=== PATIENT | male | born 1980 | race Caucasian/White ===

== ENCOUNTER 2021-06-06 14:15 | Outpatient (REF) | payer OTHER, SELFPAY ==
--- NOTE | ~2021-06-06 | MM_ITS ---
EXAMINATION: MM DIAGNOSTIC DIGITAL BREAST TOMOSYNTHESIS, BILATERAL US DIAGNOSTIC ULTRASOUND BREAST, LEFT CLINICAL INFORMATION: 41-year-old male with increased fullness left breast. Prior history asymmetric gynecomastia. No nipple discharge. COMPARISON: Mammography: 09/14/2018, bilateral breast ultrasound 09/14/2018. TECHNIQUE: Digital breast tomosynthesis is performed in both the craniocaudal and mediolateral oblique views along with computer-aided detection (CAD). Synthesized 2D images are generated from the tomosynthesis. Ultrasound left breast is targeted to the area of palpable fullness as well as the retroareolar and periareolar region. Grayscale imaging and color Doppler are performed without and with harmonics. FINDINGS: There are scattered areas of fibroglandular density (ACR BI-RADS breast composition Category b). Prominent bilateral retroareolar musculature again present similar to prior mammography 2019. There is prominent asymmetric retroareolar and central left gynecomastia similar in pattern to prior exam 2019, borderline increased by 1-2 cm. There is trace retroareolar right gynecomastia. There is no mass or abnormal calcifications. The axilla and skin contours are unremarkable. No skin thickening or coarsening of the stromal markings. Ultrasound left breast demonstrates gynecomastia pattern corresponding to the mammography. There is no superimposed cystic or solid mass or architectural abnormality. No skin thickening or edema tracking in soft tissue planes. Results are discussed with the patient at time of visit. MM/MM tomosynthesis diagnostic BI IMPRESSION: Left: -Prominent chronic asymmetric gynecomastia, borderline increased since 2019. -No mass or architectural abnormality. -Right: -Trace retroareolar gynecomastia. ASSESSMENT: BI-RADS 2: Benign RECOMMENDATION: Patient should be managed based on the clinical impression. If clinically indicated, further evaluation may be considered with surgical consult. Decision to proceed with biopsy should be based on clinical grounds and degree of clinical concern.
== END 2021-06-06 14:16 | disposition home or self-care (01) ==
LOC: HO.MAMMO 14:15
PROVIDERS: PCP Internal Medicine; Visit Provider Internal Medicine
DX: N64.4 Mastodynia (principal); N62 Hypertrophy of breast; N63.20 Unspecified lump in the left breast, unspecified quadrant
CPT/HCPCS: 76642; 77062; 77066

== ENCOUNTER 2022-08-14 13:16 | Outpatient (REF) | payer OTHER, SELFPAY ==
--- NOTE | ~2022-08-14 | MM_ITS ---
EXAMINATION: MM DIAGNOSTIC DIGITAL BREAST TOMOSYNTHESIS, BILATERAL US DIAGNOSTIC ULTRASOUND BREAST, BILATERAL CLINICAL INFORMATION: 42-year-old male with history asymmetric gynecomastia, greater on left. New fullness on right. No nipple discharge. COMPARISON: Mammography: 06/06/2021, 09/14/2018 (diagnostic baseline); bilateral ultrasound 09/14/2018, left ultrasound 06/06/2021. TECHNIQUE: Digital breast tomosynthesis is performed in both the craniocaudal and mediolateral oblique views along with computer-aided detection (CAD). Synthesized 2D images are generated from the tomosynthesis. Ultrasound bilateral breasts is performed using grayscale imaging and color Doppler without and with harmonics. FINDINGS: There are scattered areas of fibroglandular density (ACR BI-RADS breast composition Category b). There is normal prominent bilateral retromammary musculature similar to prior exams. There is bilateral gynecomastia type parenchymal pattern, greater on the left. Left breast gynecomastia is stable to borderline increased from prior exam in the right side is increased from prior studies. There is no focal underlying mass or architectural abnormality or abnormal calcifications. The axilla and skin contours are unremarkable. No skin thickening or coarsening of the stromal markings. Ultrasound bilateral breasts demonstrate no cystic or solid mass or architectural abnormality. There is a gynecomastia type pattern, slightly greater on the left. No skin thickening or edema tracking in soft tissue planes. No hyperemia. Results are discussed with the patient at time of visit. MM/MM tomosynthesis diagnostic BI IMPRESSION: -Bilateral asymmetric gynecomastia, greater on left. -Right gynecomastia is increased from prior exam. ASSESSMENT: BI-RADS 2: Benign RECOMMENDATION: Patient should be managed based on the clinical impression. If clinically indicated, further evaluation may be considered with surgical consult. Decision to proceed with biopsy should be based on clinical grounds and degree of clinical concern.
== END 2022-08-14 13:17 | disposition home or self-care (01) ==
LOC: HO.MAMMO 13:16
PROVIDERS: PCP Internal Medicine; Visit Provider Internal Medicine
DX: N62 Hypertrophy of breast (principal)
CPT/HCPCS: 76642; 77062; 77066

== ENCOUNTER 2023-03-05 06:12 | Day surgery (SDC) | payer OTHER, SELFPAY ==
[2023-03-03 14:55] VITALS: BMI 24.8
--- NOTE | 2023-03-04 10:11 | HO.ANESPROP2 ---
HPI - Anesthesia Eval Consult details Narrative: 43yo M for Upper Endoscopy and Colonoscopy FORMERLY [facility] Past Medical History Medical History PTSD (post-traumatic stress disorder) ADHD (attention deficit hyperactivity disorder) GERD (gastroesophageal reflux disease) Asthma Surgical History Surgical History Hx of knee surgery Social History Social History Patient Tobacco Use Status: Never used Tobacco Use of substances other than those prescribed or required for medical reasons: No Are you DNR?: No Advance Directives: No Advance Directives Information Provided: Yes Meds Allergies Allergy/AdvReac Type Severity Reaction Status Date / Time No Known Allergies Allergy Verified 03/05/23 06:23 Home Medications Medication Instructions Recorded Confirmed Last Taken Type atomoxetine 40 mg capsule 40 mg PO QAM 03/03/23 03/03/23 Unknown History omeprazole 20 mg capsule,delayed 20 mg PO DAILY 03/03/23 03/03/23 Unknown History release prazosin 2 mg capsule 2 mg PO BEDTIME 03/03/23 03/03/23 Unknown History Exam Height,Weight and Vital Signs: Height 5 ft 10 in Weight 78.471 kg Assessment and Plan Assessment Anesthesia Assessment: Chart Reviewed
[2023-03-05 06:17] VITALS: BMI 24.3
[2023-03-05 06:46] VITALS: BP 132/77; PULSE 72; RESP 16; TEMP 36.3; O2SAT 100
[2023-03-05] MEDS: Lactated Ringers 1,000 ML 100 ML IVCONT (06:47)
--- NOTE | 2023-03-05 07:22 | P.CONAN_ITS ---
[facility] Past Medical History Medical History PTSD (post-traumatic stress disorder) ADHD (attention deficit hyperactivity disorder) GERD (gastroesophageal reflux disease) Asthma Functional capacity: independent ambulation Family History Family history of problems with anesthesia: No Surgical History Surgical History Hx of knee surgery History of Problems with Anesthesia: No Social History Social History Patient Tobacco Use Status: Never used Tobacco Use of substances other than those prescribed or required for medical reasons: No Are you DNR?: No Advance Directives: No Advance Directives Information Provided: Yes Meds Allergies Allergy/AdvReac Type Severity Reaction Status Date / Time No Known Allergies Allergy Verified 03/05/23 06:23 Active Medications: Current Medications Albuterol Sulfate (Albuterol Sulfate (0.083%) 2.5 Mg/3 Ml Vial.Neb) 2.5 mg INHALE ONCE PRN PRN Reason: Shortness of Breath/Wheezing Lactated Ringer's (Lr) 1,000 mls @ 100 mls/hr IVCONT .Q10H MARTIN Last Admin: 03/05/23 06:47 Dose: 100 mls/hr Sodium Biphosphate/Sodium Phosphate (Sodium Phosphate,Sangamon-Dibasic 133 Ml Enema) 133 ml NV ONCE PRN PRN Reason: Poor Colonoscopy Prep Results Home Medications Medication Instructions Recorded Confirmed Last Taken Type atomoxetine 40 mg capsule 40 mg PO QAM 03/03/23 03/03/23 Unknown History omeprazole 20 mg capsule,delayed 20 mg PO DAILY 03/03/23 03/03/23 Unknown History release prazosin 2 mg capsule 2 mg PO BEDTIME 03/03/23 03/03/23 Unknown History Exam Height,Weight and Vital Signs: Height 5 ft 10 in Weight 76.929 kg Last Vital Signs Temp 97.4 F 03/05/23 06:46 Pulse 72 03/05/23 06:46 Resp 16 03/05/23 06:46 BP 132/77 03/05/23 06:46 Pulse Ox 100 03/05/23 06:46 O2 Del Method Room Air 03/05/23 06:46 Airway Mallampati Class: II TM Dist: >3cm Neck ROM: Full Heart: RRR Lungs: CTA Assessment and Plan Assessment Anesthesia Assessment: Anesthesia Plan Discussed Final Anesthetic Review Family History of Problems with Anesthesia: No History of Problems with Anesthesia: No ASA Class: II Final Preanesthetic Review: Meds/Allgs Chart Reviewed, Consent Obtained/Reviewed and Anes Risks/Benef Reviewed Patient Risk: Low Procedure Risk: Low Anesthetic Plan Anesthetic Plan: MAC: Disposition: Standard PACU
[2023-03-05 08:36] VITALS: BP 99/58; PULSE 78; RESP 16; TEMP 36.1; O2SAT 96
--- NOTE | 2023-03-05 08:37 | PM.OP ---
Brief Operative Note Date of Service: 03/05/23 Pre-op diagnosis: GERD, Change in BM's Post-op diagnosis: other (GERD, Internal hemorrhoids) Procedure: EGD with biopsies, Colonoscopy to the cecum and TI Surgeon: Luis Solorio MD Anesthesia: MAC Was an Assembler Adjuster used for this Procedure?: No Estimated blood loss (mL): 2.0 Pathology: other (A. Descending duodenum B. Gastric antrum C. EG Junction at 39cm) Condition: stable Disposition: PACU
[2023-03-05 08:52] VITALS: BP 102/63; PULSE 69; RESP 16; O2SAT 98
--- NOTE | 2023-03-05 08:52 | HO.POSTANES ---
Post Anesthesia Evaluation Post Anesthesia Evaluation Date of Service: 03/05/23 Vital Signs: Vital Signs Temp Pulse Resp BP Pulse Ox O2 Del Method 03/05/23 08:36 97 F 78 16 99/58 L 96 Room Air 03/05/23 06:46 97.4 F 72 16 132/77 100 Room Air Anesthesia: Monitored Mental Status: Awake Pain Control: Satisfactory Nausea/Vomiting: None Hydration: Adequate Anesthesia-Related Issues: No Anes. Related Issues
[2023-03-05 09:02] VITALS: BP 110/65; PULSE 63; RESP 16; TEMP 36.3; O2SAT 100
--- NOTE | 2023-03-05 09:20 | OP_ITS ---
DATE OF SERVICE: 03/05/2023 SURGEON: Luis Solorio MD INDICATIONS: The patient presents for evaluation of gastroesophageal reflux and change in bowel habits. Full consent has been obtained from him for this, including risks of bleeding and perforation. PREOPERATIVE DIAGNOSIS: POSTOPERATIVE DIAGNOSIS: PROCEDURE PERFORMED: Esophagogastroduodenoscopy with biopsies and colonoscopy to the cecum and terminal ileum. ESTIMATED BLOOD LOSS: COMPLICATIONS: ANESTHESIA: Monitored anesthesia care. ASSISTANTS: SPECIMENS: PREOPERATIVE DIAGNOSES: Gastroesophageal reflux and change in bowel habits. POSTOPERATIVE DIAGNOSES: Gastroesophageal reflux and change in bowel habits, minimal hiatal hernia, internal hemorrhoids. DESCRIPTION OF PROCEDURE: The patient was placed in the left lateral decubitus position. The Olympus video gastroscope was passed in the posterior oropharynx and upper esophagus under direct vision. The scope was passed slowly to the distal esophagus. The gastroesophageal junction appeared at 39 cm. There was some very minimal irregularity consistent with reflux but no evidence of any esophagitis nor Copeland's esophagus. There was a minimal hiatal hernia. The scope was advanced to the pylorus and the duodenum was cannulated to the descending portion. The duodenum including the bulb appeared normal without mass or ulceration. Biopsies were obtained from the second and third portions of the duodenum. The scope was withdrawn back to the stomach. The gastric antrum had some minimal areas of erythema, but no sign of any inflammation nor ulcers. There was good peristalsis. Biopsies were obtained from the antrum. The scope was retroflexed visualizing the proximal stomach carefully, which appeared normal, without any sign of mass or ulceration. The scope was straightened and withdrawn back to the esophagus. Biopsies were obtained at the EG junction at 39 cm. Proximal to this, the esophageal mucosa appeared normal. The scope was withdrawn from the patient. He was turned around for the colonoscopy. The digital rectal exam revealed no abnormalities. The Olympus video pediatric colonoscope was entered into the rectum and advanced easily to the cecum. Once in the cecum, I did identify normal-appearing cecal pouch with appendiceal orifice and a normal-appearing ileocecal valve. The terminal ileum was cannulated and appeared normal. The scope was withdrawn back in the colon. The entire cecum and ileocecal valve appeared normal. The scope was slowly withdrawn assessing all mucosal surfaces carefully. Preparation was excellent. I did not visualize any sign of polyps, colitis, or angiodysplasia. In the rectum, scope was retroflexed visualizing small internal hemorrhoids, but no other pathology. The rectal mucosa appeared normal. The scope was straightened and withdrawn from the patient. He tolerated both procedures well and was returned to recovery area in stable condition. IMPRESSION: 1. Minimal hiatal hernia and reflux. 2. Rule out celiac disease. 3. Internal hemorrhoids. PLAN: The results of the biopsies will be checked. At this point, he is doing well on his daily omeprazole and I did advise him to continue that. He was advised to increase dietary fiber and/or add a supplemental fiber such as Metamucil or Citrucel with plenty of water to help with his bowel movements. I would recommend a repeat colonoscopy in 10 years. He was advised not to use any aspirin and NSAIDs for 1 week. If things are stable, he will see me on a p.r.n. basis. MD VESNA Leblanc/NALLELY / [phone] MTDD
== END 2023-03-05 09:25 | disposition home or self-care (01) ==
PROVIDERS: PCP Internal Medicine; Visit Provider Internal Medicine
PROC: (CPT 45378; principal; 2023-03-05 07:30)
DX: R19.4 Change in bowel habit (principal); K64.8 Other hemorrhoids; K21.9 Gastro-esophageal reflux disease without esophagitis; K44.9 Diaphragmatic hernia without obstruction or gangrene; J45.909 Unspecified asthma, uncomplicated; F43.10 Post-traumatic stress disorder, unspecified; F51.5 Nightmare disorder; F90.9 Attention-deficit hyperactivity disorder, unspecified type; Z79.899 Other long term (current) drug therapy; Z98.890 Other specified postprocedural states
CPT/HCPCS: 45378; 43239; 88305; 88342; J2704

== ENCOUNTER 2024-06-10 16:34 | Emergency (ER) | payer OTHER, SELFPAY ==
--- NOTE | ~2024-06-10 | CT_ITS ---
CLINICAL HISTORY: headache CT head without contrast Comparison: None Findings: No intra-axial mass, midline shift, hydrocephalus, or acute hemorrhage. No significant atrophy-like change or white matter disease. There is partial opacification of the maxillary sinuses, ethmoid air cells and inferior frontal sinuses. The orbits are unremarkable. There is no acute fracture. IMPRESSION: 1. No acute intracranial findings. 2. Moderate paranasal sinus disease This document has been electronically signed by: Slava Shultz MD on 06/10/2024 18:38:09
[2024-06-10 17:39] VITALS: BP 143/86; PULSE 65; RESP 16; TEMP 35.8; O2SAT 100; BMI 25.0
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
[2024-06-10 20:32] VITALS: BP 147/88; PULSE 55; RESP 18; TEMP 36.4; O2SAT 100
[2024-06-10 22:17] VITALS: BP 137/88; PULSE 62; RESP 16; TEMP 36.6; O2SAT 100
[2024-06-10 22:57] LABS: MANUAL DIFF FLAG NO
[2024-06-10 22:59] LABS: Basophils Percent Auto 0.4 % (0-2); Eosinophils Absolute Auto 0.2 X10*3/uL (0.0-0.4); Hematocrit 40.9 % (42.0-52.0); Hemoglobin 14.3 g/dl (14.0-18.0); Imm Gran Abs Auto 0.01 X10*3/uL (0.00-0.03); Imm Gran Pct Auto 0.2 % (0.0-0.4); Lymphocytes Absolute Auto 2.1 X10*3/uL (1.2-4.9); Lymphocytes Percent Auto 40.9 % (20-40); Mean Corpuscular Hemoglobin 30.4 pg (27.0-33.0); Mean Corpuscular Volume 86.8 fL (80.0-98.0); Mean Platelet Volume 9.5 fL (9.4-12.4); Monocytes Absolute Auto 0.4 X10*3/uL (0.1-1.2); Monocytes Percent Auto 8.5 % (2-11); Neutrophils Absolute Auto 2.4 x10*3/uL (2.0-8.3); Platelet Count 159 X10*3/uL (160-400); Red Blood Count 4.71 X10*6/uL (4.60-5.80); Red Cell Distribution Width 12.4 % (11.0-16.0); White Blood Count 5.1 X10*3/uL (4.8-10.8)
[2024-06-10] MEDS: Butalb/Acetamin/Caff 50/325/40 TABLET 1 TAB PO (23:17)
[2024-06-10 23:21] LABS: Alanine Aminotransferase 21 U/L (0-40); Albumin Level 4.1 g/dL (3.5-5.0); Alkaline Phosphatase 53 U/L (39-117); Anion Gap 11 (12-20); Aspartate Amino Transferase 22 U/L (5-37); Bilirubin Direct 0.1 mg/dL (0.0-0.5); Bilirubin Total 0.4 mg/dL (0.0-1.0); Blood Urea Nitrogen 11 mg/dL (9-16); C Reactive Protein < 0.10 mg/dL (< or = 0.50); Calcium 9.2 mg/dL (8.4-10.2); Carbon Dioxide 26 mmol/L (22-29); Chloride 109 mmol/L (96-108); Creatinine Clr Calc Pharmacy 101.3; Estimated Glomerular Filt Rate > 60; Glucose Random 95 mg/dL (60-115); Magnesium 2.1 mg/dL (1.6-2.6); Potassium 4.7 mmol/L (3.3-5.1); Sodium 141 mmol/L (135-145); Total Protein 7.3 g/dL (6.5-8.0)
[2024-06-10 23:35] LABS: TSH reflex Free T4 3.66 uIU/mL (0.32-4.0)
[2024-06-10 23:40] LABS: Erythrocyte Sedimentation Rate 6 MM/HR (0-15)
[2024-06-11 00:24] VITALS: BP 137/94; PULSE 59; RESP 16; TEMP 36.6; O2SAT 99
[2024-06-11 00:25] VITALS: BP 137/94; PULSE 59; RESP 16; TEMP 36.6; O2SAT 99
== END 2024-06-11 00:25 | disposition home or self-care (01) ==
PROVIDERS: Nurse Practitioner Family; Emergency Provider Emergency Medicine
DX: R51.9 Headache, unspecified (principal); Z79.899 Other long term (current) drug therapy
CPT/HCPCS: 36415; 70450; 80048; 80076; 83735; 84443; 85025; 85652; 86140; 99284

== ENCOUNTER → 2024-06-10 17:47 | Outpatient (BNV) | payer OTHER, SELFPAY | PROVIDERS: Visit Provider Radiology Vascular & Interventional Radiology | DX: J34.89 Other specified disorders of nose and nasal sinuses (principal) | CPT/HCPCS: 70450 ==

== ENCOUNTER 2024-07-03 00:13 | Emergency (ER) | payer OTHER, SELFPAY ==
--- NOTE | 2024-07-03 | ECG_ITS ---
Test Reason : CP Blood Pressure : */* mmHG Vent. Rate : 62 BPM Atrial Rate : 62 BPM P-R Int : 180 ms QRS Dur : 104 ms QT Int : 390 ms P-R-T Axes : 19 -2 22 degrees QTcB Int : 395 ms Normal sinus rhythm Normal ECG No previous ECGs available Referred By: Generic ED Physician Electronically Signed By: BONI COOK
[2024-07-03 00:23] VITALS: BP 159/97; PULSE 69; RESP 20; TEMP 36.8; O2SAT 100; BMI 25.9
[2024-07-03 00:27] LABS: MANUAL DIFF FLAG NO
[2024-07-03 00:28] LABS: Basophils Percent Auto 0.6 % (0-2); Eosinophils Absolute Auto 0.2 X10*3/uL (0.0-0.4); Eosinophils Percent Auto 3.7 % (0-4); Hematocrit 39.8 % (42.0-52.0); Hemoglobin 13.9 g/dl (14.0-18.0); Imm Gran Abs Auto 0.01 X10*3/uL (0.00-0.03); Imm Gran Pct Auto 0.2 % (0.0-0.4); Lymphocytes Absolute Auto 2.2 X10*3/uL (1.2-4.9); Lymphocytes Percent Auto 41.9 % (20-40); Mean Corpuscular HGB Conc 34.9 g/dl (31.0-36.0); Mean Corpuscular Hemoglobin 30.2 pg (27.0-33.0); Mean Corpuscular Volume 86.3 fL (80.0-98.0); Mean Platelet Volume 9.6 fL (9.4-12.4); Monocytes Absolute Auto 0.5 X10*3/uL (0.1-1.2); Monocytes Percent Auto 9.7 % (2-11); Neutrophils Absolute Auto 2.3 x10*3/uL (2.0-8.3); Neutrophils Percent Auto 43.9 % (45-73); Platelet Count 171 X10*3/uL (160-400); Red Blood Count 4.61 X10*6/uL (4.60-5.80); Red Cell Distribution Width 12.2 % (11.0-16.0); White Blood Count 5.2 X10*3/uL (4.8-10.8)
[2024-07-03 00:47] LABS: Alanine Aminotransferase 24 U/L (0-40); Albumin Level 4.1 g/dL (3.5-5.0); Alkaline Phosphatase 54 U/L (39-117); Anion Gap 9 (12-20); Aspartate Amino Transferase 21 U/L (5-37); Bilirubin Total 0.2 mg/dL (0.0-1.0); Blood Urea Nitrogen 12 mg/dL (9-16); Carbon Dioxide 28 mmol/L (22-29); Chloride 109 mmol/L (96-108); Creatinine Clr Calc Pharmacy 94.5; Estimated Glomerular Filt Rate > 60; Glucose Random 112 mg/dL (60-115); Potassium 3.5 mmol/L (3.3-5.1); Sodium 142 mmol/L (135-145); Total Protein 6.9 g/dL (6.5-8.0)
[2024-07-03 00:54] LABS: Troponin-I High Sensitivity < 2.7 ng/L (<3.5-35.0)
--- OUTSIDE RECORDS SUMMARY | 2024-07-03 00:57 | XMS_ITS ---
Author Name [facility] [place] Address [address] [place] [address] Care Team Providers Care Payroll Master Name Role Phone SHELL TRAN Primary Care Provider Unavailabl e Insurance Providers: All historical and current Section Date Range: From patient's date of to the date document was created. This section includes the names of all active insurance providers for the patient. Insurance Provider Type of Coverage Plan Name Start of Policy Coverage End of Policy Coverage Group Number Member ID Insurance Provider's Telephone Number Policy Turner's Name Patient's Relationship to Policy Turner [facility] CE ORGANIZAT ION [facility] Sep 28, 2020 [id number] [phone] ESTELAVIANEYSHONDA VERGARA PATIENT OPTUM RX [id number] PREFERRED PROVIDER ORGANIZAT ION (PPO) HEALT H [facility] [place] July 29, 2022 [id number] [phone] ESTELASHERIF SHONDA PATIENT UMR PREFERRED PROVIDER ORGANIZAT ION (PPO) HEALT H [facility] [place] July 29, 2022 [id number] [phone] ESTELAVIANEYSHONDA VERGARA PATIENT UMR* PREFERRED PROVIDER ORGANIZAT ION (PPO) HEALT H [facility] [place] July 29, 2022 [id number] [phone] SHONDA BARLOW PATIENT Selected Encounter This section includes the information on record at [place] for the Encounter. Date/Time Encounter Type Encounter Description Reason Provider Source Sep 04, 2023 01:00 PM THERAPEUTIC EXERCISES PHYSICAL THERAPY ICD-10-CM M54.50 Low back pain, unspecified HUE GATES Chad Encounter Template Text not used by [place] Assessments - Encounter Diagnoses This section includes the primary and secondary diagnoses documented for the Encounter. Date/Time Primary/Secondary Diagnosis Diagnosis Name Provider Source Sep 04, 2023 01:48 PM PRIMARY Low back pain, unspecified [place] [facility] [place] [facility] Plan of Treatment: Future Appointments (+ 6 months) and Future Tests (+/- 45 days) The Plan of Treatment section includes future care activities for the [facility] [place] [facility] This section includes future appointments and future orders which are active, pending or scheduled. Future Appointments This section includes appointments that were scheduled to occur 6 months from the date of the Encounter, up to a maximum of 20 appointments. The data comes from all [place] treatment facilities. Appointment Date/Time Appointment Type Appointme nt Facility Name Nov 17, 2023 09:00 AM AMBULATORY - MEDICINE [facility] Social History: Smoking Status (Most current) and Tobacco Use (All prior to encounter date) This section includes the most current, and the historical, smoking and tobacco- related health factors from the [facility] facility where the Encounter took place. Current Smoking Status This section includes the most current smoking, or tobacco-related health factor, from the [place] facility where the Encounter took place. Date/Time Current Smoking Status Comment Nishant valderrama Nov 20, 2022 01:00 PM [facility] Tobacco Use History This section includes a history of the smoking, or tobacco-related health factors, that were collected on or before the date of the Encounter. The data comes from the [place] facility where the Encounter took place. Date/Time Smoking Status/Tobacco Use Comment F acility Sep 05, 2021 01:00 PM VA-TOBACCO NEVER USED [place] [facility] [place] [facility] May 10, 2020 09:00 AM VA-TOBACCO NEVER USED [place] [facility] [place] [facility] Jan 07, 2019 10:45 AM VA-TOBACCO NEVER USED [place] [facility] [place] [facility] Jul 24, 2017 12:53 PM LIFETIME NON-TOBACCO USER [place] [facility] [place] [facility] Jul 15, 2016 09:35 AM LIFETIME NON-TOBACCO USER [place] [facility] [place] [facility] Sep 21, 2012 02:42 PM LIFETIME NON-TOBACCO USER [place] [facility] [place] [facility] Encounter Notes: All associated encounter notes This section contains the clinical notes associated to the Encounter. Date/Time Encounter Note(s) Provider Source Sep 04, 2023 12:44 PM PHYSICAL THERAPY N OTE: LOCAL TITLE: PHYSICAL THERAPY STANDARD TITLE: PHYSICAL THERAPY NOTE DATE OF NOTE: SEP 04, 2023@12:44 ENTRY DATE: SEP 04, 2023@12:44:31 AUTHOR: HUE GATES COSIGNER: URGENCY: STATUS: COMPLETED Initial Evaluation date: Jun Treat Date: 09/04/23 Treatment #:3 Treatment time: 30 mins Diagnosis: Low back pain, unspecified(ICD-10-CM M54.50) Provider: [facility] Precautions: Patient identified by full name and date of SUBJECTIVE: surgery 08/19 torn meniscus repair fraying trimed out had some fraying on underside of the knee cap. They trimmed it out. Then i had some increase swelling they did a cortizone injection, taped for lateral assist. [facility] in [place], this morning for cortizone and taping. Getting seen for PT for the knee at [facility], every other day since. I am scheduled to wrap up with them on 09/07 last scheduled. Back is on and off again. But this is due to sitting more than I want given the knee surgery. I need to be moving to feel better. 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 I do still get the tightness in the low back but it is not as much as it had been. OBJECTIVE: THERAPEUTIC EXERCISE: MINUTES:25 self massage release gluteals with softball gluteal foam rolling TA bracing in seated with heel pull into chair legs.(alt with shoulder extension into thighs) SELF CARE/EDUCATION: MINUTES: HEP:Access Code: [email or web address] Patient education was provided for all aspects of care during this clinical encounter. ASSESSMENT:Patient had left knee meniscectomy on 08/19, since has been being seen at [facility] for PT follow up care. The patient returned to PT [place] today reporting he has 2 more visits with [facility] PT. Pt was scheduled for follow up here in 3 weeks to ensure no conflicts with care. The patient reported overall significant reduction in pain levels, frequency and duration of low back pains. The patient noted benefit from last PT session where we worked on STM of the gluteals to loosen up the area to decrease mechanical forces on the lumbar region. The patient was shown how to self mobilize the area with softball on wall today, with note of feeling looser following. Patient noted he has trouble with core activation. Patient was instructed in TA bracing with external activation for improved quality of contraction and ability to actively breath while engaging TA. PLAN: [x]Continue with plan of care. [x]Pt to perform HEP as prescribed. Goals, within: []2-4 wks [x]4-6wks []8wks [x]Increase walking/standing tolerance to 60 minutes in order to Ambulate community distances independently with pain < 2/10. [x]Return to recreational activities at [facility], symptom free. [x]Pt will report no increase in pain in the lumbar region > 2/10 with transition from sitting to standing to improve QOL. [x]Pt will increase supine 90/90 by 10-20 degrees to demonstrate increase in HS length. [x]Pt will decrease prone passive knee flexion restriction to demonstrate improved hip flexor/quad length to minimal restriction. [x]Pt will be independent with HEP for increased LE flexibility and optimal progress with PT. PLAN: Pt to be seen 1x/2-3weeks for 2-3 more sessions working on progressive strengthening for more functional movements/activities POC to include: []Low impact cardio: []Nustep []Recumbent bike []Recumbent elliptical []TM [x]Manual: [x]STM/DTM []METs/SCS [x]IASTM [x]Joint mobilizations [x]Therex: [x]Progressive Core [x]Progressive LQ [x]Lumbar flex [x]LQ flex [x] Foam rolling [x]Neuro Re-education: []Static [x]Dynamic []Dual-Task [x]Education: []Posture []Ergonomics [x]Bodymechanics []Self-care strategies [] PNE [x]Modalities(PRN): [x]Heat/Ice []Estim/Tens []Mechanical traction []K-tape [] Biofreeze [x]At next visit: pallof press, elevated planks, side planks (+thread the needle when ready) as ready: Good mornings, DL to stairs progressive weights, SLRDL stairs with cones and progressive weights (both progress to floor as ready) wall sits, wall squats( as knee permits) /glenny/ HUE GATES, PT, DPT PHYSICAL THERAPIST Signed: 09/04/2023 13:48 HUE GATES [facility] [place] [facility]
--- OUTSIDE RECORDS SUMMARY | 2024-07-03 00:57 | XMS_ITS | Encounter Summary ---
Author Name [facility] [place] [facility] [place] [facility] [place] Address [address] [place] [address] Care Team Providers Care Mechanic Name Role Phone MARC SHELL Primary Care Provider Unavailabl e Insurance Providers: [...] Name Patient's Relationship to Policy Turner [facility] CE ORGANIZAT ION [facility] Sep 28, 2020 [id number] [phone] SHONDA BARLOW PATIENT OPTUM RX [id number] PREFERRED PROVIDER ORGANIZAT ION (PPO) HEALT H [facility] [place] July 29, 2022 [id number] [phone] SHONDA BARLOW PATIENT UMR PREFERRED PROVIDER ORGANIZAT ION (PPO) HEALT H [facility] [place] July 29, 2022 [id number] [phone] SHONDA BARLOW PATIENT UMR* PREFERRED PROVIDER ORGANIZAT ION (PPO) HEALT H [facility] [place] July 29, 2022 [id number] [phone] ESTELASHONDA GORMAN PATIENT Selected Encounter This section includes the information on record at [place] for the Encounter. Date/Time Encounter Type Encounter Description Reason Provider Source Nov 17, 2023 09:00 AM OFFICE O/P EST MOD 30 MIN PRIMARY CARE/MEDICINE ICD-10-CM Z77.29 Contact with and exposure to other hazardous substances SHELL TRAN Chad Encounter Template Text not used by [place] Assessments - Encounter Diagnoses This section includes the primary and secondary diagnoses documented for the Encounter. Date/Time Primary/Secondary Diagnosis Diagnosis Name Provider Source Nov 17, 2023 09:40 AM PRIMARY Contact with and exposure to other hazardous substances FURCOLO,SHELL [facility] [place] [facility] Nov 17, 2023 09:40 AM SECONDARY Attention-deficit hyperactivity disorder, unspecified type FURCOLO,SHELL [facility] [place] [facility] Nov 17, 2023 09:40 AM SECONDARY Cough variant asthma FURCOLO,SHELL [facility] [place] [facility] Nov 17, 2023 09:40 AM SECONDARY Gastro-esophageal reflux disease without esophagitis FURCOLO,SHELL [facility] [place] [facility] Nov 17, 2023 09:40 AM SECONDARY Low back pain, unspecified FURCOLO,SHELL [facility] [place] [facility] Nov 17, 2023 09:40 AM SECONDARY Mastodynia FURCOLO,SHELL [facility] [place] [facility] Nov 17, 2023 09:40 AM SECONDARY Pain in unspecified knee FURCOLO,SHELL [facility] [place] [facility] Nov 17, 2023 09:40 AM SECONDARY Post-traumatic stress disorder, unspecified FURCOLO,SHELL [facility] [place] [facility] Nov 17, 2023 09:40 AM SECONDARY Varicose veins of other specified sites FURCOLO,SHELL [facility] [place] [facility] Plan of Treatment: Future Appointments (+ 6 months) and Future Tests (+/- 45 days) The Plan of Treatment section includes future care activities for the patient from all [place] treatmentfacilities. This section includes future appointments and future orders which are active, pending or scheduled. Future Appointments This section includes appointments that were scheduled to occur 6 months from the date of the Encounter, up to a maximum of 20 appointments. The data comes from all [place] treatment facilities. Appointment Date/Time Appointment Type Appointme nt Facility Name Mar 22, 2024 11:00 AM AMBULATORY - NONE [facility] [place] [facility] Mar 30, 2024 08:30 AM AMBULATORY - MEDICINE [facility] [place] [facility] Vital Signs: All taken on the encounter date This section contains inpatient and outpatient Vital Signs collected on the date of the Encounter. Date/Time Temperature Pulse Blood Pressure Respiratory Rate SP02 Pain Height Weight Body Mass Index Source Nov 17, 2023 09:01 AM 97.5 58 131/81 16 100 4 177 25 [place] [facility] [place] [facility] Social History: Smoking Status (Most current) and Tobacco Use (All prior to encounter date) This section includes the most current, and the historical, smoking and tobacco- related health factors from the [place] facility where the Encounter took place. Current Smoking Status This section includes the most current smoking, or tobacco-related health factor, from the [place] facility where the Encounter took place. Date/Time Current Smoking Status Comment Nishant ity Nov 17, 2023 09:00 AM VA-TOBACCO NEVER USED [place] [facility] [place] [facility] Tobacco Use History This section includes a history of the smoking, or tobacco-related health factors, that were collected on or before the date of the Encounter. The data comes from the [place] facility where the Encounter took place. Date/Time Smoking Status/Tobacco Use Comment F acbrandy Nov 20, 2022 01:00 PM VA-TOBACCO NEVER USED [facility] [place] [facility] Sep 05, 2021 01:00 PM VA-TOBACCO NEVER USED [facility] [place] [facility] May 10, 2020 09:00 AM VA-TOBACCO NEVER USED [facility] [place] [facility] Jan 07, 2019 10:45 AM VA-TOBACCO NEVER USED [facility] [place] [facility] Jul 24, 2017 12:53 PM LIFETIME NON-TOBACCO USER [facility] [place] [facility] Jul 15, 2016 09:35 AM LIFETIME NON-TOBACCO USER [facility] [place] [facility] Sep 21, 2012 02:42 PM LIFETIME NON-TOBACCO USER [facility] [place] [facility] Encounter Notes: All associated encounter notes This section contains the clinical notes associated to the Encounter. Date/Time Encounter Note(s) Provider Source Nov 17, 2023 09:06 AM PREVENTIVE MEDICIN E NURSING NOTE: LOCAL TITLE: CLINICAL REMINDERS/NURSING STANDARD TITLE: PREVENTIVE MEDICINE NURSING NOTE DATE OF NOTE: NOV 17, 2023@09:06 ENTRY DATE: NOV 17, 2023@09:06:57 AUTHOR: CECIL MORALES EXP COSIGNER: URGENCY: STATUS: COMPLETED Tobacco Use Screening: The patient has never used tobacco. Alcohol Use Screen (AUDIT-C): Alcohol Screen: SCREEN FOR ALCOHOL (AUDIT-C) An alcohol screening test (AUDIT-C) was negative (score=0). 1. How often did you have a drink containing alcohol in the past year? Consider a drink to be a 12 ounce can or bottle of regular beer, 8 ounces of malt liquor, a 5 ounce glass of table wine, or a 1.5 ounce shot of liquor (like scotch, gin, or vodka). Never 2. How many drinks containing alcohol did you have on a typical day when you were drinking in the past year? Response not required due to responses to other questions. 3. How often did you have six or more drinks on one occasion in the past year? Response not required due to responses to other questions. /shweta/ CECIL MORALES LPN License Practical Nurse Signed: 11/17/2023 09:07 CECIL MORALES [place] [facility] [place] [facility] Nov 17, 2023 09:06 AM PHYSICIAN NOTE: LOCAL TITLE: MD NOTE STANDARD TITLE: PHYSICIAN NOTE DATE OF NOTE: NOV 17, 2023@09:06 ENTRY DATE: NOV 17, 2023@09:06:28 AUTHOR: SHELL TRAN EXP COSIGNER: URGENCY: STATUS: COMPLETED SHONDA BARLOW is a 43 year old WHITE MALE who is being seen today in primary care for routine follow up. == CARE TEAM == Community Primary Care Provider: [place] Specialists: VISHAL Flores Community Specialists: ortho- Dr. 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, +[place]- burn pits == HISTORY OF PRESENT ILLNESS == Patient presents today for routine follow-up. seen in ER for vertigo- given meclizine- somewhat effective- lasted 4 hrs knee surgery a few months ago- workmans comp == RELEVANT PAST MEDICAL HISTORY == Active problems - Computerized Problem List is the source for the followin. Scrotal varices 2. Posttraumatic stress disorder 3. Attention deficit hyperactivity disorder 4. Gastroesophageal reflux disease 5. Exposure to potentially hazardous substance 6. Gynecomastia 7. Left knee pain (SNOMED CT [id number]) 8. Cough variant asthma 9. Postconcussion syndrome 10. Low back pain (SNOMED CT [id number]) 11. 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 Active and Recently Outpatient Medications (excluding Supplies): Active Outpatient Medications Status 1) ALBUTEROL 90MCG (CFC-F) 200D ORAL INHL INHALE 2 PUFFS ACTIVE BY MOUTH EVERY 6 HOURS NEEDED 2) IBUPROFEN 800MG TAB TAKE ONE TABLET BY MOUTH THREE ACTIVE TIMES A DAY FOR PAIN TAKE WITH FOOD 3) OMEPRAZOLE 20MG EC CAP TAKE ONE CAPSULE BY MOUTH ACTIVE EVERY MORNING 30 MINUTES BEFORE BREAKFAST 4) PRAZOSIN HCL 2MG CAP TAKE ONE CAPSULE BY MOUTH AT ACTIVE BEDTIME FOR NIGHTMARE 5) PSYLLIUM ORAL PWD TAKE 2 TEASPOONFULS BY MOUTH ONCE ACTIVE DAILY FOR CONSTIPATION (MIX WITH AT LEAST 8OZ. OF WATER OR OTHER FLUID) Active Non-VA Medications Status 1) Non-VA MULTIVITAMIN/MINERALS CAP/TAB 1 TABLET BY ACTIVE MOUTH 2) Non-VA OMEPRAZOLE 20MG EC CAP 20MG BY MOUTH EVERY ACTIVE MORNING 30 MINUTES BEFORE BREAKFAST 7 Total Medications == REVIEW OF SYMPTOMS == NEGATIVE FOR: CONSTITUTION: no weight loss/gain, fatigue, fevers, night sweats HEENT: no vision problems, hearing loss,swallowing difficulties, sinus pain CV: no chest pain, palpitations, dyspnea on exertion, orthopnea RESP: no cough, shortness of breath, wheezing GI: no abdominal pain, N/V/D, constipation, blood in stool, normal appetite : no urinary frequency, nocturia, hematuria MUSC: no joint pain, joint swelling, muscle aches NEURO: no headaches, dizziness, memory loss, tremor, weakness PSYCH: no depression, anxiety, suicidal or homicidal thoughts SKIN: no rash, new skin lesions == PHYSICAL EXAM == Vitals: - - - - - - - B/P: 131/81 (11/17/2023 09:01) pulse: 58 (11/17/2023 09:01) resp: 16 (11/17/2023 09:01) temp: 97.5 F [36.4 C] (11/17/2023 09:01) Ht: 70 in [177.8 cm] (05/21/2023 13:11) Wgt: 177 lb [80.29 kg] (11/17/2023 09:01) BMI: BMI: 25.4 Exam: - - - - - - - General: A&O x 3, no acute distress, normal affect and mood Neck: normal thyroid, normal carotids- no bruits CV: RRR S1S2, no murmur Resp: LCTA bilat, no wheezing, rales or rhonchi Neuro: grossly intact, no visible tremor, normal memory and speech Extremities: normal movement of extremities, normal gait, normal strength no LE edema == RECENT LABS == BMP (FASTING) Collection DT Specimen Test Name Result Units Ref Range 05/21/2023 12:15 SERUM UREA NITROGEN 13 mg/dL 7 - 25 05/21/2023 12:15 SERUM GLUCOSE 93 mg/dL 65 - 100 05/21/2023 12:15 SERUM SODIUM 142 mmol/L 135 - 145 05/21/2023 12:15 SERUM POTASSIUM 3.9 mmol/L 3.5 - 5.0 05/21/2023 12:15 SERUM CHLORIDE 107 mmol/L 100 - 110 05/21/2023 12:15 SERUM CO2 28 mEq/L 20 - 05/21/2023 12:15 SERUM CREATININE, Serum 1.07 mg/dL 0.50 - 1.40 02/28/2021 07:28 SERUM !! eGFR (IDMS) >60 Ref: >=60 !! Indicates COMMENTS AVAILABLE...Refer to Interim Lab Report. LIVER PANEL TREND Collection DT Spec AST ALT T BILI ALK GLORIA T. PROT ALBUMIN 05/21/2023 12:15 SERUM 21 15 0.5 49 6.7 4.1 06/18/2022 10:48 SERUM 23 42 0.3 50 7.0 4.0 10/25/2021 13:54 SERUM 18 15 0.4 45 6.7 3.9 02/28/2021 07:28 SERUM 19 21 0.4 52 6.7 3.9 05/10/2020 08:00 SERUM 41 H 59 H 0.3 41 7.0 4.0 LIPID PANEL TREND Collection DT Spec CHOL HDL CHO/HDL LDL-c TRIG 05/21/2023 12:15 SERUM 164 47 3.5 109 42 05/06/2022 07:43 SERUM 176 47 3.7 119 51 02/28/2021 07:28 SERUM 166 44 3.8 111 53 05/10/2020 08:00 SERUM 131 44 3.0 78 43 07/23/2017 09:01 SERUM 151 48 3.1 92 55 CBC TREND Collection DT Spec WBC RBC HGB HCT MCV MCH PLT 05/21/2023 12:15 BLOOD 3.49 L 4.78 14.2 42.2 88.3 29.7 204 05/06/2022 07:43 BLOOD 4.18 L 4.88 14.7 42.7 87.5 30.1 184 10/25/2021 13:54 BLOOD 4.80 4.46 13.4 39.9 89.5 30.0 190 02/28/2021 07:28 BLOOD 3.81 L 4.98 14.8 44.9 90.2 29.7 175 05/10/2020 08:00 BLOOD 3.99 L 5.03 14.9 45.4 90.3 29.6 202 == ASSESSMENT AND PLAN == Active problems - Computerized Problem List is the source for the followin. Scrotal varices- stable on ultrasound- no need ot repeat 2. Posttraumatic stress disorder- sees MH. on prazosin prn 3. Attention deficit hyperactivity disorder- no longer on ADD meds, does drink a lot of energy drinks 4. Gastroesophageal reflux disease- on PPI 5. Exposure to potentially hazardous substance- +burn pit exposures 6. Gynecomastia- bilat, has seen Dr. Mark mulligan 7. Left knee pain (SNOMED CT [id number])- recent left knee meniscal surgery (second time)- happened on the alicia. is tryingt o get back to gentle jogging 8. Cough variant asthma- mostly exercise indured- uses inhaler priro to exercise 9. Postconcussion syndrome- some memory issues. will check TSH adn B12 on next lab draw 10. Low back pain (SNOMED CT 708559511)- chronci in nature 11. Pain in joint involving shoulder region == HEALTH MAINTENANCE == Colonoscopy- already had screening- next due February 2033 Abdominal Aortic Aneurysm Screening- n/a never smoked Prostate screening - at age 56 Tetanus: due every 10 years Pneumonia Vacccine: Flu Vaccine: due yearly Covid Vaccine: due yearly == FOLLOW UP == f/u in 6 mo VISIT TYPE: a MODERATE complexity visit where 30 minutes was spent in direct patient care, review of records and documentation. Tobacco Use Screening: The patient has never used tobacco. Alcohol Use Screen (AUDIT-C): Alcohol Screen: SCREEN FOR ALCOHOL (AUDIT-C) An alcohol screening test (AUDIT-C) was negative (score=0). 1. How often did you have a drink containing alcohol in the past year? Consider a drink to be a 12 ounce can or bottle of regular beer, 8 ounces of malt liquor, a 5 ounce glass of table wine, or a 1.5 ounce shot of liquor (like scotch, gin, or vodka). Never 2. How many drinks containing alcohol did you have on a typical day when you were drinking in the past year? Response not required due to responses to other questions. 3. How often did you have six or more drinks on one occasion in the past year? Response not required due to responses to other questions. /shweta/ SHELL TRAN D.O. PHYSICIAN Signed: 11/17/2023 09:41 SHELL TRAN [facility]
--- OUTSIDE RECORDS SUMMARY | 2024-07-03 00:58 | XMS_ITS ---
Author Name [facility] [place] [facility] [place] [facility] [facility] [place] Address [address] [place] [address] Care Team Providers Care Complaint Evaluation Officer Name Role Phone MARC SHELL Primary Care [...] Name Patient's Relationship to Policy [facility] CE ORGANIZAT ION [facility] Sep 28, 2020 [id number] SHONDA BARLOW PATIENT [place] RX [id number] PREFERRED PROVIDER ORGANIZAT ION (PPO) [facility] [place] July 29, 2022 [id number] [phone] SHONDA BARLOW PATIENT UMR PREFERRED PROVIDER ORGANIZAT ION (PPO) [facility]ALT [facility] July 29, 2022 [id number] [phone] SHONDA BARLOW PATIENT UMR* PREFERRED PROVIDER ORGANIZAT ION (PPO) HEALT H NEW [facility] [place] July 29, 2022 [id number] [phone] ESTELASHONDA GORMAN PATIENT Selected Encounter This section includes the information on record at [place] for the Encounter. Date/Time Encounter Type Encounter Description Reason Provider Source Mar 30, 2024 08:30 AM OFFICE O/P EST MOD 30 MIN PRIMARY CARE/MEDICINE ICD-10-CM M54.50 Low back pain, unspecified FURCOLO,SHELL IHE Encounter Template Text not used by [place] Assessments - Encounter Diagnoses This section includes the primary and secondary diagnoses documented for the Encounter. Date/Time Primary/Secondary Diagnosis Diagnosis Name Provider Source Mar 30, 2024 09:12 AM PRIMARY Low back pain, unspecified FURCOLO,SHELL [facility] Plan of Treatment: Future Appointments (+ 6 months) and Future Tests (+/- 45 days) The Plan of Treatment section includes future care activities for the patient from [facility] [place] [facility]. This section includes future appointments and future orders which are active, pending or scheduled. Future Appointments This section includes appointments that were scheduled to occur 6 months from the date of the Encounter, up to a maximum of 20 appointments. The data comes from all [place] treatment facilities. Appointment Date/Time Appointment Type Appointme nt Facility Name Jun 16, 2024 03:30 PM [facility] Jul 05, 2024 09:00 AM [facility] Vital Signs: All taken on the encounter date This section contains inpatient and outpatient Vital Signs collected on the date of the Encounter. Date/Time Temperature Pulse Blood Pressure Respiratory Rate SP02 Pain Height Weight Body Mass Index Source Mar 30, 2024 08:22 AM 97.7 60 132/87 16 100 5 177 25 [facility] Social History: Smoking Status (Most current) and Tobacco Use (All prior to encounter date) This section includes the most current, and the historical, smoking and tobacco- related health factors from the [place] facility where the Encounter took place. Current Smoking Status This section includes the most current smoking, or tobacco-related health factor, from the [place] facility where the Encounter took place. Date/Time Current Smoking Status Comment Nishant valderrama Nov 17, 2023 09:00 AM [place]-TOBACCO NEVER USED [facility] Tobacco Use History This section includes a history of the smoking, or tobacco-related health factors, that were collected on or before the date of the Encounter. The data comes from the [place] facility where the Encounter took place. Date/Time Smoking Status/Tobacco Use Comment F acility Nov 20, 2022 01:00 PM VA-TOBACCO NEVER USED [facility] [place] [facility] Sep 05, 2021 01:00 PM VA-TOBACCO NEVER USED [facility] [place] [facility] May 10, 2020 09:00 AM VA-TOBACCO NEVER USED [facility] [place] [facility] Jan 07, 2019 10:45 AM VA-TOBACCO NEVER USED [facility] [place] [facility] Jul 24, 2017 12:53 PM LIFETIME NON-TOBACCO USER [facility] [place] [facility] Jul 15, 2016 09:35 AM LIFETIME NON-TOBACCO USER [facility] [place] [facility] Sep 21, 2012 02:42 PM LIFETIME NON-TOBACCO USER [place] [facility] [place] [facility] Radiology Reports: +/- 30 days of the encounter Radiology Reports For cases when an order for radiology services may have been completed prior to the date of the Encounter, the report list includes the Radiology Reports that were completed up to 30 days before dateof the Encounter. For cases when an order for radiology services may have been completed after the date of the Encounter, the report list also includes the Radiology Reports that were completed up to30 days after date of the Encounter. The data comes from all [place] treatment facilities. Date/Time Radiology Report Provider Source Mar 22, 2024 11:00 AM ABDOMINAL ULTRASOU ND: SHONDA BARLOW [id number] -[id number] M Exm Date: MAR 22, 2024@11:00 Req Phys: SHELL TRAN Loc: CWM/NO/PACT EIGHT (Req'g Loc) Img Loc: ULTRASOUND Service: Unknown [place] [facility] [place] [facility] [place] [id number] (Case 17 COMPLETE) ULTRASOUND ABDOMEN LIMITED (US Detailed) CPT:99462 Reason for Study: liver lesion follow-up Clinical History: Report Status: Verified Date Reported: MAR 22, 2024 Date Verified: MAR 22, 2024 Medical Practice Assistant E-Sig:/ES/MARICEL CONWAY Report: ECHO EXAM OF ABDOMEN Comparison: Abdominal ultrasound March 17, 2023 and February 26, 2022 and May 29, 2020 REASON FOR STUDY: liver lesion follow-up HISTORY: Reason for Study: liver lesion follow-up FINDINGS: Multiple sonographic images of the right upper quadrant of the abdomen. Liver: 14.8 cm craniocaudad dimension. 1.1 cm right liver well-circumscribed avascular hyperechoic nodule. This previously measured 1.4 cm 2022 and 1.1 cm in 2021 and 1.1 cm May 2020. Antegrade flow in the main portal vein. Gallbladder: 2.1 mm gallbladder wall thickness. No cholelithiasis. Reportedly negative sonographic Portillo sign. Normal gallbladder wall thickness. No significant pericholecystic fluid. No significant change in gallbladder polyps measuring up to 3.8 mm. Biliary tree: 2.7 mm extrahepatic biliary ductal caliber. No significant biliary ductal dilation. Spleen: Maximal dimension of 9.6 cm. Normal size. Ascites: None seen. Other: No other significant findings. Impression: 1. No significant change in 1.1 cm hyperechoic liver nodule compatible with hemangioma. 2. No significant change in gallbladder polyps measuring up to 3.8 mm since May 2020. Gallbladder polyp follow-up guidelines (joint guidelines MARTHA, EAES, EFISDS, ESGE): No risk factors for gallbladder malignancy: <6mm: ultrasound at 1, 3 and 5 years. Risk factors for gallbladder malignancy: <6mm: ultrasound at 6 months, 1, 2, 3, 4, 5 years. Primary Diagnostic Code: No immediate attention required Primary Interpreting Staff: MARICEL CONWAY, Staff Physician (Medical Practice Assistant) /MARICEL SINGH [facility] Encounter Notes: All associated encounter notes This section contains the clinical notes associated to the Encounter. Date/Time Encounter Note(s) Provider Source May 05, 2024 01:34 PM PREVENTIVE MEDICIN E NURSING NOTE: LOCAL TITLE: CLINICAL REMINDERS/NURSING STANDARD TITLE: PREVENTIVE MEDICINE NURSING NOTE DATE OF NOTE: MAY 05, 2024@13:34 ENTRY DATE: MAY 05, 2024@13:34:37 AUTHOR: CECIL MORALES EXP COSIGNER: URGENCY: STATUS: COMPLETED Hepatitis B Serology/Immunization: Hepatitis B vaccine given previously - written records available Hepatitis B vaccine - standard 3 dose series (Energix, Recombivax, etc) Documented: HEP B, ADULT Historical Date Administered: Oct 14, 2000 Series: Series 1 Outside Location: Outside Healthcare Provider Information Source: FROM OTHER REGISTRY Documented: HEP B, ADULT Historical Date Administered: Nov 28, 2000 Series: Series 2 Outside Location: Outside Healthcare Provider Information Source: FROM OTHER PROVIDER Documented: HEP B, ADULT Historical Date Administered: Feb 16, 2002 Series: Series 3 Outside Location: Outside Healthcare Provider Information Source: FROM OTHER PROVIDER /shweta/ CECIL MORALES LPN License Practical Nurse Signed: 05/05/2024 13:37 CECIL MORALES [place] [facility] [place] [facility] Mar 30, 2024 08:29 AM PHYSICIAN NOTE: LOCAL TITLE: MD NOTE STANDARD TITLE: PHYSICIAN NOTE DATE OF NOTE: MAR 30, 2024@08:29 ENTRY DATE: MAR 30, 2024@08:29:11 AUTHOR: SHELL TRAN COSIGNER: URGENCY: STATUS: COMPLETED SHONDA BARLOW is a 44 year old WHITE MALE who is being seen today in primary care for back pain and right groin pain == CARE TEAM == Community Primary Care Provider: GABI Specialists: VISHAL Flores [facility] Specialists: huy GRAHAM == HISTORY == PERIOD OF SERVICE - [facility] CONNECTED % - 90 SC Percent: 90% Rated Disabilities: 2ND DEGREE RODRIGUEZ (0%-SC) 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, +ANIBAL- burn pits == HISTORY OF PRESENT ILLNESS == recurrent episodes 1 month ago- had fast heart rate and sweaty sensation- happens every few months or every 6 motnhs, has had holter montiors- never capture the event. has gone to ER in past- negative for NM bilat lower back pain- started prior to u/s apt around 03/20- no knonw injury. h/o back pain with flare ups periodically. no blood in urine. no numbness or pain in foot- stays in low back- bilat paravertebral. sitting and standing makes worse- walking/movement better has started to get better- took ibuprofen for 4-5 days right groin pain started 03/22- does not radiate into testicle. feel in anterior right hip into deep rigth groin. == RELEVANT PAST MEDICAL HISTORY == Active problems - Computerized Problem List is the source for the followin. Exposure to potentially hazardous substance +burn pits 2. Scrotal varices 3. Posttraumatic stress disorder 4. Attention deficit hyperactivity disorder 5. Gastroesophageal reflux disease 6. Exposure to potentially hazardous substance 7. Gynecomastia 8. Left knee pain (SNOMED CT [id number]) 9. Cough variant asthma 10. Postconcussion syndrome 11. Low back pain (SNOMED CT [id number]) 12. 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 OF WATER OR OTHER FLUID) Indication: FOR CONSTIPATION Active Non-VA Medications Status 1) Non-VA MULTIVITAMIN/MINERALS CAP/TAB 1 TABLET BY MOUTH ACTIVE 2) Non-VA OMEPRAZOLE 20MG EC CAP 20MG BY MOUTH EVERY MORNING 30 ACTIVE MINUTES BEFORE BREAKFAST Indication: FOR GASTROESOPHAGEAL REFLUX DISEASE 4 Total Medications == REVIEW OF SYMPTOMS == [...] - - - - - - B/P: 132/87 (03/30/2024 08:22) pulse: 60 (03/30/2024 08:22) resp: 16 (03/30/2024 08:22) temp: 97.7 F [36.5 C] (03/30/2024 08:22) Ht: 70 in [177.8 cm] (05/21/2023 13:11) Wgt: 177 lb [80.29 kg] (03/30/2024 08:22) BMI: BMI: 25.4 Exam: - - - - - - - mild distress with prolonged sitting normal gait normla movement of legs mild hypertonicitiy bilat lower spine- no rash, no bruising no CVA tenderness no palpable mass or adenopathy in rigth groin == RECENT LABS == Your recent test results are as follows: Date Procedure CPT Status Case # 03/22/2024 ULTRASOUND ABDOMEN LIMITED [id number] Verified 17 1. No significant change in 1.1 cm hyperechoic liver nodule compatible with hemangioma. 2. No significant change in gallbladder polyps measuring up to 3.8 mm since May 2020. Gallbladder polyp follow-up guidelines (joint guidelines MARTHA, EAES, EFISDS, ESGE): No risk factors for gallbladder malignancy: <6mm: ultrasound at 1, 3 and 5 years. Risk factors for gallbladder malignancy: <6mm: ultrasound at 6 months, 1, 2, 3, 4, 5 years. == ASSESSMENT AND PLAN == Active problems - Computerized Problem List is the source for the followin. Acute on chronic back pain- started around 03/20/24- cannot recall any unusual activity- was on break, wrapping gifts, etc. significant spasm of lower paravertebral muscles- improving a bit now. recommend getting back to using his TENS unit. discussed doing core exercises daily/yoga. defers PT- feels he did for 2 years previosuly. recommend having combo of cyclobenzaprine, lidocaine patches and medrol dose pack for ACUTE back pain- that he shoudl take when develops severe pain. 2. right groin strain- supportive care- suspect piriformis muscle strain. discussed using stationary bike with no resistence == HEALTH MAINTENANCE == Colonoscopy- already had screening- next due February 2033 Abdominal Aortic Aneurysm Screening- n/a never smoked Prostate screening - at age 56 Tetanus: due every 10 years Pneumonia Vacccine: Flu Vaccine: due yearly Covid Vaccine: due yearly == FOLLOW UP == f/u already scheduled in MAY VISIT TYPE: a MODERATE complexity visit where 30 minutes was spent in direct patient care, review of records and documentation. Upcoming Appointments: 05/18/2024 09:30 CWM/ASHVIN/PACJem MEDINA /shweta/ SHELL TRAN D.O. PHYSICIAN Signed: 03/30/2024 09:12 SHELL TRAN [facility] [place] [facility] Mar 22, 2024 03:22 PM LETTERS: LOCAL TITLE: PATIENT LETTER (T) STANDARD TITLE: LETTERS DATE OF NOTE: MAR 22, 2024@15:22 ENTRY DATE: MAR 22, 2024@15:22:07 AUTHOR: SHELL TRAN EXP COSIGNER: URGENCY: STATUS: COMPLETED [facility] Toll Free Number Primary Care Telephone Assistance can be reached at extension [phone] [facility] scheduling can be reached at extension [phone] [facility] scheduling can be reached at ext [phone] SHONDA NAOMI [address], [address] [place] , STABLE benign findings on liver ultrasound- no cause for concern. Dr. Shell Tran (Case 17 COMPLETE) ULTRASOUND ABDOMEN LIMITED (US Detailed) Date Reported: MAR 22, 2024 Report: ECHO EXAM OF ABDOMEN Comparison: Abdominal ultrasound March 17, 2023 and February 26, 2022 and May 29, 2020 REASON FOR STUDY: liver lesion follow-up HISTORY: Reason for Study: liver lesion follow-up FINDINGS: Multiple sonographic images of the right upper quadrant of the abdomen. Liver: 14.8 cm craniocaudad dimension. 1.1 cm right liver well-circumscribed avascular hyperechoic nodule. This previously measured 1.4 cm 2022 and 1.1 cm in 2021 and 1.1 cm May 2020. Antegrade flow in the main portal vein. Gallbladder: 2.1 mm gallbladder wall thickness. No cholelithiasis. Reportedly negative sonographic Portillo sign. Normal gallbladder wall thickness. No significant pericholecystic fluid. No significant change in gallbladder polyps measuring up to 3.8 mm. Biliary tree: 2.7 mm extrahepatic biliary ductal caliber. No significant biliary ductal dilation. Spleen: Maximal dimension of 9.6 cm. Normal size. Ascites: None seen. Other: No other significant findings. Impression: 1. No significant change in 1.1 cm hyperechoic liver nodule compatible with hemangioma. 2. No significant change in gallbladder polyps measuring up to 3.8 mm since May 2020. Sincerely, Your Primary Care Team [facility] [address] [id number] [place] [address] [phone] [facility] [address] [place] [address] [place] [address] [phone] [facility] [address] [facility],[address] [place] [id number] [place] [address] [facility] [place] [facility]
--- OUTSIDE RECORDS SUMMARY | 2024-07-03 00:58 | XMS_ITS | Encounter Summary ---
Author Name [facility] [place] [facility] [place] Address [address] [place] [address] Care Team Providers Care Director Of Surgery Name Role Phone SHELL TRAN Primary Care [...] Name Patient's Relationship to Policy [facility]GAN[facility]AT ION [place] Sep 28, 2020 [id number] ESTELAVIANEYSHONDA VERGARA PATIENT [place] [place] [id number] PREFERRED PROVIDER ORGANIZAT ION (PPO) [facility] [place] July 29, 2022 [id number] [phone] ESTELASHERIF SHONDA PATIENT [facility] PREFERRED PROVIDER ORGANIZAT ION (PPO) [facility] [place] July 29, 2022 [id number] [phone] ESTELAVIANEYSHONDA VERGARA PATIENT [facility]* PREFERRED PROVIDER ORGANIZAT ION (PPO) [facility] [place] July 29, 2022 [id number] [phone] SHONDA BARLOW PATIENT Selected Encounter This section includes the information on record at [place] for the Encounter. Date/Time Encounter Type Encounter Description Reason Provider Source Jul 28, 2023 01:00 PM THERAPEUTIC EXERCISES PHYSICAL THERAPY ICD-10-CM M54.50 Low back pain, unspecified SUKHI NAIDU Chad Encounter Template Text not used by [place] Assessments - Encounter Diagnoses This section includes the primary and secondary diagnoses documented for the Encounter. Date/Time Primary/Secondary Diagnosis Diagnosis Name Provider Source Jul 28, 2023 04:33 PM PRIMARY Low back pain, unspecified KODYSUKHI [facility] Plan of Treatment: Future Appointments (+ 6 months) and Future Tests (+/- 45 days) The Plan of Treatment section includes future care activities for the patient [facility] [place] [facility]. This section includes future appointments and future orders which are active, pending or scheduled. Future Appointments This section includes appointments that were scheduled to occur 6 months from the date of the Encounter, up to a maximum of 20 appointments. The data comes from all [place] treatment facilities. Appointment Date/Time Appointment Type Appointme nt Facility Name August 05, 2023 09:30 AM [facility] August 12, 2023 09[facility]30 AM [facility] Sep 04, 2023 01:00 PM [facility] Nov 17, 2023 09:00 AM [facility] MEDICINE [facility] Social History: Smoking Status (Most current) and Tobacco Use (All prior to encounter date) This section includes the most current, and the historical, smoking and tobacco- related health factors from the [place] facility where the Encounter took place. Current Smoking Status This section includes the most current smoking, or tobacco-related health factor, from the [place] facility where the Encounter took place. Date/Time Current Smoking Status Comment Nishant valderrama Nov 20, 2022 01:00 PM [place]-TOBACCO NEVER USED [facility] Tobacco Use History This section includes a history of the smoking, or tobacco-related health factors, that were collected on or before the date of the Encounter. The data comes from the [place] facility where the Encounter took place. Date/Time Smoking Status/Tobacco Use Comment F acility Sep 05, 2021 01:00 PM VA-TOBACCO NEVER USED [facility] May 10, 2020 09:00 AM VA-TOBACCO NEVER USED [facility] [place] [facility] Jan 07, 2019 10:45 AM VA-TOBACCO NEVER USED [facility] [place] [facility] Jul 24, 2017 12:53 PM LIFETIME NON-TOBACCO USER [facility] [place] Jul 15, 2016 09:35 AM LIFETIME NON-TOBACCO USER [facility] Sep 21, 2012 02:42 PM LIFETIME NON-TOBACCO USER [facility] [place] Encounter Notes: All associated encounter notes This section contains the clinical notes associated to the Encounter. Date/Time Encounter Note(s) Provider Source Jul 28, 2023 12:42 PM PHYSICAL THERAPY C ONSULT: LOCAL TITLE: PHYSICAL THERAPY CONSULT STANDARD TITLE: PHYSICAL THERAPY CONSULT DATE OF NOTE: JUL 28, 2023@12:42 ENTRY DATE: JUL 28, 2023@12:42:24 AUTHOR: SUKHI NAIDU COSIGNER: URGENCY: STATUS: COMPLETED PHYSICAL THERAPY CONSULT Has ADDENDA Initial Evaluation date: Jun Treat Date: Jun Treatment #:eval Treatment time: 60min Diagnosis: Low back pain, unspecified(ICD-10-CM M54.50) Provider: [facility] Treatment Precautions: Patient identified by full name and date of Verbal Consent given for therapist to put hands on patient SUBJECTIVE I feel like I might be walking a little crooked at times. I have been leaning to the right a little more lately which I notice I feel shifted over my right leg. I want to find a way to help out the issue in the right hip and then the stiffness and pain that goes up the mid back going up the paraspinals getting tight and I was having spasms going on in there. I get pain when I do anything stationary. I find comfort with a little bit of movement. Comfort position is offloading the left knee and the right hip by also leaning to the right at the same time. (cinching in on the abdominals/obliques) I just want to figure out how to strengthen things and improve the pain levels. I just started working out again March 1st, I messed up the left knee again, and I stopped going to the gym again as of 2 weeks ago. I have the left knee meniscus tear again (MRI confirmed), nearly exact same spot as last time, tear is adjacent to the surgery from last time. Just had imaging on that not sure the next step. PMH: Chief complaint/ailment/injury: MIKE/Date of onset: ( x ) Gradual ( ) Rapid Since onset: ( x ) Worsening - worse over the past 6mo ( ) Improving ( x ) Staying the same Are your symptoms: ( x ) Constant - when not moving ( ) Intermittent Prior PT care for this condition? ( ) No ( x ) Yes Previous Medical Interventions: ( ) Xray ( ) MRI/CTscan ( x ) Injections - cortizone no benefit noted to lumbar region last time, however noted the left knee responded well with decrease in instability and pain levels since. ( ) Other: C/O: ( x ) Pain: ( x ) ROM: ( ) Strength: ( ) Sensation: Pain rating on 0-10 VNS: Current: 2/10 Average: 3/10 At best: 1.5/10 At worst: 6/10 Location: general activity, prolonged walking. Description of pain: ( x )aching spasms and leading to spasms type pain. Alleviating factors:moving, but not doing to the same thing to long, ( ) Position: Aggravating factors:laying down or being in any position for more than 10min increased pain levels and then gettting up would be worse. 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 due to knee issue. was lifting in th eg again, lower weight overall just prior to the knee injury 2 weeks ago. Baseline function: [x]Independent ADL's/IADL's - Decline in ADL's/IADL's or recreation?: [x]Yes slowed due to the pain. Patient's Goals: 1)get homework plan to work on right hip and the low mid back stiffness. 2) Active problems - Computerized Problem List is the source for the followin. Scrotal varices 2. Posttraumatic stress disorder 3. Attention deficit hyperactivity disorder 4. Gastroesophageal reflux disease 5. Exposure to potentially hazardous substance 6. Gynecomastia 7. Left knee pain (SNOMED CT [id number]) 8. Cough variant asthma 9. Postconcussion syndrome 10. Low back pain (SNOMED CT [id number]) 11. Pain in joint involving shoulder region Medical Screening Questionnaire/RED FLAGS: [x]Recent Trauma left knee []Age (50+) []Hx of Cancer []Fever/chills/night sweats []Unexplained weight loss []Recent infection []Immunosuppression []Night pain []Saddle anesthesia [x]Bowel/bladder dysfunction retention/frequency - varicose veins and cyst and potentially a right inguinal hernia noted by MD at recent visit []LE neurological deficit OBJECTIVE: Posture:weight shifted off the left LE likely secondary to the left Meniscal tear, shifting weight to the right LE and squeezing right gluteal region, likely causing right low back pain and the shift likely increasing stiffness in the lower thoracic region. Lumbar Posture: WNLs:__x_ Increased Lordosis ____ Decreased Lordosis ____ Lateral Shift : Yes: ___to the right likely avoidant to weightbearing structures below level_ Pelvic Symmetry: ASIS:= PSIS:= Iliac Crest:= Functional Mobility:slower initially after sitting, then able but over time gets worse again. Lumbar AROM: NT today due to time Flexion(60-90): Extension(30): L SB(25): R SB(25): L Rot(15-30): R Rot(15-30): Resisted Tests: (_/5) Trunk Flexion : :4-p Trunk Extension : :4-p Trunk Rotation : L:4-p after R:4-p after Hip Flexion (L2-L4): L:4 R:4 Hip Adduction: L:4- R:4- Hip Internal Rotation : L:4- R:4 Hip External Rotation : L:4- R:4 Knee Extension(L2-L4): L:4- R:4 Knee Flexion: L:4 R:4 Ankle Dorsiflexion(L4): L:4 R:4 Ankle Plantarflexion (S1-2) L:4 R:4 Ankle Eversion (S1): L:4 R:4 Great Toe Extension(L5): L:4- R:4 Hip Abduction (L5-S1): L:4-knee pain R:4- Hip Extension(L5-S2): L:3+ R:3+ Range of Motion: Hip WFL Muscle Length/Flexibility: Curtis Test: Left: Normal Limited__min___ Right: Normal Limited___min Concetta's Test: Left: Normal Limited_min____ Right: Normal Limited____mod____ Hamstring (90-90): Left: Normal Limited__25___ Degrees Right: Normal Limited__25 Degrees Mkaeda Test: Left: Normal___x__ Limited Right: Normal___x___ Limited Palpation:ltight Paraspinals left > Right. Joint Mobility Assessment:2/6 PA bilat non painful, Left PA at L2 stiff and painful. Lumbar Special Tests Straight Leg Raise (sn=0.91):R+ Crossed Straight Leg Raise (sp=0.88):- Slump Test (sn=0.84 sp=0.83):- Pelvic Special Tests HALI:+ LAD trial - felt a relief in the hip tension with the distraction Treatment Provided: Patient education was provided for all aspects of care during this clinical encounter. THERAPEUTIC EXERCISE: MINUTES:25 Instruction in therex & issued [employer] HEP:Access Code: [email or web address] URL: [email or web address] Date: 07/28/2023 Prepared by: Sukhi Naidu Exercises - Sidelying Hip Abduction - 3 sets - 10 reps - Prone Hip Extension - 3 sets - 10 reps - Seated Lumbar Flexion Stretch - 10 reps - 10 secs hold - Sidelying IT Band Foam Roll Mobilization - 2min hold - Quadriceps Mobilization with Foam Roll - 2min hold - Downward Dog - 3 x daily - 3 reps - 30 secs hold - Cat-Camel to Child's Pose - 2 x daily - 10 reps - 5secs hold - Supine Lower Trunk Rotation - 2 x daily - 3 sets - 10 reps - 5 secs hold - Supine Piriformis Stretch - 2 x daily - 3 reps - 30 secs hold - Quadruped Hip Extension Kicks - 3 sets - 10 reps - 3 secs hold - Quadruped Fire Hydrant - 3 sets - 10 reps - 3 secs hold - Supine Quad Set - 3-5 x daily - 3 sets - 10 reps - 5 secs hold - Long Sitting Quad Set with Towel Roll Under Heel - 3-5 x daily - 3 sets - 10 reps - 5 secs hold - Active Straight Leg Raise with Quad Set - 3-5 x daily - 3 sets - 10 reps - 3 secs hold - Supine Heel Slide with Strap - 3-5 x daily - 3 sets - 10 reps - 3 secs hold - Supine Knee Flexion Wall Slide - 3-5 x daily - 3 sets - 10 reps - 3 secs hold Highlighted HEP (all above HEP from previous treatment, though overlapping will resume above exercises PRN as refresher) - Seated Quadratus Lumborum Stretch in Chair - 3 x daily - 3 sets - 30 secs hold - Hip Flexor Stretch on Step - 3 x daily - 3 sets - 30 secs hold - Supine Hip Adduction Isometric with Ball - 5 sets - 5 reps - 5secs hold - Hooklying Clamshell with Resistance - 5 sets - 5 reps - 5 secs hold Assessment:Patient presents to Physical Therapy today with reports C/O:right low back and hip pain, and lower thoracic stiffness. Signs/sx consistent w/: right SI joint dysfunction, possibly secondary to the weight shift due to the left knee meniscus injury and thus increase stressors on the lumbar region. Overall diagnosis mechanical low back pain secondary to deficits in flexibility and strength, and injuries to lower structures resulting in compensational movement patterns leading to increased joint and muscle restrictions/limitations. Compounding the situation is a recently found right side inguinal hernia, this pain could be limiting ability to discern right hip pain, right SI pain and hernia pains. Will continue to monitor going forward with POC. Physical Therapy Problem List [x]Increased Pain [x]Decreased ADL's/IADL's [x]Impaired gait & mobility [x]Impaired balance [x]Reduced muscle performance/strength [x]Decreased soft tissue mobility/flexibility [x]Decreased ROM [x]Impaired joint mobility/integrity [x]Postural deficits [x]Knowledge deficit for home exercises Rehab Potential: []Good []Fair [x]Poor potential Barriers: chronicity of symptoms, multiple comorbidities Psychosocial flags: mental health dx, entrenched/unhelpful beliefs about pain, Goals, within: []2-4 wks [x]4-6wks []8wks [x]Increase walking/standing tolerance to 60 minutes in order to Ambulate community distances independently with pain < 2/10. [x]Return to recreational activities at [facility], symptom free. [x]Pt will report no [...] with PT. PLAN: Pt to be seen 1x/week for 4 - 6 weeks POC to include: []Low impact cardio: []Nustep []Recumbent bike []Recumbent elliptical []TM [x]Manual: [x]STM/DTM []METs/SCS [x]IASTM [x]Joint mobilizations [x]Therex: [x]Progressive Core [x]Progressive LQ [x]Lumbar flex [x]LQ flex [x] Foam rolling [x]Neuro Re-education: []Static [x]Dynamic []Dual-Task [x]Education: []Posture []Ergonomics [x]Bodymechanics []Self-care strategies [] PNE [x]Modalities(PRN): [x]Heat/Ice []Estim/Tens []Mechanical traction []K-tape [] Biofreeze Proposed Interventions: NV 5min MHP warm up, STM/DTM to the paraspinals PRN, [PA glides, straight(bilat) lumbar] + as tolerated unilateral right L2-3. Review and progress gluteal and piriformis stretches as able. Re/test at next F/u with PT Lumbar AROM: Flexion(60-90): Extension(30): L SB(25): R SB(25): L Rot(15-30): R Rot(15-30): Pelvic Special Tests HALI:+Distraction test (sp=0.81): Thigh Thrust (sn=0.88): Compression test(sn=0.69 sp=0.69): Sacral Thrust(sp=0.75): Gaenslen's Test(sp=0.71): Three or more positive pain provocation SIJ tests listed above have sn=0.91 and sp=78 which can be interpreted as: if three or more pain provocation tests are found, there is a high probability that sacroiliac joint pain is present. /dyan NAIDU PT, MAUREEN PHYSICAL THERAPIST Signed: 07/29/2023 12:40 08/12/2023 ADDENDUM STATUS: COMPLETED Special testing for SI joint performed by primary PT today. Pelvic Special Tests HALI:+ slight pain noted more stretch in the hip. Distraction test (sp=0.81): - Thigh Thrust (sn=0.88):- Compression test(sn=0.69 sp=0.69):- (noted slight relief /dyan NAIDU PT, DPT PHYSICAL THERAPIST Signed: 08/12/2023 11:20 SUKHI NAIDU [facility] [place] [facility]
--- OUTSIDE RECORDS SUMMARY | 2024-07-03 00:58 | XMS_ITS | Continuity of Care Document ---
Author Name [facility] Organization [facility] Care Team Providers Care Talent Assistant Name Role Phone [facility] Unavailable Unavailable Problems Combined list of problems from Department of Defense and Veterans Affairs facilities. It does not include entries that were removed or entered in error. Problem Status Onset Date Problem Type Date of Resolution Comments Source Attention deficit hyperactivity disorder Active Condition [facility] Cough variant asthma Active [facility] Exposure to potentially hazardous substance Active Condition [facility] Exposure to potentially hazardous substance Active Condition Nov 17, 2023 Entered By: YURI TRAN Comment: +burn pits [facility] Gastroesophageal reflux disease Active Condition [facility] Gynecomastia Active Condition [facility] Left knee pain (SNOMED CT [id number]) Active Condition [facility] Low back pain (SNOMED CT [id number]) Active Condition [facility] Pain in joint involving shoulder region (ICD-9-CM 719.41) Active Condition [facility] Postconcussion syndrome Active Condition [facility] Posttraumatic stress disorder Active Condition [facility] Scrotal varices Active Condition [facility] Diagnosis: ICD-10-CM Z77.29 Contact with and exposure to other hazardous substances Active Diagnosis [facility] Diagnosis: ICD-10-CM M54.50 Low back pain, unspecified Active Diagnosis [facility] Diagnosis: ICD-10-CM F43.10 Post-traumatic stress disorder, unspecified Active Diagnosis [facility] Diagnosis: ICD-10-CM M25.562 Pain in left knee Active Diagnosis [facility] Diagnosis: ICD-10-CM I86.8 Varicose veins of other specified sites Active Diagnosis [facility] Diagnosis: ICD-10-CM N50.812 Left testicular pain Active Diagnosis [facility] Medications Combined list of outpatient medications from Department of Defense and Veterans Affairs facilities.Medications provided include 1) outpatient medications from the last 15 months, and 2) patient-reported medications. Medication Details Route Status Patient Instructions Prescription Expires Prescription Number Last Dispense Date Ordering Provider Order Date Order Qty Source CYCLOBENZAP RINE HCL 10MG TAB TAKE ONE TABLET BY MOUTH TWICE DAILY NEEDED USE FOR 5 DAYS DURING ACUTE BACK PAIN EPISODES ORAL ACTIVE 03/31/2025 [id number] FURCOLO,T CHON [facility] LIDOCAINE 5% PATCH APPLY 1 PATCH TOPICALL Y ONCE DAILY NEEDED FOR ACUTE BACK PAIN (LEAVE PATCH ON FOR 12 HOURS, THEN REMOVE PATCH) TOPICA L ACTIVE 03/31/2025 [id number] FURCOLO,T CHON 2023 30 [facility] METHYLPREDN ISOLONE 4MG TAB TAKE SIX TABLETS BY MOUTH ONCE DAILY FOR 1 DAY, THEN TAKE FIVE TABLETS ONCE DAILY FOR 1 DAY, THEN TAKE FOUR TABLETS ONCE DAILY FOR 1 DAY, THEN TAKE THREE TABLETS ONCE DAILY FOR 1 DAY, THEN TAKE TWO TABLETS ONCE DAILY FOR 1 DAY, THEN TAKE ONE TABLET ONCE DAILY FOR 1 DAY ORAL 04/29/2024 [id number] FURCOLO,T CHON 2024 21 [facility] MULTIVITAMI NS W/MINERALS TAB TAKE ONE TABLET BY MOUTH ORAL ACTIVE MANDO EDWARDS 2022 [facility] OMEPRAZOLE 20MG CAP,EC TAKE ONE CAPSULE BY MOUTH EVERY MORNING 30 MINUTES BEFORE BREAKFAS T ORAL ACTIVE 06/17/2025 [id number] FURCOLO,T CHON 2024 30 [facility] OMEPRAZOLE 20MG CAP,EC TAKE ONE CAPSULE BY MOUTH EVERY MORNING 30 MINUTES BEFORE BREAKFAS T ORAL DISCONT INUED BY PROVIDE R 05/21/2024 [id number] LANIE WILKERSON JAWED 2023 90 [facility] PROPRANOLOL HCL 60MG CAP,SA TAKE ONE CAPSULE BY MOUTH ONCE DAILY FOR MIGRAINE PREVENTI ON ORAL ACTIVE 06/17/2025 [id number] FURCOLO,T CHON 2024 30 [facility] PSYLLIUM PWDR,ORAL TAKE 2 TEASPOON FULS BY MOUTH ONCE DAILY FOR CONSTIPA TION (MIX WITH AT LEAST 8OZ. OF WATER OR OTHER FLUID) ORAL 05/21/2024 [id number] LANIE WILKERSON JAWED 2023 390 [facility] Immunizations Combined list of available immunizations from the Department of Defense and Veterans Affairs facilities. Immunization Series Date Given Administered By Site Reaction Lot Number CVX Code Drug [employer]r Status Comments Source INFLUENZA, UNSPECIFIED FORMULATION 2022 88 complet ed [facility] INFLUENZA, UNSPECIFIED FORMULATION 2021 88 complet ed [facility] COVID-19 (MODERNA), MRNA, LNP-S, PF, 100 MCG OR 50 MCG DOSE 3 2020 207 complet ed MOD; [id number]; 2 [facility] COVID-19 (MODERNA), MRNA, LNP-S, PF, 100 MCG/0.5 ML DOSE 2 2020 207 complet ed [facility] COVID-19 (MODERNA), MRNA, LNP-S, PF, 100 MCG/0.5 ML DOSE 1 2020 207 complet ed [facility] INFLUENZA, UNSPECIFIED FORMULATION 2019 88 complet ed [facility] INFLUENZA, INJECTABLE, QUADRIVALENT, PRESERVATIVE FREE 2018 150 complet ed Site: Right Deltoid [facility] TDAP 2018 115 complet ed Site: Right Deltoid [facility] INFLUENZA, SEASONAL, INJECTABLE 2017 141 complet ed [facility] INFLUENZA, SEASONAL, INJECTABLE 2016 141 complet ed [facility] FLU,3 YRS (HISTORICAL) 2015 88 complet ed [facility] TD(ADULT) UNSPECIFIED FORMULATION 2009 139 complet ed [facility] HEP B, ADULT 3 2001 43 complet ed [facility] HEP B, ADULT 2 2000 43 complet ed [facility] HEP B, ADULT 1 2000 43 complet ed [facility] Results Combined list of recent chemistry, hematology and other laboratory results from Department of Defense and Veterans Affairs, ranging from 15 months to all on record, depending upon the facility. Order Name Results Value Reference Range Date Interpretation Specimen Comments Source LYME SEROLOGY PANEL BORRELIA BURGDORFER I AB.IGG AND IGM WITH REFLEX TO IMMUNOASSA Y PANEL - SERUM OR PLASMA Negative 06/17 Specimen Type: SERUM Comment: The LYME SEROLOGY PANEL was performed using the FDA-approve d Carter MENDEZ Borrelia burdorferi modified two-tier test system. This modified methodology uses a second EIA in place of a western immunoblot assay, which the FDA has determined is substantia lly equivalent to or better than standard two-tier testing using western blot. Supplementa l testing with a second EIA meets CDC guidelines for Lyme disease testing. Performance characteris tics of the panel were validated at the [facility]. Results are considered positive only if the initial screening EIA is positive or equivocal, and either or both supplementa l EIAs (for IgM and IgG) are positive. Diagnosis of Lyme disease should not be based solely on laboratory results. Clinical and exposure history must be considered. Positive antibody results reflect prior immunologic exposure, and do not necessarily indicate active infection. False positive results are possible in patients with other spirochetal infections, infectious mononucleos is, and connective tissue disorders. Negative results do not exclude B. burgdorferi infection. Only 10-40% of patients with erythema migrans alone have detectable antibodies. False negative results are possible, if specimens are drawn too soon after infection before an antibody response. Antibody induction may be aborted by early antibiotic therapy. Results in immunosuppr essed individuals should be interpreted with caution. If Lyme disease is strongly suspected, but antibody was not detected, a second specimen collected about 2-4 weeks after the first should be tested. This test is NOT for use in screening individuals without signs, symptoms or exposure history. Physicians should report all cases of Lyme disease to their state and local health departments , if applicable. Ordering Provider: YURI TRAN Report Released Date/Time: Jun 16, 2024 03:53 PM Reporting Lab: [facility] [address] [facility] [address] Performing Lab: [facility] [address] [facility] [address] [facility] LYME SEROLOGY PANEL BORRELIA BURGDORFER I AB [INTERPRET ATION] IN SERUM BY IA.MTTT Negative 06/17 Specimen Type: SERUM Comment: The LYME SEROLOGY PANEL was performed using the FDA-approve d Carter MENDEZ Borrelia burdorferi modified two-tier test system. This modified methodology uses a second EIA in place of a western immunoblot assay, which the FDA has determined is substantia lly equivalent to or better than standard two-tier testing using western blot. Supplementa l testing with a second EIA meets CDC guidelines for Lyme disease testing. Performance characteris tics of the panel were validated at the [facility]. Results are considered positive only if the initial screening EIA is positive or equivocal, and either or both supplementa l EIAs (for IgM and IgG) are positive. Diagnosis of Lyme disease should not be based solely on laboratory results. Clinical and exposure history must be considered. Positive antibody results reflect prior immunologic exposure, and do not necessarily indicate active infection. False positive results are possible in patients with other spirochetal infections, infectious mononucleos is, and connective tissue disorders. Negative results do not exclude B. burgdorferi infection. Only 10-40% of patients with erythema migrans alone have detectable antibodies. False negative results are possible, if specimens are drawn too soon after infection before an antibody response. Antibody induction may be aborted by early antibiotic therapy. Results in immunosuppr essed individuals should be interpreted with caution. If Lyme disease is strongly suspected, but antibody was not detected, a second specimen collected about 2-4 weeks after the first should be tested. This test is NOT for use in screening individuals without signs, symptoms or exposure history. Physicians should report all cases of Lyme disease to their state and local health departments , if applicable. Ordering Provider: YURI TRAN Report Released Date/Time: Jun 16, 2024 03:53 PM Reporting Lab: [facility] [address] [facility] [address] Performing Lab: [facility] [address] [facility] [address] [facility] ANAPLASM A AND EHRLICHI A AB PANEL EHRLICHIA CHAFFEENSI S IGG AB [PRESENCE] IN SERUM <1:64 06/17 Specimen Type: SERUM Comment: REFERENCE RANGE: <1:64 REFERENCE RANGE: <1:20 Antibody Not Detected Ehrlichia chaffeenis has been identified as the causative agent of Human Monocytic Ehrlichiosi s (HME). Infected individuals produce specific antibodies to E. chaffeensis that can be detected by an immuno- fluorescent antibody (IFA) test. Single IgG IFA titers of 1:64 or greater indicate exposure to E. chaffeensis . A four-fold rise in IgG titers between acute and convalescen t samples and/or the presence of IgM antibody against E. chaffeensis suggest recent or current infection. This test was developed and its analytical performance characteris tics have been determined by [email or web address], [place], [place]. It has not been cleared or approved by the U.S. Food and Drug Administrat ion. This assay has been validated pursuant to the CLIA regulations and is used for clinical purposes. REFERENCE RANGE: <1:64 REFERENCE RANGE: <1:20 Antibody Not Detected Anaplasma phagocytoph ilum is the tick-borne agent causing Human Granulocyti c Ehrlichiosi s (HGE). HGE is distinct and separate from Human Monocytic Ehrlichiosi s (HME), caused by Ehrlichia chaffeensis . Serologic crossreacti vity between A. phagocyto- philum and E. chaffeensis is minimal (5-15%). This test was developed and its analytical performance characteris tics have been determined by [email or web address] It has not been cleared or approved by the U.S. Food and Drug Administrat ion. This assay has been validated pursuant to the CLIA regulations and is used for clinical purposes. Test Performed by [facility], [email or web address], [address] [place], [place] Fish Ramirez M.D., Ph.D., Director of Laboratorie s , CLIA [id number] TEST PERFORMED AT: , Ordering Provider: YURI TRAN Report Released Date/Time: Jun 16, 2024 03:59 PM Reporting Lab: [facility] [address] [facility] [address] Performing Lab: [facility] [address] [address] [facility] ANAPLASM A AND EHRLICHI A AB PANEL EHRLICHIA CHAFFEENSI S IGM AB [PRESENCE] IN SERUM <1:20 06/17 Specimen Type: SERUM Comment: REFERENCE RANGE: <1:64 REFERENCE RANGE: <1:20 Antibody Not Detected Ehrlichia chaffeenis has been identified as the causative agent of Human Monocytic Ehrlichiosi s (HME). Infected individuals produce specific antibodies to E. chaffeensis that can be detected by an immuno- fluorescent antibody (IFA) test. Single IgG IFA titers of 1:64 or greater indicate exposure to E. chaffeensis . A four-fold rise in IgG titers between acute and convalescen t samples and/or the presence of IgM antibody against E. chaffeensis suggest recent or current infection. This test was developed and its analytical performance characteris tics have been determined by [email or web address] It has not been cleared or approved by the U.S. Food and Drug Administrat ion. This assay has been validated pursuant to the CLIA regulations and is used for clinical purposes. REFERENCE RANGE: <1:64 REFERENCE RANGE: <1:20 Antibody Not Detected Anaplasma phagocytoph ilum is the tick-borne agent causing Human Granulocyti c Ehrlichiosi s (HGE). HGE is distinct and separate from Human Monocytic Ehrlichiosi s (HME), caused by Ehrlichia chaffeensis . Serologic crossreacti vity between A. phagocyto- philum and E. chaffeensis is minimal (5-15%). This test was developed and its analytical performance characteris tics have been determined by [employer] [place], [place]. It has not been cleared or approved by the U.S. Food and Drug Administrat ion. This assay has been validated pursuant to the CLIA regulations and is used for clinical purposes. Test Performed by [facility], [facility], [address] [place] [address] Fish Ramirez M.D., Ph.D., Director of Laboratorie s , CLIA [id number] TEST PERFORMED AT: , Ordering Provider: YURI TRAN Report Released Date/Time: Jun 16, 2024 03:59 PM Reporting Lab: [facility] [address] [facility] [address] Performing Lab: [facility] [address] [address] [facility] ANAPLASM A AND EHRLICHI A AB PANEL ANAPLASMA PHAGOCYTOP HILUM IGG AB [TITER] IN SERUM BY IMMUNOFLUO RESCENCE <1:64 06/17 Specimen Type: SERUM Comment: REFERENCE RANGE: <1:64 REFERENCE RANGE: <1:20 Antibody Not Detected Ehrlichia chaffeenis has been identified as the causative agent of Human Monocytic Ehrlichiosi s (HME). Infected individuals produce specific antibodies to E. chaffeensis that can be detected by an immuno- fluorescent antibody (IFA) test. Single IgG IFA titers of 1:64 or greater indicate exposure to E. chaffeensis . A four-fold rise in IgG titers between acute and convalescen t samples and/or the presence of IgM antibody against E. chaffeensis suggest recent or current infection. This test was developed and its analytical performance characteris tics have been determined by [facility] [place], [place]. It has not been cleared or approved by the U.S. Food and Drug Administrat ion. This assay has been validated pursuant to the CLIA regulations and is used for clinical purposes. REFERENCE RANGE: <1:64 REFERENCE RANGE: <1:20 Antibody Not Detected Anaplasma phagocytoph ilum is the tick-borne agent causing Human Granulocyti c Ehrlichiosi s (HGE). HGE is distinct and separate from Human Monocytic Ehrlichiosi s (HME), caused by Ehrlichia chaffeensis . Serologic crossreacti vity between A. phagocyto- philum and E. chaffeensis is minimal (5-15%). This test was developed and its analytical performance characteris tics have been determined by [employer] [place], [place]. It has not been cleared or approved by the U.S. Food and Drug Administrat ion. This assay has been validated pursuant to the CLIA regulations and is used for clinical purposes. Test Performed by [facility], [facility], [address] [place] [address] Fish Ramirez M.D., Ph.D., Director of Laboratorie s , CLIA [id number] TEST PERFORMED AT: , Ordering Provider: YURI TRAN Report Released Date/Time: Jun 16, 2024 03:59 PM Reporting Lab: [facility] [address] [facility] [address] Performing Lab: [facility] [address] [address] [facility] ANAPLASM A AND EHRLICHI A AB PANEL ANAPLASMA PHAGOCYTOP HILUM IGM AB [TITER] IN SERUM BY IMMUNOFLUO RESCENCE <1:20 06/17 Specimen Type: SERUM Comment: REFERENCE RANGE: <1:64 REFERENCE RANGE: <1:20 Antibody Not Detected Ehrlichia chaffeenis has been identified as the causative agent of Human Monocytic Ehrlichiosi s (HME). Infected individuals produce specific antibodies to E. chaffeensis that can be detected by an immuno- fluorescent antibody (IFA) test. Single IgG IFA titers of 1:64 or greater indicate exposure to E. chaffeensis . A four-fold rise in IgG titers between acute and convalescen t samples and/or the presence of IgM antibody against E. chaffeensis suggest recent or current infection. This test was developed and its analytical performance characteris tics have been determined by [email or web address] It has not been cleared or approved by the U.S. Food and Drug Administrat ion. This assay has been validated pursuant to the CLIA regulations and is used for clinical purposes. REFERENCE RANGE: <1:64 REFERENCE RANGE: <1:20 Antibody Not Detected Anaplasma phagocytoph ilum is the tick-borne agent causing Human Granulocyti c Ehrlichiosi s (HGE). HGE is distinct and separate from Human Monocytic Ehrlichiosi s (HME), caused by Ehrlichia chaffeensis . Serologic crossreacti vity between A. phagocyto- philum and E. chaffeensis is minimal (5-15%). This test was developed and its analytical performance characteris tics have been determined by [employer] [place]. It has not been cleared or approved by the U.S. Food and Drug Administrat ion. This assay has been validated pursuant to the CLIA regulations and is used for clinical purposes. Test Performed by [facility], [email or web address], [address] [place] [address] Fish Ramirez M.D., Ph.D., Director of Laboratorie s , CLIA [id number] TEST PERFORMED AT: , Ordering Provider: YURI TRAN Report Released Date/Time: Jun 16, 2024 03:59 PM Reporting Lab: [facility] [address] [facility] [address] Performing Lab: [facility] [address] [address] [facility] ANAPLASM A AND EHRLICHI A AB PANEL EHRLICHIA CHAFFEENSI S AB INTER SEE NOTE 06/17 Specimen Type: SERUM Comment: REFERENCE RANGE: <1:64 REFERENCE RANGE: <1:20 Antibody Not Detected Ehrlichia chaffeenis has been identified as the causative agent of Human Monocytic Ehrlichiosi s (HME). Infected individuals produce specific antibodies to E. chaffeensis that can be detected by an immuno- fluorescent antibody (IFA) test. Single IgG IFA titers of 1:64 or greater indicate exposure to E. chaffeensis . A four-fold rise in IgG titers between acute and convalescen t samples and/or the presence of IgM antibody against E. chaffeensis suggest recent or current infection. This test was developed and its analytical performance characteris tics have been determined by [email or web address] It has not been cleared or approved by the U.S. Food and Drug Administrat ion. This assay has been validated pursuant to the CLIA regulations and is used for clinical purposes. REFERENCE RANGE: <1:64 REFERENCE RANGE: <1:20 Antibody Not Detected Anaplasma phagocytoph ilum is the tick-borne agent causing Human Granulocyti c Ehrlichiosi s (HGE). HGE is distinct and separate from Human Monocytic Ehrlichiosi s (HME), caused by Ehrlichia chaffeensis . Serologic crossreacti vity between A. phagocyto- philum and E. chaffeensis is minimal (5-15%). This test was developed and its analytical performance characteris tics have been determined by [email or web address]. It has not been cleared or approved by the U.S. Food and Drug Administrat ion. This assay has been validated pursuant to the CLIA regulations and is used for clinical purposes. Test Performed by [facility], [employer] [place], [address] [place] [address] Fish Ramirez M.D., Ph.D., Director of Laboratorie s , CLIA [id number] TEST PERFORMED AT: , Ordering Provider: YURI TRAN Report Released Date/Time: Jun 16, 2024 03:59 PM Reporting Lab: [facility] [address] [facility] [address] Performing Lab: [facility] [address] [facility], [address] [facility] [address] [facility] ANAPLASM A AND EHRLICHI A AB PANEL A. phagocytop hilum inter SEE NOTE 06/17 Specimen Type: SERUM Comment: REFERENCE RANGE: <1:64 REFERENCE RANGE: <1:20 Antibody Not Detected Ehrlichia chaffeenis has been identified as the causative agent of Human Monocytic Ehrlichiosi s (HME). Infected individuals produce specific antibodies to E. chaffeensis that can be detected by an immuno- fluorescent antibody (IFA) test. Single IgG IFA titers of 1:64 or greater indicate exposure to E. chaffeensis . A four-fold rise in IgG titers between acute and convalescen t samples and/or the presence of IgM antibody against E. chaffeensis suggest recent or current infection. This test was developed and its analytical performance characteris tics have been determined by [facility]. It has not been cleared or approved by the U.S. Food and Drug Administrat ion. This assay has been validated pursuant to the CLIA regulations and is used for clinical purposes. REFERENCE RANGE: <1:64 REFERENCE RANGE: <1:20 Antibody Not Detected Anaplasma phagocytoph ilum is the tick-borne agent causing Human Granulocyti c Ehrlichiosi s (HGE). HGE is distinct and separate from Human Monocytic Ehrlichiosi s (HME), caused by Ehrlichia chaffeensis . Serologic crossreacti vity between A. phagocyto- philum and E. chaffeensis is minimal (5-15%). This test was developed and its analytical performance characteris tics have been determined by [facility]. It has not been cleared or approved by the U.S. Food and Drug Administrat ion. This assay has been validated pursuant to the CLIA regulations and is used for clinical purposes. Test Performed by [facility], [employer] [place], [address] [place], [place] Fish Ramirez M.D., Ph.D., Director of Laboratorie s , CLIA [id number] TEST PERFORMED AT: , Ordering Provider: YURI TRAN Report Released Date/Time: Jun 16, 2024 03:59 PM Reporting Lab: [facility] [address] [facility] [address] Performing Lab: [facility] [address] [facility], [address] [place] [address] [facility] TESTOSTE MIRACLE, TOTAL (WHV) TESTOSTERO NE [MASS/VOLU ME] IN SERUM OR PLASMA 907.09 ng/dL 220.00 - 892.00 06/17 H Specimen Type: SERUM No comment entered. Ordering Provider: YURI TRAN Report Released Date/Time: Jun 16, 2024 04:10 PM Reporting Lab: [facility] [address] [facility] [address] Performing Lab: [facility] [address] [facility] [address] [facility] SED RATE, AUTOMATE D ERYTHROCYT E SEDIMENTAT ION RATE BY WESTERGREN METHOD <1mm/h 0 - 15 06/17 Specimen Type: BLOOD No comment entered. Ordering Provider: YURI TRAN Report Released Date/Time: Jun 16, 2024 03:53 PM Reporting Lab: [facility] [place] [facility] [address] [facility] [address] Performing Lab: [facility] [place] [facility] [address] [facility] [address] [facility] BASIC METABOLI C PANEL (fasting ) UREA NITROGEN [MASS/VOLU ME] IN SERUM OR PLASMA 11 mg/dL 7 - 25 06/17 Specimen Type: SERUM No comment entered. Ordering Provider: YURI TRAN Report Released Date/Time: Jun 16, 2024 03:53 PM Reporting Lab: [facility] [place] [facility] [address] [facility] [address] Performing Lab: [facility] [place] [facility] [address] [facility] [address] [facility] [place] [facility] BASIC METABOLI C PANEL (fasting ) GLUCOSE [MASS/VOLU ME] IN SERUM OR PLASMA 86 mg/dL 65 - 100 06/17 Specimen Type: SERUM No comment entered. Ordering Provider: YURI TRAN Report Released Date/Time: Jun 16, 2024 03:53 PM Reporting Lab: [facility] [address] [address] Performing Lab: [address] [address] [facility] BASIC METABOLI C PANEL (fasting ) SODIUM [MOLES/VOL UME] IN SERUM OR PLASMA 140 mmol/L 135 - 145 06/17 Specimen Type: SERUM No comment entered. Ordering Provider: YURI TRAN Report Released Date/Time: Jun 16, 2024 03:53 PM Reporting Lab: [address] [address] Performing Lab: [address] [address] [facility] BASIC METABOLI C PANEL (fasting ) POTASSIUM [MOLES/VOL UME] IN SERUM OR PLASMA 5.3 mmol/L 3.5 - 5.0 06/17 H Specimen Type: SERUM No comment entered. Ordering Provider: YURI TRAN Report Released Date/Time: Jun 16, 2024 03:53 PM Reporting Lab: [facility] [address] [address] Performing Lab: [facility] [address] [address] [facility] BASIC METABOLI C PANEL (fasting ) CHLORIDE [MOLES/VOL UME] IN SERUM OR PLASMA 105 mmol/L 100 - 110 06/17 Specimen Type: SERUM No comment entered. Ordering Provider: YURI TRAN Report Released Date/Time: Jun 16, 2024 03:53 PM Reporting Lab: [address] [address] Performing Lab: [facility] [address] [facility] [address] [facility] BASIC METABOLI C PANEL (fasting ) CARBON DIOXIDE, TOTAL [MOLES/VOL UME] IN SERUM OR PLASMA 29 meq/L 20 - 30 06/17 Specimen Type: SERUM No comment entered. Ordering Provider: YURI TRAN Report Released Date/Time: Jun 16, 2024 03:53 PM Reporting Lab: [facility] [address] Performing Lab: [facility] [address] [address] [facility] BASIC METABOLI C PANEL (fasting ) CALCIUM [MASS/VOLU ME] IN SERUM OR PLASMA 10.5 mg/dL 8.5 - 10.2 06/17 H Specimen Type: SERUM No comment entered. Ordering Provider: YURI TRAN Report Released Date/Time: Jun 16, 2024 03:53 PM Reporting Lab: [facility] [address] [address] Performing Lab: [facility] [address] [address] [facility] BASIC METABOLI C PANEL (fasting ) CREATININE [MASS/VOLU ME] IN SERUM OR PLASMA 1.00 mg/dL 0.50 - 1.40 06/17 Specimen Type: SERUM No comment entered. Ordering Provider: YURI TRAN Report Released Date/Time: Jun 16, 2024 03:53 PM Reporting Lab: [facility] [address] Performing Lab: [facility] [address] [facility] BASIC METABOLI C PANEL (fasting ) GLOMERULAR FILTRATION RATE/1.73 SQ M.PREDICTE D [VOLUME RATE/AREA] IN SERUM, PLASMA OR BLOOD BY CREATININE -BASED FORMULA (CKD-EPI 2020) >90mL/mi n 60 06/17 Specimen Type: SERUM No comment entered. Ordering Provider: YURI TRAN Report Released Date/Time: Jun 16, 2024 03:53 PM Reporting Lab: [facility] [address] [facility] [address] Performing Lab: [facility] [address] [facility] [address] [facility] CBC LEUKOCYTES [#/VOLUME] IN BLOOD BY AUTOMATED COUNT 4.03 10*3/uL 4.50 - 11.00 06/17 L Specimen Type: BLOOD No comment entered. Ordering Provider: YURI TRAN Report Released Date/Time: Jun 16, 2024 03:53 PM Reporting Lab: [facility] [address] [facility] [address] Performing Lab: [facility] [place] [address] [address] [facility] [facility] CBC ERYTHROCYT ES [#/VOLUME] IN BLOOD BY AUTOMATED COUNT 5.18 10*6/uL 4.23 - 5.66 06/17 Specimen Type: BLOOD No comment entered. Ordering Provider: YURI TRAN Report Released Date/Time: Jun 16, 2024 03:53 PM Reporting Lab: [facility] [place] [facility] [address] [facility] [address] Performing Lab: [facility] [place] [address] [address] [facility] [place] [facility] CBC HEMOGLOBIN [MASS/VOLU ME] IN BLOOD 15.6 g/dL 12.8 - 17 06/17 Specimen Type: BLOOD No comment entered. Ordering Provider: YURI TRAN Report Released Date/Time: Jun 16, 2024 03:53 PM Reporting Lab: [facility] [place] [facility] [address] [facility] [address] Performing Lab: [facility] [place] [address] [address] [facility] [place] [facility] CBC HEMATOCRIT [VOLUME FRACTION] OF BLOOD BY AUTOMATED COUNT 45.8 39.2 - 50.4 06/17 Specimen Type: BLOOD No comment entered. Ordering Provider: YURI TRAN Report Released Date/Time: Jun 16, 2024 03:53 PM Reporting Lab: [facility] [place] [facility] [address] [facility] [address] Performing Lab: [facility] [place] [facility] [address] [facility] [address] [facility] [facility] CBC MCV [ENTITIC VOLUME] BY AUTOMATED COUNT 88.4 fL 82 - 99 06/17 Specimen Type: BLOOD No comment entered. Ordering Provider: YURI TRAN Report Released Date/Time: Jun 16, 2024 03:53 PM Reporting Lab: [facility] [place] [facility] [address] [facility] [address] Performing Lab: [facility] [place] [address] [address] [facility] [place] [facility] CBC MCHC [MASS/VOLU ME] BY AUTOMATED COUNT 34.1 g/dL 30.8 - 35.1 06/17 Specimen Type: BLOOD No comment entered. Ordering Provider: YURI TRAN Report Released Date/Time: Jun 16, 2024 03:53 PM Reporting Lab: [facility] [place] [facility] [address] [facility] [address] Performing Lab: [facility] [place] [address] [address] [facility] [place] [facility] CBC PLATELETS [#/VOLUME] IN BLOOD BY AUTOMATED COUNT 196 10*3/uL 140 - 360 06/17 Specimen Type: BLOOD No comment entered. Ordering Provider: YURI TRAN Report Released Date/Time: Jun 16, 2024 03:53 PM Reporting Lab: [facility] [place] [facility] [address] [facility] [address] Performing Lab: [facility] [place] [address] [address] [facility] [place] [facility] CBC ERYTHROCYT E DISTRIBUTI ON WIDTH [RATIO] BY AUTOMATED COUNT 12.2 12.0 - 16.0 06/17 Specimen Type: BLOOD No comment entered. Ordering Provider: YURI TRAN Report Released Date/Time: Jun 16, 2024 03:53 PM Reporting Lab: [address] [address] Performing Lab: [address] [address] [facility] CBC MCH [ENTITIC MASS] BY AUTOMATED COUNT 30.1 pg 26.2 - 32.6 06/17 Specimen Type: BLOOD No comment entered. Ordering Provider: YURI TRAN Report Released Date/Time: Jun 16, 2024 03:53 PM Reporting Lab: [address] [address] Performing Lab: [address] [address] [facility] HEPATITI S Be ANTIBODY (QU) HEPATITIS B VIRUS E AB [PRESENCE] IN SERUM Nonreact michelle 05/21 Specimen Type: SERUM Comment: Reference range: Nonreactive For additional information , please refer to [email or web address] (This link is being provided for information al/ educational purposes only.) Test Performed by [facility], [facility], [address] [place] [address] Fish Ramirez M.D., Ph.D., Director of Laboratorie s , CLIA [id number] TEST PERFORMED AT: , Ordering Provider: SHE WILKERSON Report Released Date/Time: May 02, 2023 11:13 AM Reporting Lab: [address] [address] Performing Lab: [facility] [address] LIPID PANEL FASTING CHOLESTERO L [MASS/VOLU ME] IN SERUM OR PLASMA 164 mg/dL 05/21 Specimen Type: SERUM No comment entered. Ordering Provider: SHE WILKERSON Report Released Date/Time: May 02, 2023 11:13 AM Reporting Lab: [facility] [place] [facility] [address] [facility] [address] Performing Lab: [facility] [place] [facility] [address] [facility] [address] [facility] [place] [facility] LIPID PANEL FASTING TRIGLYCERI DE [MASS/VOLU ME] IN SERUM OR PLASMA 42 mg/dL 0 - 150 05/21 Specimen Type: SERUM No comment entered. Ordering Provider: SHE WILKERSON Report Released Date/Time: May 02, 2023 11:13 AM Reporting Lab: [facility] [place] [address] [address] Performing Lab: [facility] [place] [address] [address] [facility] LIPID PANEL FASTING CHOLESTERO L IN LDL [MASS/VOLU ME] IN SERUM OR PLASMA BY TERRY Guillaume 109 mg/dL 0 - 129 05/21 Specimen Type: SERUM No comment entered. Ordering Provider: SHE WILKERSON Report Released Date/Time: May 02, 2023 11:13 AM Reporting Lab: [facility] [place] [address] [address] Performing Lab[facility] [place] [facility] [address] [facility] [address] [facility] [place] [facility] LIPID PANEL FASTING CHOLESTERO L.TOTAL/CH OLESTEROL IN HDL [MASS RATIO] IN SERUM OR PLASMA 3.5 05/21 Specimen Type: SERUM No comment entered. Ordering Provider: SHE WILKERSON Report Released Date/Time: May 02, 2023 11:13 AM Reporting Lab: [facility] [place] [address] [address] Performing Lab: [facility] [place] [facility] [address] [facility] [address] [facility] LIPID PANEL FASTING CHOLESTERO L IN HDL [MASS/VOLU ME] IN SERUM OR PLASMA 47 mg/dL 40 - 60 05/21 Specimen Type: SERUM No comment entered. Ordering Provider: SHE WILKERSON Report Released Date/Time: May 02, 2023 11:13 AM Reporting Lab: [facility] [place] [facility] [address] [facility] [address] Performing Lab: [facility] [place] [facility] [address] [facility] [address] [facility] [place] [facility] LIVER FUNCTION PROTEIN [MASS/VOLU ME] IN SERUM OR PLASMA 6.7 g/dL 6.0 - 8.3 05/21 Specimen Type: SERUM No comment entered. Ordering Provider: SHE WILKERSON Report Released Date/Time: May 02, 2023 11:13 AM Reporting Lab: [facility] [place] [facility] [address] [facility] [address] Performing Lab: [facility] [place] [facility] [address] [facility] [address] [facility] [place] [facility] LIVER FUNCTION ALBUMIN [MASS/VOLU ME] IN SERUM OR PLASMA 4.1 g/dL 3.5 - 5.0 05/21 Specimen Type: SERUM No comment entered. Ordering Provider: SHE WILKERSON Report Released Date/Time: May 02, 2023 11:13 AM Reporting Lab: [facility] [place] [facility] [address] [facility] [address] Performing Lab: [facility] [place] [facility] [address] [facility] [address] [facility] [place] [facility] LIVER FUNCTION ALKALINE PHOSPHATAS E [ENZYMATIC ACTIVITY/V OLUME] IN SERUM OR PLASMA 49 U/L 40 - 150 05/21 Specimen Type: SERUM No comment entered. Ordering Provider: SEH WILKERSON Report Released Date/Time: May 02, 2023 11:13 AM Reporting Lab: [facility] [place] [facility] [address] [facility] [address] Performing Lab: [facility] [place] [facility] [address] [facility] [address] [facility] [place] [facility] LIVER FUNCTION ASPARTATE AMINOTRANS FERASE [ENZYMATIC ACTIVITY/V OLUME] IN SERUM OR PLASMA 21 U/L 5 - 34 05/21 Specimen Type: SERUM No comment entered. Ordering Provider: SHE WILKERSON Report Released Date/Time: May 02, 2023 11:13 AM Reporting Lab: [facility] [place] [facility] [address] [facility] [address] Performing Lab: [facility] [place] [facility] [address] [facility] [address] [facility] [place] [facility] LIVER FUNCTION ALANINE AMINOTRANS FERASE [ENZYMATIC ACTIVITY/V OLUME] IN SERUM OR PLASMA 15 U/L 05/21 Specimen Type: SERUM No comment entered. Ordering Provider: SHE WILKERSON Report Released Date/Time: May 02, 2023 11:13 AM Reporting Lab: [facility] [place] [facility] [address] [facility] [address] Performing Lab: [facility] [place] [facility] [address] [facility] [address] [facility] [place] [facility] LIVER FUNCTION BILIRUBIN. TOTAL [MASS/VOLU ME] IN SERUM OR PLASMA 0.5 mg/dL 0.2 - 1.2 05/21 Specimen Type: SERUM No comment entered. Ordering Provider: SHE WILKERSON Report Released Date/Time: May 02, 2023 11:13 AM Reporting Lab: [facility] [place] [facility] [address] [facility] [address] Performing Lab: [facility] [place] [facility] [address] [facility] [address] [facility] [place] [facility] BASIC METABOLI C PANEL (fasting ) UREA NITROGEN [MASS/VOLU ME] IN SERUM OR PLASMA 13 mg/dL 7 - 25 05/21 Specimen Type: SERUM No comment entered. Ordering Provider: SHE WILKERSON Report Released Date/Time: May 02, 2023 11:13 AM Reporting Lab: [facility] [place] [facility] [address] [facility] [address] Performing Lab: [facility] [place] [facility] [address] [facility] [address] [facility] [place] [facility] BASIC METABOLI C PANEL (fasting ) GLUCOSE [MASS/VOLU ME] IN SERUM OR PLASMA 93 mg/dL 65 - 100 05/21 Specimen Type: SERUM No comment entered. Ordering Provider: SHE WILKERSON Report Released Date/Time: May 02, 2023 11:13 AM Reporting Lab: [facility] [place] [facility] [address] [facility] [address] Performing Lab: [facility] [place] [address] [address] [facility] [place] [facility] BASIC METABOLI C PANEL (fasting ) SODIUM [MOLES/VOL UME] IN SERUM OR PLASMA 142 mmol/L 135 - 145 05/21 Specimen Type: SERUM No comment entered. Ordering Provider: SHE WILKERSON Report Released Date/Time: May 02, 2023 11:13 AM Reporting Lab: [facility] [place] [facility] [address] [facility] [address] Performing Lab: [facility] [place] [facility] [address] [facility] [address] [facility] [place] [facility] BASIC METABOLI C PANEL (fasting ) POTASSIUM [MOLES/VOL UME] IN SERUM OR PLASMA 3.9 mmol/L 3.5 - 5.0 05/21 Specimen Type: SERUM No comment entered. Ordering Provider: SHE WILKERSON Report Released Date/Time: May 02, 2023 11:13 AM Reporting Lab: [facility] [place] [facility] [address] [facility] [address] Performing Lab: [facility] [place] [facility] [address] [facility] [address] [facility] METABOLI C PANEL (fasting ) CHLORIDE [MOLES/VOL UME] IN SERUM OR PLASMA 107 mmol/L 100 - 110 05/21 Specimen Type: SERUM No comment entered. Ordering Provider: SHE WILKERSON Report Released Date/Time: May 02, 2023 11:13 AM Reporting Lab: [facility] [place] [address] [address] Performing Lab: [facility] [address] [facility] [address] [facility]ITAL[facility] BASIC METABOLI C PANEL (fasting ) CARBON DIOXIDE, TOTAL [MOLES/VOL UME] IN SERUM OR PLASMA 28 meq/L 20 - 30 05/21 Specimen Type: SERUM No comment entered. Ordering Provider: SHE WILKERSON Report Released Date/Time: May 02, 2023 11:13 AM Reporting Lab: [facility] [place] [address] [address] Performing Lab: [facility] [place] [address] [address] [facility] BASIC METABOLI C PANEL (fasting ) CREATININE [MASS/VOLU ME] IN SERUM OR PLASMA 1.07 mg/dL 0.50 - 1.40 05/21 Specimen Type: SERUM No comment entered. Ordering Provider: SHE WILKERSON Report Released Date/Time: May 02, 2023 11:13 AM Reporting Lab: [facility] [place] [facility] [address] [facility] [address] Performing Lab: [facility] [place] [address] [address] [facility] BASIC METABOLI C PANEL (fasting ) GLOMERULAR FILTRATION RATE/1.73 SQ M.PREDICTE D [VOLUME RATE/AREA] IN SERUM, PLASMA OR BLOOD BY CREATININE -BASED FORMULA (CKD-EPI 2020) 88 mL/min 60 05/21 Specimen Type: SERUM No comment entered. Ordering Provider: AHMED,MOHAM MED JAWED Report Released Date/Time: May 02, 2023 11:13 AM Reporting Lab: [facility] [address] [facility] [address] Performing Lab: [facility] [address] [facility] [address] [facility] Vital Signs Combined list of inpatient and outpatient Vital Signs from Department of Defense and Veterans Affairs, ranging from 12 months to all on record, depending upon the facility. Vital Sign Value Date Comments Source SYSTOLIC BLOOD PRESSURE 151 06/17/19 25 15:26:53 [facility] DIASTOLIC BLOOD PRESSURE 99 025 15:26:53 [facility] PULSE OXIMETRY 100 06/16/2024 15:26:53 [facility] WEIGHT 180 06/16/2024 15:26:53 [facility] BMI 26 kg/m2 06/16/2024 15:26:53 [facility] PAIN 3 06/16/2024 15:26:53 [facility] TEMPERATURE 98 06/16/2024 15:26:53 [facility] PULSE 69 06/16/2024 15:26:53 [facility] RESPIRATION 16 06/16/2024 15:26:53 [facility] SYSTOLIC BLOOD PRESSURE 132 03/30/20 24 08:22:04 [facility] DIASTOLIC BLOOD PRESSURE 87 024 08:22:04 [facility] PULSE OXIMETRY 100 03/30/2024 08:22:04 [facility] WEIGHT 177 03/30/2024 08:22:04 [facility] BMI 25 kg/m2 03/30/2024 08:22:04 [facility] PAIN 5 03/30/2024 08:22:04 [facility] TEMPERATURE 97.7 03/30/2024 08:22:04 [facility] PULSE 60 03/30/2024 08:22:04 [facility] RESPIRATION 16 03/30/2024 08:22:04 [facility] SYSTOLIC BLOOD PRESSURE 131 11/17/19 24 09:01:11 [facility] DIASTOLIC BLOOD PRESSURE 81 024 09:01:11 [facility] PULSE OXIMETRY 100 11/17/2023 09:01:11 [facility] WEIGHT 177 11/17/2023 09:01:11 [facility] BMI 25 kg/m2 11/17/2023 09:01:11 [facility] PAIN 4 11/17/2023 09:01:11 [facility] TEMPERATURE 97.5 11/17/2023 09:01:11 [facility] PULSE 58 11/17/2023 09:01:11 [facility] RESPIRATION 16 11/17/2023 09:01:11 [facility] Encounters Combined list of: 1) Encounters from Department of Veterans Affairs facilities going backup to the last 18 months, not all VA inpatient encounters are included; 2) Encounters from the Department of Defense facilities going backup to 280 months. Location Location Details Encounter Type Encounter Number Reason For Visit Attending Provider ADM Date DC Date Status Disposition Source [facility]counter [id number] 01/03 [facility] [id number] 01/07 [facility]counter [id number] 01/13 [facility] [id number] 01/21 [facility] En[facility] [id number] ARI MCCARTY 01/21 [facility] OFF/OP EST MAY X REQ PHY/QHP [id number] Diagnos is: ICD-10- CM N50.812 Left testicu lar pain ERICH MIRAMONTES 01/21 [facility] En[facility] [id number] 01/22 [facility] OFFICE O/P EST LOW 20-29 MIN [id number] Diagnos is: ICD-10- CM I86.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 ERICH MIRAMONTES 01/22 [facility] OFFICE O/P EST LOW 20-29 MIN [id number] Diagnos is: ICD-10- CM M25.562 Pain in left knee FRANK WILKERSON MMED JAWED 01/27 [facility] En[facility] [id number] 03/05 [facility] [id number] 03/07 [facility] [id number] 03/17 [facility] [id number] 04/16 [facility] [id number] 04/16 [facility] En[facility] [id number] 05/07 [facility] OFF[facility] O/P EST MOD 30 MIN [id number] Diagnos is: ICD-10- CM F43.10 Post-tr aumatic stress disorde r, unspeci fied FRANK WILKERSON MMED JAWED 05/21 [facility] En[facility] [id number] 06/25 [facility] THERAPEUTI C EXERCISES [id number] Diagnos is: ICD-10- CM M54.50 Low back pain, unspeci fied REBECA GATES 07/27 [facility] MANUAL THERAPY 1/> REGIONS [id number] Diagnos is: ICD-10- CM M54.50 Low back pain, unspeci fied Nikolay AMIN 08/04 [facility] THERAPEUTI C EXERCISES [id number] Diagnos is: ICD-10- CM M54.50 Low back pain, unspeci fied Nikolay AMININ 08/11 [facility] Encounter [id number] 08/20 [facility] THERAPEUTI C EXERCISES [id number] Diagnos is: ICD-10- CM M54.50 Low back pain, unspeci REBECA Nova 09/03 [facility] [id number] 09/10 [facility] En[facility] [id number] VALENTINA MORIN 09/10 [facility] [id number] 10/06 [facility] [id number] 10/16 [facility] [id number] 10/30 [facility] [facility] OFFICE O/P EST MOD 30 MIN [id number] Diagnos is: ICD-10- CM Z77.29 Contact with and exposur e to other hazardo us substan ryan FURCOLO,TI NA 11/16 [facility] Out[facility] Encounter [id number] 03/04 [facility] O/P EST MOD 30 MIN [id number] Diagnos is: ICD-10- CM M54.50 Low back pain, unspeci fied FURCOLO,TI NA 03/30 [facility] En[facility] [id number] 04/15 [facility] En[facility] [id number] 05/07 [facility] [id number] 05/28 [facility] [id number] 05/31 [facility] Encounter [id number] 06/08 [facility] OFF[facility] O/P EST HI 40 MIN [id number] Diagnos is: ICD-10- CM Z77.29 Contact with and exposur e to other hazardo us substan ryan FURCOLO,TI NA 06/16 [facility] Encounter [id number] DENNIS CHAUDHARY 06/21 [facility] En[facility] [id number] 06/25 [facility] Social History Combined list of available smoking, tobacco, and other social history from Department of Defense and Veterans Affairs facilities. Social History Type [facility] VA-TOBACCO NEVER USED 11/17/2023 [facility] History of tobacco use VA-TOBACCO NEVER USED 11/20/2022 [facility] History of tobacco use VA-TOBACCO NEVER USED 09/05/2021 [facility] [place] History of tobacco use HI-TOBACCO NEVER USED 05/10/2020 [facility] History [facility] tobacco use HI-TOBACCO NEVER USED 01/07/2019 [facility] [place] [facility] History of tobacco use LIFETIME NON-TOBACCO USER 07/24/2017 [facility] [place] [facility] History of tobacco use LIFETIME NON-TOBACCO USER 07/15/2016 [facility] [place] [facility] History of tobacco use LIFETIME NON-TOBACCO USER 09/21/2012 [facility] [place] Plan of Care List of future care activities from Department of Veterans Affairs facilities. Additional future care activities may be listed in the Assessment and Plan section. Date/Time Care Activity Care Activity Detail Facili ty 07/05/2024 AMBULATORY - MEDICINE AMBULATORY - MEDICI NE [facility] [place]
--- OUTSIDE RECORDS SUMMARY | 2024-07-03 00:58 | XMS_ITS | Encounter Summary ---
Author Name [facility] Address [address] [place] [address] Care Team Providers Care Seafood Specialist Name Role Phone SHELL TRAN Primary Care [...] Turner's Name Patient's Relationship to Policy Turner [facility] Sep 28, 2020 [id number] [phone] SHONDA BARLOW PATIENT [employer] [facility] [id number] [phone] PREFERRED PROVIDER ORGANIZAT ION (PPO) [facility] [place] July 29, 2022 [id number] [phone] SHONDA BARLOW PATIENT [facility] PREFERRED PROVIDER ORGANIZAT ION (PPO) [facility] July 29, 2022 [id number] [phone] SHONDA BARLOW PATIENT [facility]* PREFERRED PROVIDER ORGANIZAT ION (PPO) [facility] July 29, 2022 [id number] [phone] SHONDA BARLOW PATIENT Selected Encounter This section includes the information on record at [place] for the Encounter. Date/Time Encounter Type Encounter Description Reason Pro vider Source IHE Encounter Template Text not used by [facility]
--- OUTSIDE RECORDS SUMMARY | 2024-07-03 00:58 | XMS_ITS ---
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 vision change. is having high BP readings. recommend labs - CBC, SED, CRP, BMP. start propranolol 60 mg daily. normal neuro exam. had CT scan at [facility]- no need to re-image anxiety- could be having some anxiety causing somatic issues and nausea/unsteadiness. will see if propranolol is helpful. PTSD- has seen MH in the community GERD- woudl like omeprazole refilled low energy- prev has had testosterone chencked- woudl liek rechecked. sounds like he was considering testosterone when started to have gynecomastia issues. asking for recheck = HEALTH MAINTENANCE = Colonoscopy- already had screening- next due February 2033 Abdominal Aortic Aneurysm Screening- n/a never smoked Prostate screening - at age 56 Tetanus: due every 10 years Pneumonia Vacccine: Flu Vaccine: due yearly Covid Vaccine: due yearly = FOLLOW UP = f/u in 6 mo VISIT TYPE: a HIGH complexity visit where 60 minutes was spent in direct patient care, review of records and documentation. /shweta/ SHELL LANZA D.O. PHYSICIAN Signed: 06/16/2024 16:19 SHELL LANZA [facility] [place] [facility] Jun 16, 2024 03:24 PM PREVENTIVE MEDICINE NURSING NOTE: LOCAL TITLE: CLINICAL REMINDERS/NURSING STANDARD TITLE: PREVENTIVE MEDICINE NURSING NOTE DATE OF NOTE: JUN 16, 2024@15:24 ENTRY DATE: JUN 16, 2024@15:24:45 AUTHOR: CECIL MORALES EXP COSIGNER: URGENCY: STATUS: COMPLETED Suicide Screen: C-SSRS Screening [place] Suicide Severity Rating Scale (C-SSRS) screener 1. Over the past month, have you wished you were or wished you could go to sleep and not wake up? No 2. Over the past month, have you had any actual thoughts of killing yourself? No 3. Over the past month, have you been thinking about how you might do this? Response not required due to responses to other questions. 4. Over the past month, have you had these thoughts and had some intention of acting on them? Response not required due to responses to other questions. 5. Over the past month, have you started to work out or worked out the details of how to kill yourself? Response not required due to responses to other questions. 6. If yes, at any time in the past month did you intend to carry out this plan? Response not required due to responses to other questions. 7. In your lifetime, have you ever done anything, started to do anything, or prepared to do anything to end your life (for example, collected pills, obtained a gun, gave away valuables, went to the roof but didn't jump)? No 8. If YES, was this within the past 3 months? Response not required due to responses to other questions. Depression Screening: Perform PHQ-2 A PHQ-2 screen was performed. The score was 2 which is a negative screen for depression. Over the past two weeks, how often have you been bothered by the following problems? 1. Little interest or pleasure in doing things Several days 2. Feeling down, depressed, or hopeless Several days /shweta/ CECIL MORALES LPN License Practical Nurse Signed: 06/16/2024 15:32 CECIL MORALES CNTRL [facility]SN [facility]
--- OUTSIDE RECORDS SUMMARY | 2024-07-03 00:58 | XMS_ITS ---
Author Organization [facility] Address [address] [place] [address] Care Team Providers Care Field Servicer Name Role Phone Poornima STEVENS, [facility] Primary Care Provider Unavail able Luis Solorio Unavailable [phone] REASON FOR VISIT gerd,change in bowels Problems Problem Type SNOMED Code ICD Code Onset Dates Problem Status W/U Status Risk Notes Problem Gastroesophageal reflux disease (345251139) Gastroesophageal reflux disease (K21.9) Active confirmed Encounters Encounter Location Date Provider Diagnosis [facility] Outpatient [address], [place] [phone] 03/05/2023 Luis Solorio Other hemorrhoids K6 4.8 ; Change in bowel habits R19.4 ; Gastroesophageal reflux disease K21.9 and Hiatal hernia K44.9 Assessments Encounter Date Diagnosis (ICD Code) Assessment Notes Treatment Notes Treatment Clinical Notes Section Notes 03/05/2023 Other hemorrhoids (ICD-10 - K64.8) 03/05/2023 Change in bowel habits (ICD-10 - R19.4) 03/05/2023 Gastroesophageal reflux disease (ICD-10 - K21.9) 03/05/2023 Hiatal hernia (ICD-10 - K44.9) Plan Of Treatment No Information Progress Notes * SHONDA BARLOWDOB: [birth year] (44 yo M)Acc No.[id number]:03/05/2023 EGD and COL/MAC Patient:?SHONDA BARLOW Provider:?Luis Solorio MD :1980???Age:43 Y???Sex:Male Amos e:03/05/2023 Address:[address] [place] [address] [id number] Pcp:Devorah Noguera MD Subjective: * Chief Complaints: * ???1. Gerd,change in bowels. * Medical History:? Objective: * Vitals:? Assessment: * Assessment: 1.?Other hemorrhoids - K64.8 (Primary)???2.?Change in bowel habits - R19.4???3.?Gastroesophageal reflux disease - K21.9???4.?Hiatal hernia - K44.9??? Plan: * Treatment: * Procedure Codes:?28841 DIAGN OSTIC COLONOSCOPY, 19643 UPPER GI ENDOSCOPY, BIOPSY * * The named appointment provid er may or may not be the originator of this progress note, and it is not deemed complete until electronically signed by the appointment provider. Sign off status: Pending * Provider:?Luis Solorio MD Date:? 023 Generated for Colton bhatti/Wenceslao/eTransmitting on:?07/03/2024 12:57 AM EDT
--- OUTSIDE RECORDS SUMMARY | 2024-07-03 00:58 | XMS_ITS ---
Author Name [facility] Organization [facility] Address [address] [place] [address] Care Team Providers Care Sandblaster Stone Name Role Phone SHELL TRAN Primary Care [...] Name Patient's Relationship to Policy [facility] CE ORGANIZAT ION [facility] Sep 28, 2020 [id number] SHONDA BARLOW PATIENT [place] RX [id number] PREFERRED PROVIDER ORGANIZAT ION (PPO) HEALT H [facility] [place] July 29, 2022 [id number] [phone] ESTELAVIANEYSHONDA VERGARA PATIENT [facility] PREFERRED PROVIDER ORGANIZAT ION (PPO) HEALT H [facility] July 29, 2022 [id number] [phone] ESTELAVIANEYSHONDA VERGARA PATIENT UMR* PREFERRED PROVIDER ORGANIZAT ION (PPO) HEALT H [facility] July 29, 2022 [id number] [phone] SHONDA BARLOW PATIENT Selected Encounter This section includes the information on record at [place] for the Encounter. Date/Time Encounter Type Encounter Description Reason Provider Source August 05, 2023 09:30 AM MANUAL THERAPY 1/> [facility] ICD-10-CM M54.50 Low back pain, unspecified ERNESTO AMINI N IHE Encounter Template Text not used by [place] Assessments - Encounter Diagnoses This section includes the primary and secondary diagnoses documented for the Encounter. Date/Time Primary/Secondary Diagnosis Diagnosis Name Provider Source August 05, 2023 11:54 AM PRIMARY Low back pain, unspecified [facility] Plan of Treatment: Future Appointments (+ 6 months) and Future Tests (+/- 45 days) The Plan of Treatment section includes future care activities for the patient from all [place] [facility]. This section includes future appointments and future orders which are active, pending or scheduled. Future Appointments This section includes appointments that were scheduled to occur 6 months from the date of the Encounter, up to a maximum of 20 appointments. The data comes from all [place] treatment facilities. Appointment Date/Time Appointment Type Appointme nt Facility Name August 12, 2023 09:30 AM AMBULATORY - REH[place] MEDICIN [place] [facility] [place] [facility] Sep 04, 2023 01:00 PM AMBULATORY - REH[place] MEDICIN E [place] [facility] [place] [facility] Nov 17, 2023 09:00 AM [facility] Social History: Smoking Status (Most current) and Tobacco Use (All prior to encounter date) This section includes the most current, and the historical, smoking and tobacco- related health factors from the [facility] facility where the Encounter took place. Current Smoking Status This section includes the most current smoking, or tobacco-related health factor, from the [place] facility where the Encounter took place. Date/Time Current Smoking Status Comment Nishant ity Nov 20, 2022 01:00 PM [place] Tobacco Use History This section includes a history of the smoking, or tobacco-related health factors, that were collected on or before the date of the Encounter. The data comes from the [place] facility where the Encounter took place. Date/Time Smoking Status/Tobacco Use Comment F acbrandy Sep 05, 2021 01:00 PM [place]-TOBACCO NEVER USED [facility] [place] [facility] May 10, 2020 09:00 AM VA-TOBACCO NEVER USED [facility] [place] [facility] Jan 07, 2019 10:45 AM VA-TOBACCO NEVER USED [facility] [place] [facility] Jul 24, 2017 12:53 PM LIFETIME NON-TOBACCO USER [facility] [place] [facility] Jul 15, 2016 09:35 AM LIFETIME NON-TOBACCO USER [facility] [place] [facility] Sep 21, 2012 02:42 PM LIFETIME NON-TOBACCO USER [facility] [place] [facility] Encounter Notes: All associated encounter notes This section contains the clinical notes associated to the Encounter. Date/Time Encounter Note(s) Provider Source August 05, 2023 11:48 AM PHYSICAL THERAPY NOTE: LOCAL TITLE: PHYSICAL THERAPY STANDARD TITLE: PHYSICAL THERAPY NOTE DATE OF NOTE: AUGUST 05, 2023@11:48 ENTRY DATE: AUGUST 05, 2023@11:48:03 AUTHOR: PARISH AMIN EXP COSIGNER: URGENCY: STATUS: COMPLETED Initial Evaluation date: Jun Treat Date: Jun Treatment #: 1 Treatment time: 30 mins Diagnosis: Low back pain, unspecified(ICD-10-CM M54.50) Provider: Poornima PT Treatment Precautions: Patient identified by full name and date of SUBJECTIVE: States that he's doing ok, states that he's been doing his HEP OBJECTIVE: THERAPEUTIC EXERCISE: MINUTES: 15 mins Nu step 8 mins 2 HS, calf S at the stairs seated piriformis S MANUAL THERAPY: MINUTES: 15 mins shotgun tech in hooklying MET R hip flexors foam rolled ITB, quads, HS DTM/TPR glutes, ITB, paraspinals QL S in S/L SCS glutes in S/L GAIT TRAINING: MINUTES: NEUROMUSCULAR EDUCATION: MINUTES: OTHER: MINUTES: MODALITIES: MINUTES: [] Contraindication screen completed prior to modality [] Skin intact pre/post SELF CARE/EDUCATION: MINUTES: educated on self-rolling glutes with hardball Patient education was provided for all aspects of care during this clinical encounter. ASSESSMENT: Tolerated session well, states that he had cavitation while performing the shotgun tech, states feeling looser after session, some mm tightness around upper lumbar, but feels better compared to when he walked in. PLAN: Pt to be seen 1x/week for [...] probability that sacroiliac joint pain is present. /glenny/ LUCIANA GARCIA LICENSE LETTERPRESS SETTER Signed: 08/05/2023 11:54 PARISH AMIN [facility]
--- OUTSIDE RECORDS SUMMARY | 2024-07-03 00:58 | XMS_ITS | Patient Health Record ---
Author Organization [facility] Address [address] [place] [address] Care Team Providers Care Refractory Manager Name Role Phone Poornima STEVENS, [facility] Primary Care Provider Unavail able Osmin Luis Unavailable [phone] Allergies No Known Allergies Reason For Referral No Information Medications Medication SIG (Take, Route, Frequency, Duration) Notes Start Date End Date Status Omeprazole 20 MG 1 capsule 30 minutes before morning meal Orally Once a day 11/29/2022 Active Prazosin HCl 2 MG 1 capsule at bedtime Orally Once a day for 30 day(s) For nightmares by his report 11/29/2022 Active Atomoxetine HCl 40 MG 1 capsule in the morning Orally Once a day for 30 day(s) For ADHD by his report 11/29/2022 Active Immunizations Vaccine Route Administration Date Status Comme nts Influenza Unknown 02/19/2022 Administered Social History Tobacco Use: Social History Observation Description Date Details (start date - stop date) Never Smoker NA - NA Tobacco Use/Smoking Question Answer Notes Patient is a nonsmoker Alcohol Screen Question Answer Notes Did you have a drink containing alcohol in the p ast year? No Points 0 Interpretation Negative Section Notes: He was previously in the [employer] and served in [place], [place], and [place] Problems Problem Type SNOMED Code ICD Code Onset Dates Problem Status W/U Status Risk Notes Problem [id number] Change in bowel habits (R19.4) Active confirmed Problem Gastroesophageal reflux disease (826550641) Gastroesophageal reflux disease (K21.9) Active confirmed Problem [id number] Gastroesophageal reflux disease, unspecified whether esophagitis present (K21.9) Active confirmed Plan Of Treatment Pending Test Test Name Order Date Pathology 03/05/2023 Future Test Test Name Order Date UPPER GI ENDOSCOPY 11/29/2022 COLONOSCOPY 11/29/2022 Insurance Providers Payer Name Payer Address Payer Phone Subscriber Number Group Number Insured Name Patient Relationship to Insured Coverage Start Date Coverage End Date [facility] [employer] [address] [place] [id number] SHONDA BARLOW Self - patient is the insured Medical (General) History Medical History History ICD Code Asthma GERD ADHD-on Atomoxetine Nightmares-on Prazosin PTSD Stable 5 mm gallbladder poly ps seen on ultrasounds in 2020 and 2021. 1.2 cm stable right hepatic lobe hemangioma. The ultrasounds were negative for gallstones. Patient describes a negative cardiac workup including a stress test and echocardiogram He describes some back issues with comp ressed discs Surgical History Surgery Date(Month/Year) Left knee 2021
[2024-07-03 01:06] VITALS: BP 139/81; PULSE 78; RESP 20; TEMP 36.8; O2SAT 99
[2024-07-03 02:15] VITALS: BP 141/98; PULSE 65; RESP 14; TEMP 36.8; O2SAT 99
[2024-07-03 02:16] VITALS: BP 133/87; BP 141/98; BP 147/92; PULSE 58; PULSE 63; PULSE 65
--- NOTE | 2024-07-03 02:22 | ED_ITS ---
HPI - Chest Pain General Chief Complaint: Chest Pain Stated Complaint: Chest Discomfort Time Seen by Provider: 07/03/24 01:57 Source: patient Mode of arrival: ambulatory Limitations: no limitations History of Present Illness ED Provider: Dr. Kimberley Dey HPI narrative: Patient comes to emergency room complaining of multiple episodes of hypertension at home. Patient states that he has been monitoring his blood pressure at home. Patient was recently started on labetalol for a combination of headaches and blood pressure control. Patient denies any chest pain. Patient states also that he has been having increased episodes of belching, abdominal bloating. Patient relates his symptoms secondary to a hiatal hernia which he knows that he has. Time, patient does not have chest pain palpitations shortness of breath or abdominal pain. Patient states that when his blood pressure is high, he can fell a weird sensation in his neck. Patient denies any syncopal or near syncopal episodes Related Data Home Medications ?Medication ?Instructions ?Recorded ?Confirmed atomoxetine 40 mg capsule 40 mg PO QAM 03/03/23 03/03/23 omeprazole 20 mg capsule,delayed 20 mg PO DAILY 03/03/23 03/03/23 release prazosin 2 mg capsule 2 mg PO BEDTIME 03/03/23 03/03/23 Previous Rx's ?Medication ?Instructions ?Recorded hydrochlorothiazide 25 mg tablet 25 mg PO DAILY #90 tabs 07/03/24 Allergies Allergy/AdvReac Type Severity Reaction Status Date / Time No Known Allergies Allergy Verified 07/03/24 00:27 Review of Systems 2 Review of Systems: Constitutional : No Weight loss, No Fever, No Chills, No Night Sweats, No Fatigue, No Malaise ENT/Mouth : No Hearing loss, No Ear Pain, No Nasal Congestion, No Sinus Pain, No Hoarseness, No sore throat, No Rhinorrhea, No Swallowing Difficulty Eyes: No Eye Pain, No Swelling, No Redness, No Foreign Body, No Discharge, No Vision Changes Cardiovascular : Complaining of episodes of hypertension. No Chest Pain, No SOB, No Dyspnea on Exertion, No Orthopnea, No Edema, No Palpitations Respiratory : No Cough, No Sputum, No Wheezing, No Smoke Exposure, No Dyspnea Gastrointestinal : No Nausea, No Vomiting, No Diarrhea, No Constipation, No abdominal Pain, No Hematochezia, No Melena Genitourinary : no irregular bleeding, No Dysuria, No Urinary Frequency, No Hematuria, No Urinary Incontinence, No Urgency, No Flank Pain, No Urinary Flow Changes, No Hesitancy Musculoskeletal : No joint pain, No Myalgias, No Joint Swelling Skin : No Skin Lesions, No rash Neuro : No Weakness, No Numbness, No Paresthesias, No Loss of Consciousness, No Dizziness, No Headache Psych : No Anxiety/Panic, No Depression, No SI/HI/AH/VH, No Social Issues, Heme/Lymph: No Bruising, No Bleeding,No Lymphadenopathy Endocrine : No Polyuria, No Polydipsia, No Temperature Intolerance [facility] Past Medical History Medical History PTSD (post-traumatic stress disorder) ADHD (attention deficit hyperactivity disorder) GERD (gastroesophageal reflux disease) Asthma Surgical History Hx of knee surgery Social History Social History Patient Tobacco Use Status: Never used Tobacco Smoked in Last 30 Days: No Use of substances other than those prescribed or required for medical reasons: No Advance Directives: No Advance Directives Information Provided: Yes Physical Exam 2 Vital Signs: Vital Signs: Last Vital Signs Temp 98.2 F 07/03/24 02:15 Pulse 65 07/03/24 02:16 Resp 14 07/03/24 02:15 BP 141/98 H 07/03/24 02:16 Pulse Ox 99 07/03/24 02:15 O2 Del Method Room Air 07/03/24 02:15 BMI result Body Mass Index 25.9 Const: Other: Appearance: Alert. Oriented X3. No acute distress. Eyes: Pupils equal, round and reactive to light. ENT: Pharynx normal. Neck: Normal inspection. Neck supple. No lymph nodes noted. No crepitus CVS: Normal heart rate and rhythm. Pulses normal. Normal S1 and S2 Respiratory: No respiratory distress. Breath sounds normal. No Wheezing. No rales Abdomen: Soft and nontender. No rigidity. No distention. Skin: Skin warm and dry. Normal skin color. Normal skin turgor. Extremities: No lower extremity edema. No Lacerations. No Rash Neuro: Oriented X 3. No motor deficit. No sensory deficit. Moving all extremities. No slurred speech. CN 2 through 12 grossly intact Psych: calm, cooperative, normal affect Medical Decision Making Medical Decision Making [facility] Narrative: My interpretation of EKG: Normal sinus rhythm, heart rate 62, no ST segment depression or elevation, no T-wave inversion, QTC 62 Orthostatic vitals are negative Labs: No abnormality in patient's hematology and chemistry, troponin negative When patient arrived here, patient has no pressure in the 150s, seems that the propranolol is not quite helping to control the patient's blood pressure Patient agrees to be started on hydrochlorothiazide. Patient will follow-up with his primary care physician. I discussed with the patient that if he continues having recurrent symptoms of hypertension, intermittent generalized malaise, patient could potentially be referred the his primary care physician to a medicine and health service manager for a Holter monitor evaluation. Differential Diagnosis Differential Diagnoses: The differential diagnosis associated with the presentation includes (Hypertension, orthostatic hypotension, anxiety) Lab Data [facility] Lab Attestation statement: I reviewed the patient's lab results. 07/03/24 00:22 07/03/24 00:22 Labs: Lab Results 07/03/24 Range/Units 00:22 WBC 5.2 (4.8-10.8) X10*3/uL RBC 4.61 (4.60-5.80) X10*6/uL Hgb 13.9 L (14.0-18.0) g/dl Hct 39.8 L (42.0-52.0) % MCV 86.3 (80.0-98.0) fL MCH 30.2 (27.0-33.0) pg MCHC 34.9 (31.0-36.0) g/dl RDW 12.2 (11.0-16.0) % Plt Count 171 (160-400) X10*3/uL MPV 9.6 (9.4-12.4) fL Immature Gran % (Auto) 0.2 (0.0-0.4) % Neut % (Auto) 43.9 L (45-73) % Lymph % (Auto) 41.9 H (20-40) % [place] % (Auto) 9.7 (2-11) % Eos % (Auto) 3.7 (0-4) % Baso % (Auto) 0.6 (0-2) % Lymph # (Auto) 2.2 (1.2-4.9) X10*3/uL [place] # (Auto) 0.5 (0.1-1.2) X10*3/uL Eos # (Auto) 0.2 (0.0-0.4) X10*3/uL Baso # (Auto) 0.0 (0.0-0.2) X10*3/uL Abs Immat Gran (auto) 0.01 (0.00-0.03) X10*3/uL Absolute Neuts (auto) 2.3 (2.0-8.3) x10*3/uL Absolute Nucleated RBC 0.000 (0.0-0.012) X10*3/uL Nucleated RBC % (auto) 0.0 (0.0-0.2) /100WBC Sodium 142 (135-145) mmol/L Potassium 3.5 D (3.3-5.1) mmol/L Chloride 109 H (96-108) mmol/L Carbon Dioxide 28 (22-29) mmol/L Anion Gap 9 L (12-20) BUN 12 (9-16) mg/dL Creatinine 1.04 (0.5-1.4) mg/dL Estim Creat Clear Calc 94.5 Estimated GFR > 60 Random Glucose 112 (60-115) mg/dL Calcium 9.0 (8.4-10.2) mg/dL Total Bilirubin 0.2 (0.0-1.0) mg/dL AST 21 (5-37) U/L ALT 24 (0-40) U/L Alkaline Phosphatase 54 (39-117) U/L Troponin I High Sens < 2.7 (<3.5-35.0) ng/L Total Protein 6.9 (6.5-8.0) g/dL Albumin 4.1 (3.5-5.0) g/dL Independent Interpretation I performed an independent interpretation of an: EKG Discharge Plan Discharge Clinical Impression: Hypertension Patient Disposition: Home, Self-Care Instructions: Hypertension (ED) Additional Instructions: Please follow-up with your primary care physician tomorrow. If you have any worsening or new symptoms, please return to the emergency room or call 911 Prescriptions: New hydrochlorothiazide 25 mg tablet 25 mg PO DAILY Qty: 90 0RF No Action omeprazole 20 mg Capsule,Delayed Release(Dr/Ec) 20 mg PO DAILY prazosin 2 mg Capsule 2 mg PO BEDTIME atomoxetine 40 mg Capsule 40 mg PO QAM Print Language: Hungarian
[2024-07-03 03:03] VITALS: BP 141/98; PULSE 65; RESP 11; TEMP 36.6; O2SAT 99
== END 2024-07-03 03:03 | disposition home or self-care (01) ==
PROVIDERS: Emergency Provider Emergency Medicine; PCP Internal Medicine
DX: I10 Essential (primary) hypertension (principal)
CPT/HCPCS: 36415; 80053; 84484; 85025; 93005; 99283; 99284

== ENCOUNTER → 2024-07-03 00:15 | Outpatient (BNV) | payer OTHER, SELFPAY | PROVIDERS: Emergency Provider Emergency Medicine; PCP Internal Medicine; Visit Provider Internal Medicine | DX: R07.9 Chest pain, unspecified (principal) | CPT/HCPCS: 93010 ==

== ENCOUNTER 2024-07-10 12:50 | Emergency (ER) | payer OTHER, SELFPAY ==
--- NOTE | ~2024-07-10 | US_ITS ---
CLINICAL HISTORY: r o GARY. persistent HTN Renal Doppler ultrasound. COMPARISON: None Technique: Real time duplex ultrasound imaging was performed by the switchboard inspector. Multiple promotional representative static images were saved for review. FINDINGS: Aorta: 91 cm/s. Right kidney: Normal size and echotexture, 9.6 cm length. Main renal artery peak systolic velocities: Proximal: 101 cm/s Mid: 122 cm/s Distal: 93 cm/s Segmental resistive index: 0.5 RAR: 1.3 Left kidney: Normal size and echotexture, 12.0 cm length. Main renal artery peak systolic velocities: Proximal: 170 cm/s Mid: 81 cm/s Distal: 72 cm/s Segmental resistive index: 0.6 RAR: 1.9 IMPRESSION: 1. No evidence of renal artery stenosis. 2. Normal renal artery resistive indices bilaterally. This document has been electronically signed by: Juan Claire MD on 07/10/2024 15:24:29
--- NOTE | ~2024-07-10 | XR_ITS ---
CLINICAL HISTORY: cp Two views of the chest. COMPARISON: None FINDINGS: Normal heart and mediastinal contours. No consolidation. No pleural effusion or pneumothorax. No fracture identified. IMPRESSION: 1. No consolidation. This document has been electronically signed by: Juan Claire MD on 07/10/2024 15:02:14
[2024-07-10 13:12] VITALS: BP 155/104; PULSE 63; RESP 16; TEMP 37; O2SAT 100; BMI 23.7
--- NOTE | 2024-07-10 13:14 | ECG_ITS ---
Test Reason : chest pain Blood Pressure : */* mmHG Vent. Rate : 64 BPM Atrial Rate : 64 BPM P-R Int : 194 ms QRS Dur : 108 ms QT Int : 410 ms P-R-T Axes : 20 6 19 degrees QTcB Int : 422 ms Normal sinus rhythm Normal ECG When compared with ECG of 03-Jul-2024 00:15, No significant change was found Referred By: Kelsie Gómez Electronically Signed By: Aristeo Terrell
--- NOTE | 2024-07-10 13:14 | ED.GENADULT ---
HPI - General Adult General Chief complaint: Headache Stated complaint: high bp Time Seen by Provider: 07/10/24 13:33 Source: patient, RN notes reviewed and old records reviewed Mode of arrival: ambulatory History of Present Illness ED Provider: Samantha Harper PA-C HPI narrative: 44-year-old male with a past medical history PTSD, ADHD, GERD, asthma, newly diagnosed hypertension currently on 60mg of Propranolol (x mos) and 25mg of HCTZ (since 07/03/24), presenting to the ED complaining of persistent hypertension at home with elevated BP readings 170-180's / 100's, and intermittent episodes of headache, paresthesias, chest pressure and SOB through the day. States he can feel his blood pressure elevate due to associated symptoms, which subsequently makes patient generally fatigued/weak. States initially was evaluated for headache and was diagnosed with hypertension last month in our ED. Has been compliant with prescribed medications. Denies EtOH or drug use, supplement use/energy drink use, nausea, vomiting, vision change or loss pain focal weakness. Patient was evaluated at [facility] ED last night for similar symptoms, no medication changes made at that time, BP at [facility] was 173/111 per records received Related Data Home Medications ?Medication ?Instructions ?Recorded ?Confirmed atomoxetine 40 mg capsule 40 mg PO QAM 03/03/23 03/03/23 omeprazole 20 mg capsule,delayed 20 mg PO DAILY 03/03/23 03/03/23 release prazosin 2 mg capsule 2 mg PO BEDTIME 03/03/23 03/03/23 Previous Rx's ?Medication ?Instructions ?Recorded amlodipine 5 mg tablet 5 mg PO DAILY 30 days #30 tabs 07/10/24 Allergies Allergy/AdvReac Type Severity Reaction Status Date / Time No Known Allergies Allergy Verified 07/10/24 13:14 Review of Systems Review of Systems: Yes all other systems are reviewed and are negative Constitutional: Constitutional: Reports as per HPI Neurologic: Denies Abnormal speech present [facility] Past Medical History Attestation statement: The following information was validated with the patient. Source: old records reviewed Medical History PTSD (post-traumatic stress disorder) ADHD (attention deficit hyperactivity disorder) GERD (gastroesophageal reflux disease) Asthma Surgical History Hx of knee surgery Social History Social History Patient Tobacco Use Status: Never used Tobacco Physical Exam ED Vital Signs: Vital Signs - 24 hr 07/10/24 13:12 07/10/24 14:15 07/10/24 14:32 Temperature 98.6 F Pulse Rate 63 84 Respiratory Rate 16 14 Blood Pressure 155/104 H 170/102 H 168/100 H Pulse Oximetry 100 98 Oxygen Delivery Method Room Air Room Air 07/10/24 15:11 07/10/24 16:28 Temperature 98.1 F 98.1 F Pulse Rate 60 58 Respiratory Rate 16 16 Blood Pressure 136/98 H 134/96 H Pulse Oximetry 100 97 Oxygen Delivery Method Room Air Room Air BMI result Body Mass Index 23.7 Const General: cooperative, healthy appearing and no acute distress Orientation/consciousness: patient oriented x3 Limitations: no limitations HENMT Head: Yes normal to inspection and Yes atraumatic Ears: hearing grossly normal bilaterally General nose exam: Normal external nose present Face and sinus: Yes normal facial exam Mouth: Normal oral and palatal mucosa present and no drooling Throat: Yes posterior oropharynx normal, Yes uvula midline and No peritonsillar mass Eyes General: appearance normal, both eyes and all related structures Pupils: Equal, round and reactive pupils present EOM: EOMs intact bilaterally Neck Neck: Yes normal visual inspection, Yes full ROM, Yes no meningeal signs and No anterior neck swelling Resp Effort & Inspection: normal respiratory effort and no respiratory distress Auscultation: clear to auscultation bilaterally, no crackles and no wheezes Cardio Rate: regular rate Heart sounds: S1 normal heart sound present and S2 normal heart sound present GI Inspection: Yes normal to inspection Palpation (GI): Soft to palpation, nontender, no guarding and not rigid Skin Rashes: no rashes Wounds: no wounds Neuro General: patient oriented x3, gait normal, tone normal, moves all extremities, no meningeal signs, no focal motor deficits and CN's II-XI intact bilaterally Cranial nerves: Yes CN's II-XII intact bilaterally, Yes Equal, round and reactive pupils present and Yes Bilaterally intact EOM present Cognition (Neuro): normal cognition Speech: No Abnormal speech present Gait exam (Neuro): Normal gait present Motor exam (neuro): 5/5 motor strength present throughout, Pronator motor function not present and no tremor noted Coordination: [id number] test normal Romberg Test: Negative Extrem General: Yes normal to inspection and Yes no pedal edema Course Course Course Narrative: This is a rapid medical exam performed by Kj Gómez NP: Additional HPI, ROS, PE not included below will be deferred to primary provider. 07/10/24 13:15 Patient is a 44-year-old male presenting to the ED from work with several high BP readings as well as headache. Seen here on 07/03 for same. Went to [facility] last night for same but no medication changes. Today BP was 180/107. [place] cool, clammy, weak. Plan: EKG, labs -1620 - Labs reassuring including negative troponin and thyroid function -CXR unremarkable US renal doppler IMPRESSION: 1. No evidence of renal artery stenosis. 2. Normal renal artery resistive indices bilaterally. > blood pressure improved to 136/98 after p.o. amlodipine given in the ED. discussed with patient will discontinue recently prescribed HCTZ and start on 5 mg of amlodipine. Should continue to monitor BP at home. Needs to be worked up outpatient for persistent hypertension including rule out a pheochromocytoma. This was discussed with patient Results discussed with patient including worrisome signs and symptoms and strict return precautions, and when to return to the emergency department. They verbalized understanding and feel safe for discharge at this time. Medications Administered Discontinued Medications Generic Name Dose Route Start Last Admin Trade Name Freq PRN Reason Stop Dose Admin Acetaminophen/Butalbital/Caffeine 1 tab 07/10/24 14:10 07/10/24 14:33 Butalb/Acetamin/Caff 50/325/40 Tablet PO 07/10/24 14:11 1 tab ONCE ONE Administration Amlodipine Besylate 5 mg 07/10/24 14:16 07/10/24 14:32 Amlodipine Besylate 5 Mg Tablet PO 07/10/24 14:17 5 mg ONCE ONE Administration Protocol Medical Decision Making Medical Decision Making MDM Narrative: 44-year-old male with a past medical history PTSD, ADHD, GERD, asthma, newly diagnosed hypertension currently on 60mg of Propranolol (x mos) and 25mg of HCTZ (since 07/03/24), presenting to the ED complaining of persistent hypertension at home with elevated BP readings 170-180's / 100's, and intermittent episodes of headache, paresthesias, chest pressure and SOB through the day. On exam hypertensive 155/104, 170/102, NAD, nontoxic appearing, no focal neuro deficits. No reproducible neck tenderness. Headache not maximal onset, intermittent. Low suspicion for meningitis/encephalitis, SAH, brain mass. Concern for acute on chronic uncontrolled hypertension vs ACS vs MARCO. Concern for renal artery stenosis vs pheochromocytoma vs thyroid disorder Plan: EKG, labs, CXR, Fioricet, amlodipine, renal ultrasound Please refer to course for remaining clinical decision making, interpretation of labs/imaging results, and discussions with consultants and/or family members. Differential Diagnosis Differential Diagnoses: The differential diagnosis associated with the presentation includes As above Admission/Observation Consideration of admission/observation: Escalation of care including admission/observation considered Lab Data MDM Lab Attestation statement: I reviewed the patient's lab results. 07/10/24 13:30 07/10/24 13:30 Labs: Lab Results 07/10/24 Range/Units 13:30 WBC 4.9 (4.8-10.8) X10*3/uL RBC 5.06 (4.60-5.80) X10*6/uL Hgb 15.3 (14.0-18.0) g/dl Hct 43.6 (42.0-52.0) % MCV 86.2 (80.0-98.0) fL MCH 30.2 (27.0-33.0) pg MCHC 35.1 (31.0-36.0) g/dl RDW 12.2 (11.0-16.0) % Plt Count 204 (160-400) X10*3/uL MPV 9.6 (9.4-12.4) fL Immature Gran % (Auto) 0.2 (0.0-0.4) % Neut % (Auto) 45.4 (45-73) % Lymph % (Auto) 40.7 H (20-40) % [place] % (Auto) 9.8 (2-11) % Eos % (Auto) 3.3 (0-4) % Baso % (Auto) 0.6 (0-2) % Lymph # (Auto) 2.0 (1.2-4.9) X10*3/uL [place] # (Auto) 0.5 (0.1-1.2) X10*3/uL Eos # (Auto) 0.2 (0.0-0.4) X10*3/uL Baso # (Auto) 0.0 (0.0-0.2) X10*3/uL Abs Immat Gran (auto) 0.01 (0.00-0.03) X10*3/uL Absolute Neuts (auto) 2.2 (2.0-8.3) x10*3/uL Absolute Nucleated RBC 0.000 (0.0-0.012) X10*3/uL Nucleated RBC % (auto) 0.0 (0.0-0.2) /100WBC Sodium 140 (135-145) mmol/L Potassium 3.8 (3.3-5.1) mmol/L Chloride 103 (96-108) mmol/L Carbon Dioxide 28 (22-29) mmol/L Anion Gap 13 (12-20) BUN 14 (9-16) mg/dL Creatinine 1.05 (0.5-1.4) mg/dL Estim Creat Clear Calc 93.6 Estimated GFR > 60 Random Glucose 103 (60-115) mg/dL Calcium 9.6 D (8.4-10.2) mg/dL Magnesium 1.8 (1.6-2.6) mg/dL Total Bilirubin 0.3 (0.0-1.0) mg/dL AST 20 (5-37) U/L ALT 17 (0-40) U/L Alkaline Phosphatase 55 (39-117) U/L Troponin I High Sens < 2.7 (<3.5-35.0) ng/L Total Protein 7.4 (6.5-8.0) g/dL Albumin 4.4 (3.5-5.0) g/dL TSH 1.90 (0.32-4.0) uIU/mL Independent Interpretation I performed an independent interpretation of an: EKG and Plain X-Ray Radiology Impression Discussion of test interpretation with radiology: I have reviewed the radiologist's reading. External Record Review External record reviewed: Inpatient record, Office record, Outpatient record, Prior outpatient labs, Prior outpatient radiology, Primary care record and Outside ED record Tests considered The following testing was considered but not selected: As above Prescription Management I considered prescription management with: Other Chronic Conditions Patient?s care impacted by: Hypertension and Other Social Determinants Patient?s care significantly limited by Social Determinants of Health including: Other Social Determinant of Health Discharge Plan Discharge Clinical Impression: HTN (hypertension), Headache, Chest pain Patient Disposition: Home, Self-Care Instructions: Chest Pain (DC), Acute Headache (DC), Hypertension (ED) Additional Instructions: your blood work is reassuring Your thyroid function was within normal limits Your renal ultrasound was unremarkable Please stop taking previously prescribed hydrochlorothiazide and start taking amlodipine 5 mg daily in addition to your propranolol So you will now be taking amlodipine and propranolol daily Continue to monitor your blood pressure at home You need to follow up with your primary care doctor for continued blood pressure monitoring, medication adjustments, and further workup of your hypertension We recommend outpatient urine amphetamines with your PCP to rule out a pheochromocytoma If your symptoms persist or worsen you constant or worsening chest pain, shortness of breath, headache, weakness return to the ED Prescriptions: New amlodipine 5 mg tablet 5 mg PO DAILY 30 Days Qty: 30 0RF Discontinued hydrochlorothiazide 25 mg tablet 25 mg PO DAILY Qty: 90 0RF No Action omeprazole 20 mg Capsule,Delayed Release(Dr/Ec) 20 mg PO DAILY prazosin 2 mg Capsule 2 mg PO BEDTIME atomoxetine 40 mg Capsule 40 mg PO QAM Referrals: [facility] [place] [facility] [place] [Provider Group] [facility] [place] [facility], [place] [Provider Group] [facility] [place] [facility] [place]Provider Group] Maine Lanza MD [Primary Care Provider] - 3 days Interventions: ED Discharge Assessment Last Done: 07/10/24 16:28 Discharge Date/Time: 07/10/24 16:33 Print Language: Ethiopian
[2024-07-10 13:34] LABS: MANUAL DIFF FLAG NO
--- OUTSIDE RECORDS SUMMARY | 2024-07-10 13:44 | XMS_ITS ---
Author Name [facility] [place] Organization [facility] [facility] [place] Address [address] [place] [address] Care Team Prov[address] Care [address] Production General Manager Name Role Phone SHELL LANZA Primary Care [...] Name Patient's Relationship to Policy [facility] CE ORGANIZAT ION [facility] Sep 28, 2020 [id number] SHONDA BARLOW PATIENT [place] [id number] PREFERRED PROVIDER ORGANIZAT ION (PPO) [facility] [place] July 29, 2022 [id number] [phone] SHONDA BARLOW PATIENT UMR PREFERRED PROVIDER ORGANIZAT ION (PPO) [facility] [place] July 29, 2022 [id number] [phone] SHONDA BARLOW PATIENT UMR* PREFERRED PROVIDER ORGANIZAT ION (PPO) [facility] [place] July 29, 2022 [id number] [phone] ESTELASHONDA GORMAN PATIENT Selected Encounter This section includes the information on record at [place] for the Encounter. Date/Time Encounter Type Encounter Description Reason Provider Source Jun 16, 2024 03:30 PM OFFICE O/P EST HI 40 MIN PRIMARY CARE/MEDICINE ICD-10-CM Z77.29 Contact with and exposure to other hazardous substances SHELL LANZA IHE Encounter Template Text not used by [place] Assessments - Encounter Diagnoses This section includes the primary and secondary diagnoses documented for the Encounter. Date/Time Primary/Secondary Diagnosis Diagnosis Name Provider Source Jun 16, 2024 04:19 PM PRIMARY Contact with and exposure to other hazardous substances FURCOLO,SHELL [facility] [place] [facility] Jun 16, 2024 04:19 PM SECONDARY Attention-deficit hyperactivity disorder, unspecified type FURCOLO,SHELL [facility] [place] [facility] Jun 16, 2024 04:19 PM SECONDARY Cough variant asthma FURCOLO,SHELL [facility] [place] [facility] Jun 16, 2024 04:19 PM SECONDARY Gastro-esophageal reflux disease without esophagitis FURCOLO,SHELL [facility] [place] [facility] Jun 16, 2024 04:19 PM SECONDARY Low back pain, unspecified FURCOLO,SHELL [facility] [place] [facility] Jun 16, 2024 04:19 PM SECONDARY Mastodynia FURCOLO,SHELL [facility] [place] [facility] Jun 16, 2024 04:19 PM SECONDARY Pain in unspecified knee FURCOLO,SHELL [facility] [place] [facility] Jun 16, 2024 04:19 PM SECONDARY Post-traumatic stress disorder, unspecified FURCOLO,SHELL [facility] [place] [facility] Jun 16, 2024 04:19 PM SECONDARY Varicose veins of other specified sites FURCOLO,SHELL [facility] [place] [facility] Plan of Treatment: Future Appointments (+ 6 months) and Future Tests (+/- 45 days) The Plan of Treatment section includes future care activities for the patient from all [place] treatmentfacilities. This section includes future appointments and future orders which are active, pending or scheduled. Future Appointments This section includes appointments that were scheduled to occur 6 months from the date of the Encounter, up to a maximum of 20 appointments. The data comes from all [place] treatment facilities. Appointment Date/Time Appointment Type Appointme nt Facility Name Jul 05, 2024 09:00 AM [facility] Dec 16, 2024 09:00 AM [facility] - [facility] Lab Results: +/- 30 days of the encounter This section includes the Chemistry and Hematology Lab Results on record with [place] for the patient. Radiology Reports and Pathology Reports are provided separately, in subsequent sections. Lab Results This section contains the Chemistry/Hematology Results that were resulted 30 days before or 30 daysafter the date of the Encounter. Date/Time Source Result Type Result - Unit Interpretation Reference Range Specimen Type Comment Jun 17, 2024 09:26 AM [facility] LYME SEROLOGY PANEL SERUM Specimen Type: SERUM Comment: The LYME SEROLOGY PANEL was performed using the FDA-approved [employer] MENDEZ Borrelia burdorferi modified two-tier test system. This modified methodology uses a second EIA in place of a western immunoblot assay, which the FDA has determined is substantially equivalent to or better than standard two-tier testing using western blot. Supplemental testing with a second EIA meets CDC guidelines for Lyme disease testing. Performance characteristics of the panel were validated at the [place] [facility]. Results are considered [...] aborted by early antibiotic therapy. Results in immunosuppressed individuals should be interpreted with caution. If [...] Jun 16, 2024 03:53 PM Reporting Lab: [facility] [address] [facility] [address] Performing Lab: [facility] [address] [facility] [address] TIER 1 LYME SCREENING EIA Negative Negat michelle LYME AB FINAL INTERPRETATION Negative Ne gative Jun 17, 2024 09:26 AM [facility] ANAPLASMA AND EHRLICHIA AB PANEL SERUM Specim en Type: SERUM Comment: REFERENCE RANGE: <1:64 REFERENCE [...] analytical performance characteristics have been determined by [employer] [place]. It has not been cleared or [...] analytical performance characteristics have been determined by [employer]. It has not been cleared or approved by the U.S. Food and Drug Administration. This assay has been validated pursuant to the CLIA regulations and is used for clinical purposes. Test Performed by [facility], [facility], [address], [place] Fish Ramirez M.D., Ph.D., Director of Laboratories , [place] [id number] TEST PERFORMED AT: , Ordering Provider: SHELL LANZA Report Released Date/Time: Jun 16, 2024 03:59 PM Reporting Lab: [facility] [place] [facility] [address] [facility] [address] Performing Lab: [facility] [address] [address] E. chaffeensis Ab IgG <1:64 SEE BELOW E. chaffeensis Ab IgM <1:20 SEE BELOW A.phagocytophilum Ab IgG <1:64 SEE BEL OW A.phagocytophilum Ab IgM <1:20 SEE BEL OW EHRLICHIA CHAFFEENSIS AB INTER SEE NOTE A. phagocytophilum inter SEE NOTE Jun 17, 2024 09:26 AM [facility] TESTOSTERONE, TOTAL (WHV) SERUM Specimen Type : SERUM No comment entered. Ordering Provider: SHELL LANZA Report Released Date/Time: Jun 16, 2024 04:10 PM Reporting Lab: [facility] [address] [facility] [address] Performing Lab: [facility] [address] [address] TESTOSTERONE, TOTAL (WHV) 907.09 ng/dL H 2 20.00-892.00 Jun 17, 2024 09:26 AM [facility] SED RATE, AUTOMATED BLOOD Specimen Type: BLOO D No comment entered. Ordering Provider: SHELL LANZA Report Released Date/Time: Jun 16, 2024 03:53 PM Reporting Lab: [facility] [address] [facility] [address] Performing Lab: [facility] [address] [facility] [address] SED RATE, AUTOMATED <1 mm/h 0-15 Jun 17, 2024 09:26 AM [facility] CBC BLOOD Specimen Type: BLOOD No comment entered. Ordering Provider: SHELL LANZA Report Released Date/Time: Jun 16, 2024 03:53 PM Reporting Lab: [facility] [address] [facility] [address] Performing Lab: [facility] [address] [facility] [address] WBC 4.03 10*3/uL L 4.50-11.00 RBC 5.18 10*6/uL 4.23-5.66 HGB 15.6 g/dL 12.8-17 HCT 45.8 39.2-50.4 MCV 88.4 fL 82-99 MCHC 34.1 g/dL 30.8-35.1 PLT 196 10*3/uL 140-360 RDW-CV 12.2 12.0-16.0 MCH 30.1 pg 26.2-32.6 Jun 17, 2024 09:26 AM [facility] BASIC METABOLIC PANEL (fasting) SERUM Specime n Type: SERUM No comment entered. Ordering Provider: SHELL LANZA Report Released Date/Time: Jun 16, 2024 03:53 PM Reporting Lab: [facility] [address] [facility] [address] Performing Lab: [address] [address] UREA NITROGEN 11 mg/dL 7-25 GLUCOSE 86 [...] 69 151/99 16 100 3 180 26 [facility] Social History: Smoking Status (Most current) and Tobacco Use (All prior to encounter date) This section includes the most current, and the historical, smoking and tobacco- related health factors from the [place] facility where the Encounter took place. Current Smoking Status This section includes the most current smoking, or tobacco-related health factor, from the [place] facility where the Encounter took place. Date/Time Current Smoking Status Comment Nishant ity Nov 17, 2023 09:00 AM VA-TOBACCO NEVER USED [place] [facility] [place] [facility] Tobacco Use History This section includes a history of the smoking, or tobacco-related health factors, that were collected on or before the date of the Encounter. The data comes from the [place] facility where the Encounter took place. Date/Time Smoking Status/Tobacco Use Comment F acility Nov 20, 2022 01:00 PM VA-TOBACCO NEVER USED [facility] [place] [facility] Sep 05, 2021 01:00 PM VA-TOBACCO NEVER USED [facility] [place] [facility] May 10, 2020 09:00 AM VA-TOBACCO NEVER USED [facility] [place] [facility] Jan 07, 2019 10:45 AM VA-TOBACCO NEVER USED [facility] [place] [facility] Jul 24, 2017 12:53 PM LIFETIME NON-TOBACCO USER [facility] [place] [facility] Jul 15, 2016 09:35 AM LIFETIME NON-TOBACCO USER [facility] [place] [facility] Sep 21, 2012 02:42 PM LIFETIME NON-TOBACCO USER [facility] [place] [facility] Encounter Notes: All associated encounter notes This section contains the clinical notes associated to the Encounter. Date/Time Encounter Note(s) Provider Source Jun 25, 2024 02:05 PM LETTERS: LOCAL TITLE: PATIENT LETTER (T) STANDARD TITLE: LETTERS DATE OF NOTE: JUN 25, 2024@14:05 ENTRY DATE: JUN 25, 2024@14:05:28 AUTHOR: SHELL LANZA COSIGNER: URGENCY: STATUS: COMPLETED [facility] Toll Free Number Primary Care Telephone Assistance can be reached at extension [phone] [facility] scheduling can be reached at extension [phone] [facility] scheduling can be reached at ext [phone] SHONDA BARLOW [address] [place] [address], [phone] Dear Carmel, Your recent test results are as follows: [...] questions or concerns. Upcoming Appointments: 12/16/2024 09:00 [facility] PACT ADAM STEVENS Sincerely, Your Primary Care Team [facility] [address] [facility] [address] [place] [address] [place] [address] [phone] [facility] [address] [place] [address] [place] [address] [phone] [facility] [address] [facility] [place] [address] [place] [address] [phone] SHELL LANZA [facility] [place] [facility] Jun 25, 2024 08:39 AM ADMINISTRATIVE NOTE: LOCAL TITLE: FAX/MAIL RECEIVED STANDARD TITLE: ADMINISTRATIVE NOTE DATE OF NOTE: JUN 25, 2024@08:39 ENTRY DATE: JUN 25, 2024@08:39:44 AUTHOR: CECIL MORALES EXP COSIGNER: URGENCY: STATUS: COMPLETED Document Received On: May Document Type: Emergency Department Note Date of Service: May Facility and or Provider: [facility] Contact Information: PCP of Record: SHELL LANZA Next visit with PCP: 12/16/2024 09:00 [facility] PACT ADAM STEVENS Primary Care May [...] for the last 2 weeks, was moody bhatti filippo when he developed this pa in, pain [...] Differential diagnosis may include SDH, SAH, ICH, NURSE WOUND CARE mass, meningitis, enceph alitis, cervical artery dissection, [...] with the presentation includes (SDH, SAH, !CH, NURSE WOUND CARE mass, meningitis, encephalitis, CVA, GCA, migraine, headache) [...] 14:05 /shweta/ SHELL LANZA D.O. PHYSICIAN CECIL MORALES [facility] [place] [facility] Jun 16, 2024 03:34 PM PHYSICIAN NOTE: LOCAL TITLE: MD NOTE STANDARD TITLE: PHYSICIAN NOTE DATE OF NOTE: JUN 16, 2024@15:34 ENTRY DATE: JUN 16, 2024@15:34:48 AUTHOR: SHELL LANZAIGNER: URGENCY: STATUS: COMPLETED SHONDA BARLOW is a 44 year old WHITE MALE who is being seen today in primary care for daily headaches x 3 weeks. 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 went to [place] [facility] and had CT scan brain- normal. [...] Gynecomastia 8. Left knee pain (SNOMED CT [id number]) 9. Cough variant asthma 10. Postconcussion syndrome 11. Low back pain (SNOMED CT [id number]) 12. Pain in joint involving shoulder region [...] HISTORY = Background: born and raised in [place], [place], 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 had CT scan at [place] [facility]- no need to re-image anxiety- could [...] Signed: 06/16/2024 16:19 SHELL LANZA [facility] Jun 16, 2024 03:24 PM PREVENTIVE MEDICINE NURSING NOTE: LOCAL TITLE: CLINICAL REMINDERS/NURSING STANDARD TITLE: PREVENTIVE MEDICINE NURSING NOTE DATE OF NOTE: JUN 16, 2024@15:24 ENTRY DATE: JUN 16, 2024@15:24:45 AUTHOR: CECIL MORALES EXP COSIGNER: URGENCY: STATUS: COMPLETED Suicide Screen: C-SSRS Screening [place] Suicide Severity Rating Scale (C-SSRS) screener 1. [...] Practical Nurse Signed: 06/16/2024 15:32 CECIL MORALES [facility]
--- OUTSIDE RECORDS SUMMARY | 2024-07-10 13:44 | XMS_ITS | Continuity of Care Document ---
Author Name [facility] Organization [facility] Care Team Providers Care Deputy Jailer Name Role Phone [facility] Unavailable Unavailable Problems Combined list of problems [...] [facility] Left knee pain (SNOMED CT [id number]) [facility] Low back pain (SNOMED CT [id number]) Active Condition [facility] Pain in joint involving shoulder region (ICD-9-CM 719.41) Active Condition [facility] Postconcussion syndrome Active Condition [facility] Posttraumatic stress disorder Active Condition [facility] Scrotal varices Active Condition [facility] Diagnosis: ICD-10-CM R03.0 Elevated blood-pressure reading, w/o diagnosis of htn Active Diagnosis [facility] Diagnosis: ICD-10-CM Z77.29 Contact with and exposure to other hazardous substances Active Diagnosis [facility] Diagnosis: ICD-10-CM M54.50 Low back pain, unspecified Active Diagnosis [facility] Diagnosis: ICD-10-CM F43.10 Post-traumatic stress disorder, unspecified Active Diagnosis [facility] Diagnosis: ICD-10-CM M25.562 Pain in left knee Active Diagnosis [facility] Diagnosis: ICD-10-CM I86.8 Varicose veins of other specified sites Active Diagnosis [facility] Diagnosis: ICD-10-CM N50.812 Left testicular pain Active Diagnosis [facility] Medications Combined list of outpatient medications from Department of Defense and [facility] facilities.Medications provided include 1) outpatient medications from the last 15 months, and 2) patient-reported medications. Medication Details Route Status Patient Instructions Prescription Expires Prescription Number Last Dispense Date Ordering Provider Order Date Order Qty Source CYCLOBENZAP RINE HCL 10MG TAB TAKE ONE TABLET BY MOUTH TWICE DAILY NEEDED USE FOR 5 DAYS DURING ACUTE BACK PAIN EPISODES ORAL ACTIVE 03/31/2025 [id number] FURCOLO,T CHON 2023 30 [facility] LIDOCAINE 5% PATCH APPLY 1 PATCH TOPICALL Y ONCE DAILY NEEDED FOR ACUTE BACK PAIN (LEAVE PATCH ON FOR 12 HOURS, THEN REMOVE PATCH) TOPICA L ACTIVE 03/31/2025 [id number] FURCOLO,T CHON 2023 30 [facility] METHYLPREDN ISOLONE 4MG TAB TAKE SIX TABLETS BY MOUTH ONCE DAILY FOR 1 DAY, THEN TAKE FIVE TABLETS ONCE DAILY FOR 1 DAY, THEN TAKE FOUR TABLETS ONCE DAILY FOR 1 DAY, THEN TAKE THREE TABLETS ONCE DAILY FOR 1 DAY, THEN TAKE TWO TABLETS ONCE DAILY FOR 1 DAY, THEN TAKE ONE TABLET ONCE DAILY FOR 1 DAY ORAL 04/29/2024 [id number] FURCOLO,T CHON 2024 21 [facility] MULTIVITAMI NS W/MINERALS TAB TAKE ONE TABLET BY MOUTH ORAL ACTIVE MANDO EDWARDS 2022 [facility] OMEPRAZOLE 20MG CAP,EC TAKE ONE CAPSULE BY MOUTH EVERY MORNING 30 MINUTES BEFORE BREAKFAS T ORAL ACTIVE 06/17/2025 [id number] [facility]URCOLO,T CHON 2024 [facility] OMEPRAZOLE 20MG CAP,EC TAKE ONE CAPSULE BY MOUTH EVERY MORNING 30 MINUTES BEFORE BREAKFAS T ORAL DISCONT INUED BY PROVIDE R 05/21/2024 [id number] LANIE WILKERSON AMROCIO JAWED 2023 90 [facility] PROPRANOLOL HCL 60MG CAP,SA TAKE ONE CAPSULE BY MOUTH ONCE DAILY FOR MIGRAINE PREVENTI ON ORAL ACTIVE 06/17/2025 [id number] FURCOLO,T CHON 2024 30 [facility] PSYLLIUM PWDR,ORAL TAKE 2 TEASPOON FULS BY MOUTH ONCE DAILY FOR CONSTIPA TION (MIX WITH AT LEAST 8OZ. OF WATER OR OTHER FLUID) ORAL 05/21/2024 [id number] [facility] AMROCIO JAWED 2023 390 [facility] Immunizations Combined list of available immunizations from the Department of Defense and Veterans Affairs facilities. 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 [facility] INFLUENZA, UNSPECIFIED FORMULATION 2022 88 complet ed Completed Series, HISTORICA L INFORMATI ON - FROM PATIENT'S RECALL, [facility] INFLUENZA, UNSPECIFIED FORMULATION 2021 88 complet ed HISTORICA L INFORMATI ON - SOURCE UNSPECIFI ED, [facility] COVID-19 (MODERNA), MRNA, LNP-S, PF, 100 MCG OR 50 MCG DOSE 3 2020 207 complet ed MOD; [id number]; 2 [facility] COVID-19 (MODERNA), MRNA, LNP-S, PF, [...] B, ADULT 3 2001 43 complet ed HISTORICA L INFORMATI ON - [facility] OTHER PROVIDER[facility] [place] HEP B, ADULT 2 2000 43 complet ed HISTORICA L INFORMATI ON - FROM OTHER PROVIDER, [facility] [place] [facility] HEP B, ADULT 1 2000 43 complet ed HISTORICA L INFORMATI ON - FROM OTHER REGISTRY, [facility] [place] [facility] Results Combined list of recent chemistry, hematology and other laboratory results from Department of Defense and Veterans Affairs, ranging from 15 months to all on record, depending upon the facility. Order Name Results Value Reference Range Date Interpretation Specimen Comments Source ANAPLASM A AND EHRLICHI A AB PANEL [...] performance characteris tics have been determined by [employer] [place]. It has not been cleared or [...] performance characteris tics have been determined by [employer]. It has not been cleared or approved by the U.S. Food and Drug Administrat ion. This assay has been validated pursuant to the CLIA regulations and is used for clinical purposes. Test Performed by [facility], [facility], [address] [place], [place] Fish Ramirez M.D., Ph.D., Director of Laboratorie s , CLIA [id number] TEST PERFORMED AT: , Ordering Provider: YURI TRAN Report Released Date/Time: Jun 16, 2024 03:59 PM Reporting Lab: [facility] [address] [facility] [address] Performing Lab: [facility] [address] [address] [facility] ANAPLASM A AND EHRLICHI A AB [...] performance characteris tics have been determined by [place]. It has not been cleared or [...] performance characteris tics have been determined by [employer] [place] It has not been cleared or approved by the U.S. Food and Drug Administrat ion. This assay has been validated pursuant to the CLIA regulations and is used for clinical purposes. Test Performed by [facility], [facility] [place], [address] [place] Fish Ramirez M.D., Ph.D., Director of Laboratorie s , CLIA [id number] TEST PERFORMED AT: , Ordering Provider: YURI TRAN Report Released Date/Time: Jun 16, 2024 03:59 PM Reporting Lab: [facility] [address] [facility] [address] Performing Lab: [facility] [address] [address] [facility] ANAPLASM A AND EHRLICHI A AB [...] performance characteris tics have been determined by [place]. It has not been cleared or [...] performance characteris tics have been determined by [place]. It has not been cleared or approved by the U.S. Food and Drug Administrat ion. This assay has been validated pursuant to the CLIA regulations and is used for clinical purposes. Test Performed by [facility], [facility] [place], [address] [place] Fish Ramirez M.D., Ph.D., Director of Laboratorie s , [place] [id number] TEST PERFORMED AT: , Ordering Provider: YURI TRAN Report Released Date/Time: Jun 16, 2024 03:59 PM Reporting Lab: [facility] [address] [facility] [address] Performing Lab: [facility] [address] [address] [facility] ANAPLASM A AND EHRLICHI A AB [...] performance characteris tics have been determined by [employer] [place], [place]. It has not been cleared or [...] performance characteris tics have been determined by [facility] [place]. It has not been cleared or approved by the U.S. Food and Drug Administrat ion. This assay has been validated pursuant to the CLIA regulations and is used for clinical purposes. Test Performed by [facility], [facility] [place], [address] [place] Fish Ramirez M.D., Ph.D., Director of Laboratorie s , CLIA [id number] TEST PERFORMED AT: , Ordering Provider: YURI TRAN Report Released Date/Time: Jun 16, 2024 03:59 PM Reporting Lab: [facility] [address] [facility] [address] Performing Lab: [facility] [address] [address] [facility] ANAPLASM A AND EHRLICHI A AB [...] performance characteris tics have been determined by [place]. It has not been cleared or [...] performance characteris tics have been determined by [employer] [place]. It has not been cleared or approved by the U.S. Food and Drug Administrat ion. This assay has been validated pursuant to the CLIA regulations and is used for clinical purposes. Test Performed by [facility] [place], [employer] [facility], [address] [place] Fish Ramirez M.D., Ph.D., Director of Laboratorie s , CLIA [id number] TEST PERFORMED AT: , Ordering Provider: YURI TRAN Report Released Date/Time: Jun 16, 2024 03:59 PM Reporting Lab: [facility] [address] [facility] [address] Performing Lab: [facility] [address] [address] [facility] ANAPLASM A AND EHRLICHI A AB [...] performance characteris tics have been determined by [place]. It has not been cleared or [...] performance characteris tics have been determined by [employer] [place]. It has not been cleared or approved by the U.S. Food and Drug Administrat ion. This assay has been validated pursuant to the CLIA regulations and is used for clinical purposes. Test Performed by [facility], [employer] [facility], [address] [place] [address] Fish Ramirez M.D., Ph.D., Director of Laboratorie s , CLIA [id number] TEST PERFORMED AT: , Ordering Provider: YURI TRAN Report Released Date/Time: Jun 16, 2024 03:59 PM Reporting Lab: [address] [address] Performing Lab: [facility] [address] BASIC METABOLI C PANEL (fasting ) UREA NITROGEN [MASS/VOLU ME] IN SERUM OR PLASMA 11 mg/dL 7 - 25 06/17 Specimen Type: SERUM No comment entered. Ordering Provider: YURI TRAN Report Released Date/Time: Jun 16, 2024 03:53 PM Reporting Lab: [facility] [address] [facility] [address] Performing Lab: [address] [address] [facility] BASIC METABOLI C PANEL (fasting ) GLUCOSE [MASS/VOLU ME] IN SERUM OR PLASMA 86 mg/dL 65 - 100 06/17 Specimen Type: SERUM No comment entered. Ordering Provider: YURI TRAN Report Released Date/Time: Jun 16, 2024 03:53 PM Reporting Lab: [facility] [place] [facility] [address] [facility] [address] Performing Lab: [facility] [place] [facility] [address] [facility] [address] [facility] BASIC METABOLI C PANEL (fasting ) SODIUM [MOLES/VOL UME] IN SERUM OR PLASMA 140 mmol/L 135 - 145 06/17 Specimen Type: SERUM No comment entered. Ordering Provider: YURI TRAN Report Released Date/Time: Jun 16, 2024 03:53 PM Reporting Lab: [facility] [place] [address] [address] Performing Lab: [facility] [place] [address] [address] [facility] BASIC METABOLI C PANEL (fasting ) POTASSIUM [MOLES/VOL UME] IN SERUM OR PLASMA 5.3 mmol/L 3.5 - 5.0 06/17 H Specimen Type: SERUM No comment entered. Ordering Provider: YURI TRAN Report Released Date/Time: Jun 16, 2024 03:53 PM Reporting Lab: [facility] [place] [address] [address] Performing Lab: [facility] [place] [facility] [address] [facility] [address] [facility] BASIC METABOLI C PANEL (fasting ) CHLORIDE [MOLES/VOL UME] IN SERUM OR PLASMA 105 mmol/L 100 - 110 06/17 Specimen Type: SERUM No comment entered. Ordering Provider: YURI TRAN Report Released Date/Time: Jun 16, 2024 03:53 PM Reporting Lab: [facility] [place] [address] [address] Performing Lab: [facility] [place] [address] [address] [facility] BASIC METABOLI C PANEL (fasting ) CARBON DIOXIDE, TOTAL [MOLES/VOL UME] IN SERUM OR PLASMA 29 meq/L 20 - 30 06/17 Specimen Type: SERUM No comment entered. Ordering Provider: YURI TRAN Report Released Date/Time: Jun 16, 2024 03:53 PM Reporting Lab: [facility] [address] [address] Performing Lab: [facility] [address] [address] [facility] BASIC METABOLI C PANEL (fasting ) CALCIUM [MASS/VOLU ME] IN SERUM OR PLASMA 10.5 mg/dL 8.5 - 10.2 06/17 H Specimen Type: SERUM No comment entered. Ordering Provider: YURI TRAN Report Released Date/Time: Jun 16, 2024 03:53 PM Reporting Lab: [facility] [address] [address] Performing Lab: [facility] [address] [address] [facility] BASIC METABOLI C PANEL (fasting ) CREATININE [MASS/VOLU ME] IN SERUM OR PLASMA 1.00 mg/dL 0.50 - 1.40 06/17 Specimen Type: SERUM No comment entered. Ordering Provider: YURI TRAN Report Released Date/Time: Jun 16, 2024 03:53 PM Reporting Lab: [facility] [address] [address] Performing Lab: [facility] [address] [facility] BASIC METABOLI C PANEL (fasting ) GLOMERULAR FILTRATION RATE/1.73 SQ M.PREDICTE D [VOLUME RATE/AREA] IN SERUM, PLASMA OR BLOOD BY CREATININE -BASED FORMULA (CKD-EPI 2020) >90mL/mi n 60 06/17 Specimen Type: SERUM No comment entered. Ordering Provider: YURI TRAN Report Released Date/Time: Jun 16, 2024 03:53 PM Reporting Lab: [facility] [address] [facility] [address] Performing Lab: [facility] [address] [facility] [address] [facility] CBC LEUKOCYTES [#/VOLUME] IN BLOOD BY AUTOMATED COUNT 4.03 10*3/uL 4.50 - 11.00 06/17 L Specimen Type: BLOOD No comment entered. Ordering Provider: YURI TRAN Report Released Date/Time: Jun 16, 2024 03:53 PM Reporting Lab: [facility] [address] [facility] [address] Performing Lab: [facility] [address] [facility] [address] [facility] [facility] CBC ERYTHROCYT ES [#/VOLUME] IN BLOOD BY AUTOMATED COUNT 5.18 10*6/uL 4.23 - 5.66 06/17 Specimen Type: BLOOD No comment entered. Ordering Provider: YURI TRAN Report Released Date/Time: Jun 16, 2024 03:53 PM Reporting Lab: [facility] [address] [facility] [address] Performing Lab: [facility] [place] [facility] [address] [facility] [address] [facility] [place] CBC HEMOGLOBIN [MASS/VOLU ME] IN BLOOD 15.6 g/dL 12.8 - 17 06/17 Specimen Type: BLOOD No comment entered. Ordering Provider: YURI TRAN Report Released Date/Time: Jun 16, 2024 03:53 PM Reporting Lab: [facility] [address] [facility] [address] Performing Lab: [facility] [address] [facility] [address] [facility] [place] [facility] CBC HEMATOCRIT [VOLUME FRACTION] OF BLOOD BY AUTOMATED COUNT 45.8 39.2 - 50.4 06/17 Specimen Type: BLOOD No comment entered. Ordering Provider: YURI TRAN Report Released Date/Time: Jun 16, 2024 03:53 PM Reporting Lab: [facility] [place] [facility] [address] [facility] [address] Performing Lab: [facility] [address] [facility] [address] [facility] [place] [facility] CBC MCV [ENTITIC VOLUME] BY AUTOMATED COUNT 88.4 fL 82 - 99 06/17 Specimen Type: BLOOD No comment entered. Ordering Provider: YURI TRAN Report Released Date/Time: Jun 16, 2024 03:53 PM Reporting Lab: [facility] [place] [facility] [address] [facility] [address] Performing Lab: [facility] [place] [facility] [address] [facility] [address] [facility] [place] [facility] CBC MCHC [MASS/VOLU ME] BY AUTOMATED COUNT 34.1 g/dL 30.8 - 35.1 06/17 Specimen Type: BLOOD No comment entered. Ordering Provider: YURI TRAN Report Released Date/Time: Jun 16, 2024 03:53 PM Reporting Lab: [facility] [place] [facility] [address] [facility] [address] Performing Lab: [facility] [place] [facility] [address] [facility] [address] [facility] [place] [facility] CBC PLATELETS [#/VOLUME] IN BLOOD BY AUTOMATED COUNT 196 10*3/uL 140 - 360 06/17 Specimen Type: BLOOD No comment entered. Ordering Provider: YURI TRAN Report Released Date/Time: Jun 16, 2024 03:53 PM Reporting Lab: [facility] [place] [facility] [address] [facility] [address] Performing Lab: [facility] [place] [facility] [address] [facility] [address] [facility] [place] CBC ERYTHROCYT E DISTRIBUTI ON WIDTH [RATIO] BY AUTOMATED COUNT 12.2 12.0 - 16.0 06/17 Specimen Type: BLOOD No comment entered. Ordering Provider: YURI TRAN Report Released Date/Time: Jun 16, 2024 03:53 PM Reporting Lab: [address] [address] Performing Lab: [address] [address] [facility] CBC MCH [ENTITIC MASS] BY AUTOMATED COUNT 30.1 pg 26.2 - 32.6 06/17 Specimen Type: BLOOD No comment entered. Ordering Provider: YURI RTAN Report Released Date/Time: Jun 16, 2024 03:53 PM Reporting Lab: [address] [address] Performing Lab: [address] [address] [facility] LYME SEROLOGY PANEL BORRELIA BURGDORFER I [id number] [...] of the panel were validated at the [facility]. Results are considered [...] Jun 16, 2024 03:53 PM Reporting Lab: [facility] [address] [facility] [facility] [address] Performing Lab: [facility] [address] [facility] [address] [facility] LYME SEROLOGY PANEL BORRELIA BURGDORFER I [...] of the panel were validated at the [facility]. Results are considered positive [...] Jun 16, 2024 03:53 PM Reporting Lab: [facility]TR[facility] [address] [facility] [address] Performing Lab: [facility] [address] [facility] [address] [facility] SED RATE, AUTOMATE D ERYTHROCYT E SEDIMENTAT ION RATE BY WESTERGREN METHOD <1mm/h 0 - 15 06/17 Specimen Type: BLOOD No comment entered. Ordering Provider: YURI TRAN Report Released Date/Time: Jun 16, 2024 03:53 PM Reporting Lab: [facility]N [facility] [address] Performing Lab: [facility] TRN [facility] [address] [facility]USE [facility] TESTOSTE MIRACLE, TOTAL (WHV) TESTOSTERO NE [MASS/VOLU ME] IN SERUM OR PLASMA 907.09 ng/dL 220.00 - 892.00 06/17 H Specimen Type: SERUM No comment entered. Ordering Provider: YURI TRAN Report Released Date/Time: Jun 16, 2024 04:10 PM Reporting Lab: [facility]ITALTR[facility] [address] Performing Lab: [facility] TRN [facility]USETS [address] [address] [facility]N [facility] BASIC METABOLI C PANEL (fasting ) UREA NITROGEN [MASS/VOLU ME] IN SERUM OR PLASMA 13 mg/dL 7 - 25 05/21 Specimen Type: SERUM No comment entered. Ordering Provider: SHE WILKERSON Report Released Date/Time: May 02, 2023 11:13 AM Reporting Lab: [facility]ITALTRN [facility] [address] Performing Lab: [facility] [place] [facility] [address] [facility] [address] [place] [facility] [place] [facility] BASIC METABOLI C PANEL (fasting ) GLUCOSE [MASS/VOLU ME] IN SERUM OR PLASMA 93 mg/dL 65 - 100 05/21 Specimen Type: SERUM No comment entered. Ordering Provider: SHE WILKERSON Report Released Date/Time: May 02, 2023 11:13 AM Reporting Lab: [place] [facility] [place] [facility] [address] [facility] [address] Performing Lab: [place] [facility] [place] [facility] [address] [facility] [address] [facility] [place] [facility] BASIC METABOLI C PANEL (fasting ) SODIUM [MOLES/VOL UME] IN SERUM OR PLASMA 142 mmol/L 135 - 145 05/21 Specimen Type: SERUM No comment entered. Ordering Provider: SHE WILKERSON Report Released Date/Time: May 02, 2023 11:13 AM Reporting Lab: [facility] [place] [facility] [address] [facility] [address] Performing Lab: [place] [facility] [place] [facility] [address] [facility] [address] [facility] [place] [facility] BASIC METABOLI C PANEL (fasting ) POTASSIUM [MOLES/VOL UME] IN SERUM OR PLASMA 3.9 mmol/L 3.5 - 5.0 05/21 Specimen Type: SERUM No comment entered. Ordering Provider: SHE WILKERSON Report Released Date/Time: May 02, 2023 11:13 AM Reporting Lab: [place] [facility] [place] [facility] [address] [facility] [address] Performing Lab: [place] [facility] [place] [facility] [address] [facility] [address] [facility] [place] [facility] BASIC METABOLI C PANEL (fasting ) CHLORIDE [MOLES/VOL UME] IN SERUM OR PLASMA 107 mmol/L 100 - 110 05/21 Specimen Type: SERUM No comment entered. Ordering Provider: SHE WILKERSON Report Released Date/Time: May 02, 2023 11:13 AM Reporting Lab: [facility] [place] [facility] [address] [facility] [address] Performing Lab: [facility] [place] [facility] [address] [facility] [address] [facility] [facility] BASIC METABOLI C PANEL (fasting ) CARBON DIOXIDE, TOTAL [MOLES/VOL UME] IN SERUM OR PLASMA 28 meq/L 20 - 30 05/21 Specimen Type: SERUM No comment entered. Ordering Provider: SHE WILKERSON Report Released Date/Time: May 02, 2023 11:13 AM Reporting Lab: [facility] [place] [facility] [address] [facility] [address] Performing Lab: [place] [facility] [place] [facility] [address] [facility] [address] [facility] [place] [facility] BASIC METABOLI C PANEL (fasting ) CREATININE [MASS/VOLU ME] IN SERUM OR PLASMA 1.07 mg/dL 0.50 - 1.40 05/21 Specimen Type: SERUM No comment entered. Ordering Provider: SHE WILKERSON Report Released Date/Time: May 02, 2023 11:13 AM Reporting Lab: [facility] [place] [facility] [address] [facility] [address] Performing Lab: [facility] [place] [address] [address] [facility] [facility] BASIC METABOLI C PANEL (fasting ) GLOMERULAR FILTRATION RATE/1.73 SQ M.PREDICTE D [VOLUME RATE/AREA] IN SERUM, PLASMA OR BLOOD BY CREATININE -BASED FORMULA (CKD-EPI 2020) 88 mL/min 60 05/21 Specimen Type: SERUM No comment entered. Ordering Provider: SHE WILKERSON Report Released Date/Time: May 02, 2023 11:13 AM Reporting Lab: [facility] [place] [facility] [address] [facility] [address] Performing Lab: [facility] [place] [address] [address] [facility] [place] [facility] HEPATITI S Be ANTIBODY (QU) HEPATITIS B VIRUS E AB [PRESENCE] IN SERUM Nonreact michelle 05/21 Specimen Type: SERUM Comment: Reference range: Nonreactive For additional information , please refer to https://Patch of Land cation.[employer] tdiagnostic byyd/faq/F AQ202 (This link is being provided for information al/ educational purposes only.) Test Performed by [employer] [facility], [address] [place] [address] Fish Ramirez M.D., Ph.D., Director of Laboratorie s , CLIA [id number] TEST PERFORMED AT: , Ordering Provider: SHE WILKERSON Report Released Date/Time: May 02, 2023 11:13 AM Reporting Lab: [facility]USE[address] [address] Performing Lab: [facility] [address] [address] [facility] LIPID PANEL FASTING CHOLESTERO L [MASS/VOLU ME] IN SERUM OR PLASMA 164 mg/dL 05/21 Specimen Type: SERUM No comment entered. Ordering Provider: SHE WILKERSON Report Released Date/Time: May 02, 2023 11:13 AM Reporting Lab: [facility] [address] [facility] [address] Performing Lab: [facility] [address] [facility] [address] [facility] [place] [facility] LIPID PANEL FASTING TRIGLYCERI DE [MASS/VOLU ME] IN SERUM OR PLASMA 42 mg/dL 0 - 150 05/21 Specimen Type: SERUM No comment entered. Ordering Provider: SHE WILKERSON Report Released Date/Time: May 02, 2023 11:13 AM Reporting Lab: [facility] MASSUSE[address] [address] Performing Lab: [facility] [place] [facility] [address] [facility] [address] [facility] LIPID PANEL FASTING CHOLESTERO L IN LDL [MASS/VOLU ME] IN SERUM OR PLASMA BY CALCULATIO N 109 mg/dL 0 - 129 05/21 Specimen Type: SERUM No comment entered. Ordering Provider: SHE WILKERSON Report Released Date/Time: May 02, 2023 11:13 AM Reporting Lab: [facility] [place] [facility] [address] [facility] [address] Performing Lab: [facility] [place] [facility] [address] [facility] [address] [facility] [place] [facility] LIPID PANEL FASTING CHOLESTERO L.TOTAL/CH OLESTEROL IN HDL [MASS RATIO] IN SERUM OR PLASMA 3.5 05/21 Specimen Type: SERUM No comment entered. Ordering Provider: SHE WILKERSON Report Released Date/Time: May 02, 2023 11:13 AM Reporting Lab: [facility] [place] [facility] [address] [facility] [address] Performing Lab: [facility] [place] [facility] [address] [facility] [address] [facility] [place] [facility] LIPID PANEL FASTING CHOLESTERO L IN HDL [MASS/VOLU ME] IN SERUM OR PLASMA 47 mg/dL 40 - 60 05/21 Specimen Type: SERUM No comment entered. Ordering Provider: SHE WILKERSON Report Released Date/Time: May 02, 2023 11:13 AM Reporting Lab: [facility] [place] [facility] [address] [facility] [address] Performing Lab: [facility] [place] [facility] [address] [facility] [address] [facility] [place] [facility] LIVER FUNCTION PROTEIN [MASS/VOLU ME] IN SERUM OR PLASMA 6.7 g/dL 6.0 - 8.3 05/21 Specimen Type: SERUM No comment entered. Ordering Provider: SHE WILKERSON Report Released Date/Time: May 02, 2023 11:13 AM Reporting Lab: [facility] [place] [facility] [address] [facility] [address] Performing Lab: [facility] [place] [facility] [address] [facility] [address] [facility] [place] [facility] LIVER FUNCTION ALBUMIN [MASS/VOLU ME] IN SERUM OR PLASMA 4.1 g/dL 3.5 - 5.0 05/21 Specimen Type: SERUM No comment entered. Ordering Provider: SHE WILKERSON Report Released Date/Time: May 02, 2023 11:13 AM Reporting Lab: [facility] [place] [facility] [address] [facility] [address] Performing Lab: [facility] [place] [facility] [address] [facility] [address] [place] [facility] [place] [facility] LIVER FUNCTION ALKALINE PHOSPHATAS E [ENZYMATIC ACTIVITY/V OLUME] IN SERUM OR PLASMA 49 U/L 40 - 150 05/21 Specimen Type: SERUM No comment entered. Ordering Provider: SHE WILKERSON Report Released Date/Time: May 02, 2023 11:13 AM Reporting Lab: [facility] [place] [facility] [address] [facility] [address] Performing Lab: [facility] [place] [facility] [address] [facility] [address] [facility] [place] [facility] LIVER FUNCTION ASPARTATE AMINOTRANS FERASE [ENZYMATIC ACTIVITY/V OLUME] IN SERUM OR PLASMA 21 U/L 5 - 34 05/21 Specimen Type: SERUM No comment entered. Ordering Provider: SHE WILKERSON Report Released Date/Time: May 02, 2023 11:13 AM Reporting Lab: [facility] [place] [facility] [address] [facility] [address] Performing Lab: [facility] [place] [facility] [address] [facility] [address] [facility] [place] [facility] LIVER FUNCTION ALANINE AMINOTRANS FERASE [ENZYMATIC ACTIVITY/V OLUME] IN SERUM OR PLASMA 15 U/L 02/21 /2024 Specimen Type: SERUM No comment entered. Ordering Provider: SHE WILKERSONED Report Released Date/Time: May 02, 2023 11:13 AM Reporting Lab: [facility] [place] [facility] [address] [facility] [address] Performing Lab: [facility] [place] [facility] [address] [facility] [address] [facility] [place] [facility] LIVER FUNCTION BILIRUBIN. TOTAL [MASS/VOLU ME] IN SERUM OR PLASMA 0.5 mg/dL 0.2 - 1.2 05/21 Specimen Type: SERUM No comment entered. Ordering Provider: SHE WILKERSON Report Released Date/Time: May 02, 2023 11:13 AM Reporting Lab: [facility] [place] [facility] [address] [facility] [address] Performing Lab: [facility] [place] [facility] [address] [facility] [address] [facility] [place] [facility] Vital Signs Combined list of inpatient and outpatient Vital Signs from Department of Defense and Veterans Affairs, ranging from 12 months to all on record, depending upon the facility. Vital Sign Value Date Comments Source SYSTOLIC BLOOD PRESSURE 150 07/06/19 25 09:47:15 [facility] DIASTOLIC BLOOD PRESSURE 102 025 09:47:15 [facility] PULSE OXIMETRY 100 07/05/2024 09:47:15 [facility] TEMPERATURE 98 07/05/2024 09:47:15 [facility] PULSE 66 07/05/2024 09:47:15 [facility] RESPIRATION 18 07/05/2024 09:47:15 [facility] [place] SYSTOLIC BLOOD PRESSURE 151 06/17/19 25 15:26:53 [...] included; 2) Encounters from the Department of [facility] facilities going backup to 280 months. Location Location Details Encounter Type Encounter Number Reason For Visit Attending Provider ADM Date DC Date Status Disposition Source [facility] En[facility] [id number] 01/13 [facility] Encounter [id number] 01/21 [facility] Encounter [id number] ARI MCCARTY 01/21 [facility] OFF/OP EST MAY X REQ PHY/QHP [id number] Diagnos is: ICD-10- CM N50.812 Left testicu lar pain ERICH MIRAMONTES 01/21 [facility] En[facility] [id number] 01/22 [facility] OFFICE O/P EST LOW 20-29 MIN [id number] Diagnos is: ICD-10- CM I86.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 ERICH MIRAMONTES 01/22 [facility] OFFICE O/P EST LOW 20-29 MIN [id number] Diagnos is: ICD-10- CM M25.562 Pain in left knee FRANK WILKERSON MMED JAWED 01/27 [facility] En[facility] [id number] 03/05 [facility] En[facility] [id number] 03/07 [facility] En[facility] [id number] 03/17 [facility] En[facility] [id number] 04/16 [facility] En[facility] [id number] 04/16 [facility] En[facility] [id number] 05/07 [facility] OFF[facility] O/P EST MOD 30 MIN [id number] Diagnos is: ICD-10- CM F43.10 Post-tr aumatic stress disorde r, unspeci fied FRANK WILKERSON MMED JAWED 05/21 [facility] En[facility] [id number] 06/25 [facility] THERAPEUTI C EXERCISES [id number] Diagnos is: ICD-10- CM M54.50 Low back pain, unspeci fied REBECA GATES 07/27 [facility] MANUAL THERAPY 1/ REGIONS [id number] Diagnos is: ICD-10- CM M54.50 Low back pain, unspeci fied Nikolay AMIN 08/04 [facility] THERAPEUTI C EXERCISES [id number] Diagnos is: ICD-10- CM M54.50 Low back pain, unspeci fied ELOISA,M CONCHIS 08/11 [facility] En[facility] [id number] 08/20 [facility] THERAPEUTI C EXERCISES [id number] Diagnos is: ICD-10- CM M54.50 Low back pain, unspeci fied REBECA GATES 09/03 [facility] En[facility] [id number] 09/10 [facility] En[facility] [id number] VALENTINA MORIN 09/10 [facility] En[facility] [id number] 10/06 [facility] En[facility] [id number] 10/16 [facility] Encounter [id number] 10/30 [facility] OFFICE O/P EST MOD 30 MIN [id number] Diagnos is: ICD-10- CM Z77.29 Contact with and exposur e to other hazardo us substan ryan FURCOLO,TI NA 11/16 [facility] En[facility] [id number] 11/29 [facility] En[facility] [id number] 03/04 [facility] [place] OFFICE O/P EST MOD 30 MIN [id number] Diagnos is: ICD-10- CM M54.50 Low back pain, unspeci fied FURCOLO,TI NA 03/30 [facility] Encounter [id number] 04/15 [facility] En[facility] [id number] 05/07 [facility] En[facility] [id number] 05/28 [facility] En[facility] [id number] 05/31 [facility] [place] Outpatient Encounter [id number] 06/08 [facility] [place] [facility] OFFICE O/P EST HI 40 MIN [id number] Diagnos is: ICD-10- CM Z77.29 Contact with and exposur e to other hazardo us substan ryan FURCOLO,TI NA 06/16 [facility] [place] [facility] Outpatient Encounter [id number] DENNIS CHAUDHARY 06/21 [facility] [place] [facility] [place] [facility] Outpatient Encounter [id number] 06/25 [facility] [place] [facility] [place] [facility] OFF/OP EST MAY X REQ PHY/QHP [id number] Diagnos is: ICD-10- CM R03.0 Elevate d blood-p ressure reading , w/o diagnos is of htn NEENADENNIS SAM Person 07/05 [facility] [place] [place] [facility] Outpatient Encounter [id number] 07/09 [facility] [place] Social History Combined list of available smoking, tobacco, and other social history from Department of Defense and Veterans Affairs facilities. Social History Type Response Date Comment Sourc e Tobacco smoking status NHIS VA-TOBACCO NEVER USED 11/17/2023 [facility] [place] History of tobacco use VA-TOBACCO NEVER USED 11/20/2022 [facility] History of tobacco use VA-TOBACCO NEVER USED 09/05/2021 [facility] History of tobacco use VA-TOBACCO NEVER USED 05/10/2020 [facility] History of tobacco use [place]-TOBACCO NEVER USED 01/07/2019 [facility] History of tobacco use LIFETIME NON-TOBACCO USER 07/24/2017 [facility] History of tobacco use LIFETIME NON-TOBACCO USER 07/15/2016 [facility] History of tobacco use LIFETIME NON-TOBACCO USER 09/21/2012 [facility] Plan of Care List of future care activities from Department of Veterans Affairs facilities. Additional future care activities may be listed in the Assessment and Plan section. Date/Time Care Activity Care Activity Detail Facili ty 12/16/2024 AMBULATORY - MEDICINE AMBULATORY - MEDICI NE [facility]
--- OUTSIDE RECORDS SUMMARY | 2024-07-10 13:44 | XMS_ITS | Encounter Summary ---
Author Name [facility] [place] [facility] [place] Address [address] [place] [address] Care Team Providers Care Hse Coordinator Name Role Phone MARC SHELL Primary Care [...] Name Patient's Relationship to Policy [facility] CE ORGANIZAT ION [facility] Sep 28, 2020 [id number] SHONDA BARLOW PATIENT [place] [place] [id number] PREFERRED PROVIDER ORGANIZAT ION (PPO) HEALT H NEW [facility] [place] July 29, 2022 [id number] [phone] SHONDA BARLOW PATIENT [facility] PREFERRED PROVIDER ORGANIZAT ION (PPO) HEALT H NEW [facility] [place] July 29, 2022 [id number] [phone] SHONDA BARLOW PATIENT UMR* PREFERRED PROVIDER ORGANIZAT ION (PPO) HEALT H NEW [facility] [place] July 29, 2022 [id number] [phone] ESTELASHONDA GORMAN PATIENT Selected Encounter This section includes the information on record at [place] for the Encounter. Date/Time Encounter Type Encounter Description Reason Provider Source Mar 30, 2024 08:30 AM OFFICE O/P EST MOD 30 MIN PRIMARY CARE/MEDICINE ICD-10-CM M54.50 Low back pain, unspecified FURCOLO,SHELL IHE Encounter Template Text not used by [place] Assessments - Encounter Diagnoses This section includes the primary and secondary diagnoses documented for the Encounter. Date/Time Primary/Secondary Diagnosis Diagnosis Name Provider Source Mar 30, 2024 09:12 AM PRIMARY Low back pain, unspecified FURCOLO,SHELL [facility] Plan of Treatment: Future Appointments (+ 6 months) and Future Tests (+/- 45 days) The Plan of Treatment section includes future care activities for the patient from all [place] [facility] This section includes future appointments and future orders which are active, pending or scheduled. Future Appointments This section includes appointments that were scheduled to occur 6 months from the date of the Encounter, up to a maximum of 20 appointments. The data comes from all [place] treatment facilities. Appointment Date/Time Appointment Type Appointme nt Facility Name Jun 16, 2024 03:30 PM AMBULATORY - MEDICINE [facility] Jul 05, 2024 09:00 AM [facility] Vital Signs: All taken on the encounter date This section contains inpatient and outpatient Vital Signs collected on the date of the Encounter. Date/Time Temperature Pulse Blood Pressure Respiratory Rate SP02 Pain Height Weight Body Mass Index Source Mar 30, 2024 08:22 AM 97.7 60 132/87 16 100 5 177 25 [facility] Social History: Smoking Status (Most current) and Tobacco Use (All prior to encounter date) This section includes the most current, and the historical, smoking and tobacco- related health factors from the [place] facility where the Encounter took place. Current Smoking Status This section includes the most current smoking, or tobacco-related health factor, from the [place] facility where the Encounter took place. Date/Time Current Smoking Status Comment Nishant valderrama Nov 17, 2023 09:00 AM [place]-TOBACCO NEVER USED [facility] Tobacco Use History This section includes a history of the smoking, or tobacco-related health factors, that were collected on or before the date of the Encounter. The data comes from the [place] facility where the Encounter took place. Date/Time Smoking Status/Tobacco Use Comment F acility Nov 20, 2022 01:00 PM [facility]-TOBACCO NEVER USED [facility] [place] [facility] Sep 05, 2021 01:00 PM VA-TOBACCO NEVER USED [facility] [place] [facility] May 10, 2020 09:00 AM VA-TOBACCO NEVER USED [facility] [place] [facility] Jan 07, 2019 10:45 AM VA-TOBACCO NEVER USED [facility] [place] [facility] Jul 24, 2017 12:53 PM LIFETIME NON-TOBACCO USER [facility] [place] [facility] Jul 15, 2016 09:35 AM LIFETIME NON-TOBACCO USER [facility] [place] [facility] Sep 21, 2012 02:42 PM LIFETIME NON-TOBACCO USER [place] [facility] [place] [facility] Radiology Reports: +/- 30 days of [...] the Encounter. The data comes from all [place] treatment facilities. Date/Time Radiology Report Provider Source Mar 22, 2024 11:00 AM ABDOMINAL ULTRASOU ND: SHONAD BARLOW [id number] -[phone] M Exm Date: MAR 22, 2024@11:00 Req Phys: SHELL TRAN Loc: CWM/NO/PACT EIGHT (Req'g Loc) Img Loc: ULTRASOUND Service: Unknown [place] [facility] [place] [facility] [address] (Case 17 COMPLETE) ULTRASOUND ABDOMEN LIMITED (US Detailed) CPT:80280 Reason for Study: liver lesion follow-up Clinical History: Report Status: Verified Date Reported: MAR 22, 2024 Date Verified: MAR 22, 2024 Log Deck Tender E-Sig:/ES/MARICEL CONWAY Report: ECHO EXAM OF ABDOMEN [...] Primary Interpreting Staff: MARICEL CONWAY, Staff Physician (Log Deck Tender) /MARICEL SINGH [facility] Encounter Notes: All associated encounter notes [...] Practical Nurse Signed: 05/05/2024 13:37 CECIL MORALES [facility] [facility] [place] [facility] Mar 30, 2024 08:29 AM PHYSICIAN [...] Primary Care Provider: GABI Specialists: VISHAL Flores [facility] Specialists: huy GRAHAM == HISTORY == PERIOD OF SERVICE - [facility] CONNECTED % - 90 SC Percent: 90% Rated Disabilities: 2ND DEGREE RODRIGUEZ (0%-SC) 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, +ANIBAL- burn pits == HISTORY OF PRESENT ILLNESS == recurrent episodes 1 month ago- had fast heart rate and sweaty sensation- happens every few months or every 6 motnhs, has had holter montiors- never capture the event. has gone to ER in past- negative for [place] bilat lower back pain- started prior to [...] Gynecomastia 8. Left knee pain (SNOMED CT [id number]) 9. Cough variant asthma 10. Postconcussion syndrome 11. Low back pain (SNOMED CT 670443386) 12. 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 No significant change in [...] D.O. PHYSICIAN Signed: 03/30/2024 09:12 SHELL TRAN [facility] [place] [facility] Mar 22, 2024 03:22 PM LETTERS: LOCAL TITLE: PATIENT LETTER (T) STANDARD TITLE: LETTERS DATE OF NOTE: MAR 22, 2024@15:22 ENTRY DATE: MAR 22, 2024@15:22:07 AUTHOR: SHELL TRAN EXP COSIGNER: URGENCY: STATUS: COMPLETED DEPARTMENT OF [facility] Toll Free Number Primary Care Telephone Assistance can be reached at extension [phone] [facility] scheduling can be reached at extension [phone] [facility] scheduling can be reached at ext [phone] SHONDA NAOMI [address], [address] [place], STABLE benign findings on liver ultrasound- no [...] May 2020. Sincerely, Your Primary Care Team [facility] [address] [address] [place] [address] [phone] [facility] [address] [place] [address] [place] [address] [phone] [facility] [address] [facility] [place] [address] [place] [address] [facility]
--- OUTSIDE RECORDS SUMMARY | 2024-07-10 13:44 | XMS_ITS ---
Author Name [facility] [place] Address [address] [place] [address] Care Team Providers Care Repair Technician Name Role Phone SHELL TRAN Primary Care [...] Name Patient's Relationship to Policy [facility] CE ORGANIZAT ION [facility] Sep 28, 2020 [id number] SHONDA BARLOW PATIENT OPTUM RX [id number] PREFERRED PROVIDER ORGANIZAT ION (PPO) HEALT H [place] [facility] [place] July 29, 2022 [id number] [phone] ESTELASHERIF SHONDA PATIENT UMR PREFERRED PROVIDER ORGANIZAT ION (PPO) HEALT H [facility] [place] July 29, 2022 [id number] [phone] ESTELASHERIF SHONDA PATIENT UMR* PREFERRED PROVIDER ORGANIZAT ION (PPO) HEALT H [facility] [place] July 29, 2022 [id number] [phone] TURNER PATIENT Selected Encounter This section includes the information on record at [place] for the Encounter. Date/Time Encounter Type Encounter Description Reason Provider Source Jul 05, 2024 09:00 AM OFF/OP EST JULY X REQ PHY/QHP PRIMARY CARE/MEDICINE ICD-10-CM R03.0 Elevated blood-pressure reading, w/o diagnosis of htn NOEL CHAUDHARY IHE Encounter Template Text not used by [place] Assessments - Encounter Diagnoses This section includes the primary and secondary diagnoses documented for the Encounter. Date/Time Primary/Secondary Diagnosis Diagnosis Name Provider Source Jul 05, 2024 10:02 AM PRIMARY Elevated blood-pressure reading, w/o diagnosis of htn NOEL CHAUDHARY [facility] Plan of Treatment: Future Appointments (+ 6 months) and Future Tests (+/- 45 days) The Plan of Treatment section includes future care activities for the patient from all [place] treatmentfacilities. This section includes future appointments and future orders which are active, pending or scheduled. Future Appointments This section includes appointments that were scheduled to occur 6 months from the date of the Encounter, up to a maximum of 20 appointments. The data comes from all [place] treatment facilities. Appointment Date/Time Appointment Type Appointme nt Facility Name Dec 16, 2024 09:00 AM AMBULATORY - MEDICINE [facility] Lab Results: +/- 30 days of the encounter This section includes the Chemistry and Hematology Lab Results on record with [place] for the patient. Radiology Reports and Pathology Reports are provided separately, in subsequent sections. Lab Results This section contains the Chemistry/Hematology Results that were resulted 30 days before or 30 daysafter the date of the Encounter. Date/Time Source Result Type Result - Unit Interpretation Reference Range Specimen Type Comment Jun 17, 2024 09:26 AM [facility] LYME SEROLOGY PANEL SERUM Specimen Type: SERUM Comment: The LYME SEROLOGY PANEL was performed using the FDA-approved Carter MENDEZ Borrelia burdorferi modified two-tier test system. This modified methodology uses a second EIA in place of a western immunoblot assay, which the FDA has determined is substantially equivalent to or better than standard two-tier testing using western blot. Supplemental testing with a second EIA meets CDC guidelines for Lyme disease testing. Performance characteristics of the panel were validated at the [place] [facility]. Results are considered positive [...] health departments, if applicable. Ordering Provider: SHELL TRAN Report Released Date/Time: Jun 16, 2024 03:53 PM Reporting Lab: [facility] [address] [facility] [address] Performing Lab: [facility] [address] [facility] [address] TIER 1 LYME SCREENING EIA Negative Negat michelle LYME AB FINAL INTERPRETATION Negative Ne gative Jun 17, 2024 09:26 AM [facility] ANAPLASMA AND EHRLICHIA AB PANEL SERUM [...] analytical performance characteristics have been determined by [facility], [place], [place]. It has not been cleared or [...] analytical performance characteristics have been determined by [employer] [place], [place]. It has not been cleared or approved by the U.S. Food and Drug Administration. This assay has been validated pursuant to the CLIA regulations and is used for clinical purposes. Test Performed by [facility], [facility], [address] [place] [address] Fish Ramirez M.D., Ph.D., Director of Laboratories , CLIA [id number] TEST PERFORMED AT: , Ordering Provider: SHELL TRAN Report Released Date/Time: Jun 16, 2024 03:59 PM Reporting Lab: [facility] [address] [facility] [address] Performing Lab: [facility] [address] [address] E. chaffeensis Ab IgG <1:64 SEE BELOW E. chaffeensis Ab IgM <1:20 SEE BELOW A.phagocytophilum Ab IgG <1:64 SEE BEL OW A.phagocytophilum Ab IgM <1:20 SEE BEL OW EHRLICHIA CHAFFEENSIS AB INTER SEE NOTE A. phagocytophilum inter SEE NOTE Jun 17, 2024 09:26 AM [facility] TESTOSTERONE, TOTAL (WHV) SERUM Specimen Type : SERUM No comment entered. Ordering Provider: SHELL TRAN Report Released Date/Time: Jun 16, 2024 04:10 PM Reporting Lab: [facility] [address] [facility] [address] Performing Lab: [facility] [place] [facility] [address] [facility] [address] TESTOSTERONE, TOTAL (WHV) 907.09 ng/dL H 2 20.00-892.00 Jun 17, 2024 09:26 AM [facility] SED RATE, AUTOMATED BLOOD Specimen Type: BLOO D No comment entered. Ordering Provider: SHELL TRAN Report Released Date/Time: Jun 16, 2024 03:53 PM Reporting Lab: [facility] [place] [address] [address] Performing Lab: [facility] [address] [address] SED RATE, AUTOMATED <1 mm/h 0-15 Jun 17, 2024 09:26 AM [facility] CBC BLOOD Specimen Type: BLOOD No comment entered. Ordering Provider: SHELL TRAN Report Released Date/Time: Jun 16, 2024 03:53 PM Reporting Lab: [facility] [address] [address] Performing Lab: [facility] [address] [address] WBC 4.03 10*3/uL L 4.50-11.00 RBC 5.18 10*6/uL 4.23-5.66 HGB 15.6 g/dL 12.8-17 HCT 45.8 39.2-50.4 MCV 88.4 fL 82-99 MCHC 34.1 g/dL 30.8-35.1 PLT 196 10*3/uL 140-360 RDW-CV 12.2 12.0-16.0 MCH 30.1 pg 26.2-32.6 Jun 17, 2024 09:26 AM [facility] BASIC METABOLIC PANEL (fasting) SERUM Specime n Type: SERUM No comment entered. Ordering Provider: SHELL TRAN Report Released Date/Time: Jun 16, 2024 03:53 PM Reporting Lab: [facility] [address] [address] Performing Lab: [place] [facility] [place] [facility] [address] [facility] [address] UREA NITROGEN 11 mg/dL 7-25 GLUCOSE 86 [...] Pain Height Weight Body Mass Index Source Jul 05, 2024 09:47 AM 138/92 [place] [facility] [place] [facility] Jul 05, 2024 09:47 AM 152/82 [place] [facility] [facility] Jul 05, 2024 09:47 AM 98 66 150/102 18 [address] [place] [address] Social History: Smoking Status (Most current) and Tobacco Use (All prior to encounter date) This section includes the most current, and the historical, smoking and tobacco- related health factors from the [place] facility where the Encounter took place. Current Smoking Status This section includes the most current smoking, or tobacco-related health factor, from the [place] facility where the Encounter took place. Date/Time Current Smoking Status Comment Nishant valderrama Nov 17, 2023 09:00 AM [place]-TOBACCO NEVER USED [facility] Tobacco Use History This section includes a history of the smoking, or tobacco-related health factors, that were collected on or before the date of the Encounter. The data comes from the [place] facility where the Encounter took place. Date/Time Smoking Status/Tobacco Use Comment Jeremiah mora Nov 20, 2022 01:00 PM VA-TOBACCO NEVER USED [place] [facility] [place] [facility] Sep 05, 2021 01:00 PM VA-TOBACCO NEVER USED [place] [facility] [place] [facility] May 10, 2020 09:00 AM VA-TOBACCO NEVER USED [place] [facility] [place] [facility] Jan 07, 2019 10:45 AM VA-TOBACCO NEVER USED [place] [facility] [place] [facility] Jul 24, 2017 12:53 PM LIFETIME NON-TOBACCO USER [place] [facility] [place] [facility] Jul 15, 2016 09:35 AM LIFETIME NON-TOBACCO USER [place] [facility] [place] [facility] Sep 21, 2012 02:42 PM LIFETIME NON-TOBACCO USER [place] [facility] [facility] Encounter Notes: All associated encounter notes This section contains the clinical notes associated to the Encounter. Date/Time Encounter Note(s) Provider Source Jul 05, 2024 09:48 AM PRIMARY CARE NURSI NG OUTPATIENT NOTE: LOCAL TITLE: NURSING/PRIMARY CARE/AMB-OPT.CARE NOTE STANDARD TITLE: PRIMARY CARE NURSING OUTPATIENT NOTE DATE OF NOTE: JUL 05, 2024@09:48 ENTRY DATE: JUL 05, 2024@09:48:16 AUTHOR: ISMAEL CHAUDHARY COSIGNER: URGENCY: STATUS: COMPLETED Temperature: 98 F [36.7 C] (07/05/2024 09:47) Pulse: 66 (07/05/2024 09:47) Respiration: 18 (07/05/2024 09:47) Blood Pressure: 138/92 (07/05/2024 09:47) Height: 70 in [177.8 cm] (05/21/2023 13:11) Weight: 180 lb [81.65 kg] (06/16/2024 15:26) Pain: 3 (06/16/2024 15:26) Allergies: Patient has answered NKA F: Nursing Clinic/Blood pressure check D: Crofton presents to the Primary care clinic for a blood pressure check per PCP. Vet states on 07/03/24 he woke up in the middle of the night with chest pain and had an elevated BP 154/109. He went to [facility] and had CO ruled out. Vet states it was attributed to GERD... Vet reports he has been taking the propranolol as prescribed. states he was prescribed HCTZ 25mg daily by [facility]. He has been taking this daily since 07/03/24 c/o vague ongoing abdominal pain to his RLQ and LLQ. Ongoing head pain. He states the migraine pain has gone away from the propranolol but he still has this vague head pain. He was asking about having a MRI of the brain. Crofton states since starting the medication he has been having vivid dreams. He states his MH has been ok and his PTSD is controlled at this time. BLOOD PRESSURE READINGS Reports home readings have been in the 150s Today in clinic 150/102 152/82 138/92 P = 66 BLOOD PRESSURE MEDICATIONS: Any changes or additions to allergies/adverse reactions. Any medication changes since last appointment. Patient reports adherence to medication regimen. Patient is currently prescribed blood pressure medication. Date of last dose: Approx. time of last dose: Diet: Active but less so. 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 FOLLOW-UP ACTIONS Refer to PCP. -vet c/o ongoing abdominal and headache pain. Requesting MRI of the brain.. -BP remains elevated despite current medications of propranolol and HCTZ 25mg daily. Daily Home BP checks Follow up as indicated. ER Precautions discussed to which vet verbalized understanding Patient verbalized understanding. Homelessness/Food Insecurity Screen: In the past 2 months, have you been living in stable housing that you own, rent, or stay in as part of a household? Yes - Living in stable housing. Are you worried or concerned that in the next 2 months you may NOT have stable housing that you own, rent, or stay in as part of a household? No - Not worried about housing near future The Crofton reports the following: Within the past 12 months, you worried whether your food would run out before you got money to buy more. Never true Within the past 12 months, the food you bought just didn't last and you didn't have money to get more. Never true Influenza Immunization: The patient has received the seasonal influenza vaccine for the current season at another location. Documented: INFLUENZA, UNSPECIFIED FORMULATION Historical Date Administered: Nov 30, 2023 Information Source: FROM PATIENT'S RECALL Comment: Reports he received through his work as a [employer] [place] police reserves commander COVID-19 Immunization: Refused Pfizer Monovalent COVID-19 vaccine Immunization: COVID-19 ([employer]), MRNA, LNP-S, PF, LINN-SUCROSE, 30 MCG/0.3 ML (AGES 12+ YEARS) Refusal Reason: PATIENT DECISION Patient refuses all immunization(s) in the COVID-19 group Date Documented: 07/05/24 09:49 Sexual Orientation: The patient thinks of their sexual orientation as: Straight or Heterosexual RHS Screen: RHS Screen Session Format: Face to Face Environmental Check Upon inquiry, the individual reports that the environment is safe to proceed. Informed Consent to Screen and Document The individual consents to proceed with screening. The individual consents to documentation of responses. PRIMARY SCREEN: In the past 12 months, how often did a current or former intimate partner (e.g., boyfriend, girlfriend, , , sexual partner): 1. Scream or curse at you Never 2. Insult or talk down to you Never 3. Threaten you with harm Never 4. Physically hurt you Never 5. Force or pressure you to have sexual contact against your will, or when you were unable to say no Never ?? The HITS tool (items 1-4 above) is [place] copyright protected by Leandro Toledo MD, and the user has full rights to use it throughout the [place] system. PRIMARY SCREEN RESULT: The Primary Screen is NEGATIVE. The individual answered never to all forms of IPV above (i.e., answered never to all 5 items) The individual accepts education and/or resources: Yes - Offered verbal universal education about IPV EDUCATION: The individual indicated readiness to learn. Education offered during this session as noted above. The individual indicated understanding by asking relevant questions and making appropriate comments. No barriers to learning were observed or identified. /shweta/ ISMAEL CHAUDHARY Registered Nurse Signed: 07/05/2024 10:01 ISMEAL CHAUDHARY [facility]
--- OUTSIDE RECORDS SUMMARY | 2024-07-10 13:44 | XMS_ITS ---
Author Name [facility] [place] Address [address] [place] [address] Care Team Providers Care Financial Systems Administrator Name Role Phone SHELL TRAN Primary Care [...] [facility] CE ORGANIZAT ION [facility] Sep 28, 2020 [id number] [phone] ESTELAVIANEYSHONDA VERGARA PATIENT OPTUM RX [id number] [id number] PREFERRED PROVIDER ORGANIZAT ION (PPO) [facility] [place] July 29, 2022 [id number] [phone] ESTELASHERIF SHONDA PATIENT UMR PREFERRED PROVIDER ORGANIZAT ION (PPO) HEALT H [facility] [place] July 29, 2022 [id number] [phone] ESTELAVIANEYSHONDA VERGARA PATIENT UMR* PREFERRED PROVIDER ORGANIZAT ION (PPO) HEALT H [facility] July 29, 2022 [id number] [phone] SHONDA BARLOW PATIENT Selected Encounter This section includes the information on record at [place] for the Encounter. Date/Time Encounter Type Encounter Description Reason Provider Source Jul 28, 2023 01:00 PM THERAPEUTIC EXERCISES PHYSICAL THERAPY ICD-10-CM M54.50 Low back pain, unspecified SUKHI NAIDU Chad Encounter Template Text not used by [place] Assessments - Encounter Diagnoses This section includes the primary and secondary diagnoses documented for the Encounter. Date/Time Primary/Secondary Diagnosis Diagnosis Name Provider Source Jul 28, 2023 04:33 PM PRIMARY Low back pain, unspecified KODYSUKHI [facility] Plan of Treatment: Future Appointments (+ 6 months) and Future Tests (+/- 45 days) The Plan of Treatment section includes future care activities for the patient from all [place] [facility]. This section includes future appointments and future orders which are active, pending or scheduled. Future Appointments This section includes appointments that were scheduled to occur 6 months from the date of the Encounter, up to a maximum of 20 appointments. The data comes from all [place] treatment facilities. Appointment Date/Time Appointment Type Appointme nt Facility Name August 05, 2023 09:30 AM [facility] August 12, 2023 09:30 AM [facility] Sep 04, 2023 01:00 PM [facility] Nov 17, 2023 09:00 AM AMBULATORY - MEDICINE [facility] Social History: Smoking Status (Most current) and Tobacco Use (All prior to encounter date) This section includes the most current, and the historical, smoking and tobacco- related health factors from the [place] facility where the Encounter took place. Current Smoking Status This section includes the most current smoking, or tobacco-related health factor, from the [place] facility where the Encounter took place. Date/Time Current Smoking Status Comment Nishant valderrama Nov 20, 2022 01:00 PM [place]-TOBACCO NEVER USED [facility] Tobacco Use History This section includes a history of the smoking, or tobacco-related health factors, that were collected on or before the date of the Encounter. The data comes from the [place] facility where the Encounter took place. Date/Time Smoking Status/Tobacco Use Comment F acility Sep 05, 2021 01:00 PM VA-TOBACCO NEVER USED [place] [facility] [place] [facility] May 10, 2020 09:00 AM VA-TOBACCO NEVER USED [facility] [place] [facility] Jan 07, 2019 10:45 AM VA-TOBACCO NEVER USED [place] [facility] [place] [facility] Jul 24, 2017 12:53 PM LIFETIME NON-TOBACCO USER [facility] [place] [facility] Jul 15, 2016 09:35 AM LIFETIME NON-TOBACCO USER [facility] [place] [facility] Sep 21, 2012 02:42 PM LIFETIME NON-TOBACCO USER [facility] [place] [facility] Encounter Notes: All associated encounter notes [...] would be worse. 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 Left knee pain (SNOMED CT [id number]) 8. Cough variant asthma 9. Postconcussion syndrome 10. Low back pain (SNOMED CT [id number]) 11. Pain in joint involving shoulder region [...] Normal Limited__25___ Degrees Right: Normal Limited__25 Degrees Makeda Test: Left: Normal___x__ Limited Right: Normal___x___ Limited [...] EXERCISE: MINUTES:25 Instruction in therex & issued [employer] HEP:Access Code: [email or web address] URL: [email or web address] Date: 07/28/2023 Prepared by: Sukhi Naidu Exercises [...] < 2/10. [x]Return to recreational activities at [facility], symptom free. [x]Pt will report no [...] 08/12/2023 11:20 SUKHI NAIDU [facility] [place] [facility]
--- OUTSIDE RECORDS SUMMARY | 2024-07-10 13:44 | XMS_ITS ---
Author Name [facility] [facility] [place] [facility] [place] Address [address] [place] [address] Care Team Providers Care Core Composer Feeder Name Role Phone SHELL TRAN Primary Care [...] Name Patient's Relationship to Policy [facility] CE ORGANIZAT ION [facility] Sep 28, 2020 [id number] SHONDA BARLOW PATIENT OPTUM RX [id number] PREFERRED PROVIDER ORGANIZAT ION (PPO) HEALT H [facility] [place] July 29, 2022 [id number] [phone] ESTELAVIANEYSHONDA VERGARA PATIENT UMR PREFERRED PROVIDER ORGANIZAT ION (PPO) HEALT H [facility] July 29, 2022 [id number] [id number] [phone] ESTELAVIANEYSHONDA VERGARA PATIENT UMR* PREFERRED PROVIDER ORGANIZAT ION (PPO) HEALT H [facility] July 29, 2022 [id number] [phone] SHONDA BARLOW PATIENT Selected Encounter This section includes the information on record at [place] for the Encounter. Date/Time Encounter Type Encounter Description Reason Provider Source August 05, 2023 09:30 AM MANUAL THERAPY 1/> [facility] ICD-10-CM M54.50 Low back pain, unspecified ERNESTO AMINI N IHE Encounter Template Text not used by [place] Assessments - Encounter Diagnoses This section includes the primary and secondary diagnoses documented for the Encounter. Date/Time Primary/Secondary Diagnosis Diagnosis Name Provider Source August 05, 2023 11:54 AM PRIMARY Low back pain, unspecified ELIZABETH AMIN N [facility] Plan of Treatment: Future Appointments (+ 6 months) and Future Tests (+/- 45 days) The Plan of Treatment section includes future care activities for the patient from all [place] [facility]. This section includes future appointments and future orders which are active, pending or scheduled. Future Appointments This section includes appointments that were scheduled to occur 6 months from the date of the Encounter, up to a maximum of 20 appointments. The data comes from all [place] treatment facilities. Appointment Date/Time Appointment Type Appointme nt Facility Name August 12, 2023 09:30 AM AM[place]ULATORY - [place] [facility] [facility] Sep 04, 2023 01:00 PM AMBULATORY - [place] [facility] [facility] Nov 17, 2023 09:00 AM AMBULATORY - MEDICINE [facility] Social History: Smoking Status (Most current) and Tobacco Use (All prior to encounter date) This section includes the most current, and the historical, smoking and tobacco- related health factors from the [facility] facility where the Encounter took place. Current Smoking Status This section includes the most current smoking, or tobacco-related health factor, from the [place] facility where the Encounter took place. Date/Time Current Smoking Status Comment Nishant ity Nov 20, 2022 01:00 PM [place]-TOBACCO [facility] Tobacco Use History This section includes a history of the smoking, or tobacco-related health factors, that were collected on or before the date of the Encounter. The data comes from the [place] facility where the Encounter took place. Date/Time Smoking Status/Tobacco Use Comment F acbrandy Sep 05, 2021 01:00 PM [place]-TO[place]CO [place] USED [facility] [place] [facility] May 10, 2020 09:00 AM VA-TOBACCO NEVER USED [facility] [place] [facility] Jan 07, 2019 10:45 AM VA-TOBACCO NEVER USED [facility] [place] [facility] Jul 24, 2017 12:53 PM LIFETIME NON-TOBACCO USER [facility] [place] [facility] Jul 15, 2016 09:35 AM LIFETIME NON-TOBACCO USER [facility] [place] [facility] Sep 21, 2012 02:42 PM LIFETIME NON-TOBACCO USER [facility] [place] [facility] Encounter Notes: All associated encounter [...] pain is present. 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
--- OUTSIDE RECORDS SUMMARY | 2024-07-10 13:44 | XMS_ITS | Continuity of Care Document ---
Author Organization [facility] ter Address [address] [place] [address]- Care Team Providers Care Coil Repair Technician Name Role Phone Maine Lanza DO [id number] Date[facility]s): 07/09/24 - 07/09/[address] [address]- Discharge Disposition: A-D/C Home Attending Physician: Idris Simpson MD Admitting Physician: Idris Simpson MD Referring Physician: Not on Staff, Referring MD Encounter Type: Disch ES Allergies, Adverse Reactions, Alerts No Known Allergies Medications aspirin 325 mg oral tablet 325 mg, 1, tablet, By Mouth, Daily, Refills 0, Maintenance, 10/15/21 11:11:00 AM EDT, Partial fill upon patient request if the prescription is for a schedule II opioid drug. Start Date: 10/15/21 Stop Date: 11/12/21 Status: Ordered Repeat number: 1 naproxen 500 mg oral tablet 1 tablet = 500 mg, By Mouth, 2 times a day, PRN Pain , Mild, 0 Refills, Maintenance, 10/15/21 11:11:00 AM EDT, Partial fill upon patient request if the prescription is for a schedule II opioid drug. Start Date: 10/15/21 Stop Date: 10/20/21 Status: Ordered Repeat number: 1 oxyCODONE 5 mg oral tablet 5 mg, 1, tablet, By Mouth, Every 4 hours, PRN, Refills 0, Tot. Refills 0, Maintenance, Pain , Moderate, 10/15/21 11:11:00 AM EDT, Partial fill upon patient request if the prescription is for a schedule II opioid drug. Start Date: 10/15/21 Status: Ordered Repeat number: 1 ProAir HFA 90 mcg/inh inhalation aerosol 2 puffs, Inhalation, Every 6 hours, 0 Refills, Maintenance, 10/15/21 10:48:00 AM EDT, Partial fill upon patient request if the prescription is for a schedule II opioid drug. Start Date: 10/15/21 Status: Ordered Repeat number: 1 Zofran 4 mg oral tablet 1 tablet = 4 mg, By Mouth, Every 6 hours, PRN Nausea, 0 Refills, Maintenance, 10/15/21 11:11:00 AM EDT, Partial fill upon patient request if the prescription is for a schedule II opioid drug. Start Date: 10/15/21 Status: Ordered Repeat number: 1 Vital Signs Most recent to oldest [Reference Range]: 1 2 Height 178 cm (07/09/24 9:53 PM) 178 cm (07/09/24 8:04 PM) Oxygen Saturation [94-100 %] 100 % (07/09/24 9:53 PM) 100 % (07/09/24 8:04 PM) Pulse Rate [55-90 bpm] 60 bpm (07/09/24 9:53 PM) 59 bpm (07/09/24 8:04 PM) Blood Pressure [90-138/55-84 mm Hg] 153/ 93mm Hg *H* (07/09/24 9:53 PM) 173/111mm Hg *H* (07/09/24 8:04 PM) Respiratory Rate [16-30 br/min] 16 br/mi n (07/09/24 9:53 PM) 16 br/min (07/09/24 8:04 PM) Temperature [96.8-100.4 DegF] 98.2 DegF (07/09/24 8:04 PM) Mode of Delivery (Oxygen) Room air (07/09/24 9:53 PM) Room air (07/09/24 8:04 PM) Blood pressure sites Arm, left (07/09/24 8:04 PM) Temperature Route Oral (07/09/24 8:04 PM) Dry Weight 82 kg (07/09/24 9:53 PM) 82 kg (07/09/24 8:04 PM) Dry Weight Obtained Via Patient/family s tated (07/09/24 8:04 PM) Note * Nettie Hdz MD: PERFORM Event Display: Patient Education Leaflets Authored Date: [id number] Physical Therapy Referral ?? 250 ?? This page is FOR PRESCRIBERS Only, ? DO NOT GIVE TO THE PATIENT?? Physical Therapy Referral Program for Management of Pain In an effort to reduce narcotic use, some of our ED patients will benefit from a direct referral [place] care.?? [facility] will see INSURED patients and has a system in place to avoid sending follow up paperwork to the ED prescribers.? Note: Non-[facility] physical therapy services will probably NOT be able to handle ED generated PT referrals. ?? Patients should still follow up with their PCP as soon as possible regarding their ongoing care. Inform patients that [facility] Rehab care will discuss insurance when they call.?? Some insurance plans limit the amount of PT a patient can receive each year. ?? Complete the FIRST PAGE of the patient???s referral sheet. Sun'Aq or write in diagnosis. M odify the timing for treatment, if needed. List any major precautions (i.e.?? Non-weight bearing limb), if needed. Sign, date and print your name at the bottom. ? Physical Therapy Referral Form Patient Instructions: You are being referred to physical therapy.?? This form is your referral and MUST be brought to your appointment. You need to call to set up your appointment. ?? This form can be used at any [facility] Physical Therapy location.?? A list of locations is attached.?? 1)?? DIAGNOSIS/ICD-10 (lower [place] one) Cervicalgia: M54.2 ? Strain of muscle, fascia and tendon at neck level: S16.1XXD? Radiculopathy, cervical region: M54.12? Mid back pain: M54.9 ? Low back pain:?? M54.5 Strain of muscle, fascia and tendon of lower back: S39.012D Radiculopathy, lumbosacral region: M54.17 Other:? 2)? [? ]? Evaluate and Treat 2 Times/Week for 4 weeks as needed [? ]?Other: 3)? [? ]? No Precautions [? ]?Precautions: ?? I hereby certify these services as medically necessary for the patient???s plan of care. Physician???s Signature Date Physician Name (printed)? Locations You can call any location below.?? Tell them you were seen in a [facility] Emergency Department and have a referral form.?? Remember to bring your referral form with you to the appointment. [place] [address]? [place] [address], [address]? [address] ? [place] [address]? [place] [address]? [address] ? [place] [address]? [place] [address] [place] [address] Road?[address] [place] [address] ? [place] [address]? [facility] [address] ? * Nettie Hdz MD: PERFORM Event Display: Patient Education Leaflets Authored Date: [id number] Neck Pain ?? [id number] Neck Pain Neck pain has several possible causes when there is no injury: ??? You can get a minor ligament sprain or muscle strain from a sudden minor neck movement. Sleeping with your neck in an awkward position can also cause this. ??? Some people respond to emotional stress by tensing the muscles of their neck, shoulders, and upper back. Chronic spasm in these musclescan cause neck pain and sometimes headaches. ??? Gradual??wear and tear of the joints in the spine can cause??degenerative arthritis. This can be a source of occasional or chronic neck pain. ??? The spinal disks may bulge and put pressure on a nearby spinal nerve. This can happen as a natural result of aging or repeated small injuries to the neck. The spinal disks are the cushions between each spi nal bone. This causes tingling, pain, or numbness that spreads from the neck to the shoulder, arm, or hand on one side. Acute neck pain usually gets better in 1 to 2 weeks. Neck pain related to disk disease, arthritis in the spinal joints, or spinal stenosis can become chronic and last for months or years. Spinal stenosis is narrowing of the spinal canal. X-rays are usually not ordered for the initial evaluation of neck pain. But X- rays may be done if you had a forceful physical injury, such as a car accident or fall. If pain continues and doesn???t respond to medical treatment, X-rays and other tests may be done at a later time. Less often, neck pain can be a sign of a more serious underlying medical condition. Home care ??? Rest and relax the muscles. Use a comfortable pillow that supports the head. It should also help keep the spine in a neutral position. The position of the head should not be tilted forward or backward. A rolled-up towel may help for a custom fit. ??? A soft cervical collar can help pain, especially pain with head movement. Your health care provider can tell you if this is appropriate for your condition. ??? Some people find relief with??heat. Heat can be applied with either a warmshower or bath or??a moist towel heated in the microwave??and??massage.??Others prefer??cold packs.You can make an ice pack by placing ice in a plastic bag that seals at the top. Then wrap the bag with a thin towel.??Try both and use the method that feels best for??15 to??20 minutes, several timesa day. ??? Whether using ice or heat, be careful that you don't injure your skin. Never put ice directly on the skin. Always wrap the ice in a towel or other type of cloth. This is very important, especially in people with poor skin sensations.? Try to reduce your stress level. Emotional stress can lead to neck muscle tension and get in the way of or delay the healing process. ??? You may use??ogoa-sdf-hjmzqvp pain medicine??to control pain, unless another medicine was prescribed. If you have chronic liver or kidney disease or ever had a stomach ulcer or digestive bleeding, talk with your provider before??using these medicines. ?? Follow-up care Follow up with your health care provider if your symptoms don't show signs of improvement after oneweek. Physical therapy or more tests may be needed. If X-rays, CT scans, or MRI scans were taken, you'll be told of any new findings that may affect your care. ?? Call 911 Call 911 if you have: ??? Sudden??weakness or numbness in one or both arms. ??? Neck swelling, difficulty or painful swallowing. ??? Trouble breathing. ??? Chest pain. ?? When to get medical advice Contact your health care provider right away if you have: ??? Pain that gets worse or spreads into one or both arms. ??? Weakness of arms or legs. ??? Loss of bowel or bladder control. ??? An increasing headache. ??? A fever of 100.4??F (38??C) or higher, or as advised by your provider. ?? Last Reviewed Date: 2024 00:00:00 ?? 0417-5717 [employer]. All rights reserved. This information is not intended as a substitute for professional medical care. Always follow your healthcare professional's instructions. ?? Patient Care team information Care Team Personnel Name: Maine Lanza DO Position: [facility] Outreach Member Role: PCP Address: [address] [place] [address] [place] [address]- Telecom: Care Team Related Persons Name: SOLOMON POWELL Name: ANDRE AUGUST Name: ANAT [place] Insurance Providers Guarantor name: AUGUST ANDRE Health Plan Information #: 1 Payer: [facility] Member Number: [id number] Policy Number: NA Group Number: NA Health Plan Information #: 2 Payer: [facility] Member Number: [id number] Policy Number: NA Group Number: NA
--- OUTSIDE RECORDS SUMMARY | 2024-07-10 13:44 | XMS_ITS ---
Author Organization [facility] Address [address] [place] [address] Care Team Providers Care Photographic Equipment Inspector Name Role Phone Poornima STEVENS, [facility] Primary Care Provider Unavail able Luis Solorio Unavailable [phone] REASON FOR VISIT gerd,change in bowels Problems Problem Type SNOMED Code ICD Code Onset Dates Problem Status W/U Status Risk Notes Problem Gastroesophageal reflux disease (557287940) Gastroesophageal reflux disease (K21.9) Active confirmed Encounters Encounter Location Date Provider Diagnosis [facility] Outpatient [address] [place], [place] [id number] 03/05/2023 Luis Solorio Other hemorrhoids K6 4.8 [...] * SHONDA BARLOWDOB: [birth year] (44 yo M)Acc No.[id number]:03/05/2023 EGD and COL/MAC Patient:?SHODNA BARLOW Provider:?Luis Solorio MD :1980???Age:43 Y???Sex:Male Amos e:03/05/2023 Address:[address] [place] [address] [id number] Pcp:Devorah Noguera MD Subjective: * Chief Complaints: * ???1. Gerd,change in bowels. * Medical History:? Objective: * Vitals:? Assessment: * Assessment: 1.?Other hemorrhoids - K64.8 (Primary)???2.?Change in bowel habits - R19.4???3.?Gastroesophageal reflux disease - K21.9???4.?Hiatal hernia - K44.9??? Plan: * Treatment: * Procedure Codes:?08682 DIAGN OSTIC COLONOSCOPY, 91735 UPPER GI ENDOSCOPY, BIOPSY * * The named appointment provid er may or may not be the originator of this progress note, and it is not deemed complete until electronically signed by the appointment provider. Sign off status: Pending * Provider:?Luis Solorio MD Date:? 023 Generated for Colton bhatti/Wenceslao/eTmelodysmitting on:?07/10/2024 07:15 AM EDT
--- OUTSIDE RECORDS SUMMARY | 2024-07-10 13:44 | XMS_ITS | Encounter Summary ---
Author Name [facility] [place] [facility] [place] Address [address] [place] [address] Care Team Providers Care Quality Process Lead Name Role Phone SHELL TRAN Primary Care [...] Name Patient's Relationship to Policy [facility] CE ORGANIZAT ION [facility] Sep 28, 2020 [id number] ESTELAVIANEYSHONDA VERGARA PATIENT OPTUM RX [id number] PREFERRED PROVIDER ORGANIZAT ION (PPO) HEALT H [facility] [place] July 29, 2022 [id number] [phone] ESTELASHERIF SHONDA PATIENT UMR PREFERRED PROVIDER ORGANIZAT ION (PPO) HEALT H [facility] [place] July 29, 2022 [id number] [phone] ESTELAVIANEYSHONDA VERGARA PATIENT UMR* PREFERRED PROVIDER ORGANIZAT ION (PPO) HEALT H [facility] July 29, 2022 [id number] [phone] SHONDA [place] PATIENT Selected Encounter This section includes the information on [place] for the Encounter. Date/Time Encounter Type Encounter Description Reason Provider Source Sep 04, 2023 01:00 PM THERAPEUTIC EXERCISES PHYSICAL THERAPY ICD-10-CM M54.50 Low back pain, unspecified [place] Encounter Template Text not used by [place] Assessments - Encounter Diagnoses This section includes the primary and secondary diagnoses documented for the Encounter. Date/Time Primary/Secondary Diagnosis Diagnosis Name Provider Source Sep 04, 2023 01:48 PM PRIMARY Low back pain, unspecified [place] [facility] [place] [facility] Plan of Treatment: Future Appointments (+ 6 months) and Future Tests (+/- 45 days) The Plan of Treatment section includes future care activities for the patient from all [place] [facility]. This section includes future appointments and future orders which are active, pending or scheduled. Future Appointments This section includes appointments that were scheduled to occur 6 months from the date of the Encounter, up to a maximum of 20 appointments. The data comes from all [place] treatment facilities. Appointment Date/Time Appointment Type Appointme nt Facility Name Nov 17, 2023 09:00 AM AMBULATORY - MEDICINE [facility] Social History: Smoking Status (Most current) and Tobacco Use (All prior to encounter date) This section includes the most current, and the historical, smoking and tobacco- related health factors from the [facility] facility where the Encounter took place. Current Smoking Status This section includes the most current smoking, or tobacco-related health factor, from the [place] facility where the Encounter took place. Date/Time Current Smoking Status Comment Nishant valderrama Nov 20, 2022 01:00 PM [place]AC[place] [facility] Tobacco Use History This section includes a history of the smoking, or tobacco-related health factors, that were collected on or before the date of the Encounter. The data comes from the [place] facility where the Encounter took place. Date/Time Smoking Status/Tobacco Use Comment F acility Sep 05, 2021 01:00 PM [place]-TOBACCO NEVER USED [place] [facility] [facility] May 10, 2020 09:00 AM VA-TOBACCO NEVER USED [place] [facility] [place] [facility] Jan 07, 2019 10:45 AM VA-TOBACCO NEVER USED [place] [facility] [place] [facility] Jul 24, 2017 12:53 PM LIFETIME NON-TOBACCO USER [place] [facility] [place] [facility] Jul 15, 2016 09:35 AM LIFETIME NON-TOBACCO USER [place] [facility] [place] [facility] Sep 21, 2012 02:42 PM LIFETIME NON-TOBACCO USER [place] [facility] [facility] Encounter Notes: All associated encounter notes [...] a cortizone injection, taped for lateral assist. [facility] in [place], this morning for cortizone and taping. Getting seen for PT for the knee at [facility], every other day since. I am scheduled [...] into thighs) SELF CARE/EDUCATION: MINUTES: HEP:Access Code: [email or web address] Patient education was provided for all aspects of care during this clinical encounter. ASSESSMENT:Patient had left knee meniscectomy on 08/19, since has been being seen at [facility] for PT follow up care. The patient returned to PT at [place] today reporting he has 2 more visits with [facility] PT. Pt was scheduled for follow up [...] < 2/10. [x]Return to recreational activities at [facility], symptom free. [x]Pt will report no increase [...]
--- OUTSIDE RECORDS SUMMARY | 2024-07-10 13:45 | XMS_ITS | Patient Health Record ---
Author Organization [facility] Address [address] [place] [address] Care Team Providers Care Manager Of Learning Name Role Phone Poornima STEVENS, [facility] Primary Care Provider Unavail able Osmin Luis Unavailable [phone] Allergies No Known Allergies Reason For Referral [...] Section Notes: He was previously in the [facility] and served in [place], [place], and [place] Problems Problem Type SNOMED Code ICD Code Onset Dates Problem Status W/U Status Risk Notes Problem [id number] Change in bowel habits (R19.4) Active confirmed Problem Gastroesophageal reflux disease (388006773) Gastroesophageal reflux disease (K21.9) Active confirmed Problem [id number] Gastroesophageal reflux disease, unspecified whether esophagitis present (K21.9) Active confirmed Plan Of Treatment Pending Test Test Name Order Date Pathology 03/05/2023 Future Test Test Name Order Date UPPER GI ENDOSCOPY 11/29/2022 COLONOSCOPY 11/29/2022 Insurance Providers Payer Name Payer Address Payer Phone Subscriber Number Group Number Insured Name Patient Relationship to Insured Coverage Start Date Coverage End Date [facility] [employer] [address] [place] ROJAS [id number] SHONDA BAR[place] Self - patient is the [...]
--- OUTSIDE RECORDS SUMMARY | 2024-07-10 13:45 | XMS_ITS | Encounter Summary ---
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 Role Phone MARC SHELL Primary Care [...] Name Patient's Relationship to Policy [facility] CE ORGANIZAT ION [facility] Sep 28, 2020 [id number] [phone] SHONDA BARLOW PATIENT [employer] RX [id number] PREFERRED PROVIDER ORGANIZAT ION (PPO) [facility] [place] July 29, 2022 [id number] [phone] ESTELAVIANEYSHONDA VERGARA PATIENT UMR PREFERRED PROVIDER ORGANIZAT ION (PPO) HEALT H [facility] [place] July 29, 2022 [id number] [phone] ESTELAVIANEYSHONDA VERGARA PATIENT UMR* PREFERRED PROVIDER ORGANIZAT ION (PPO) HEALT H [facility] July 29, 2022 [id number] SHONDA BARLOW PATIENT Selected Encounter This section includes the information on record at [place] for the Encounter. Date/Time Encounter Type Encounter Description Reason Pro vider Source Jul 09, 2024 06:36 PM Outpatient Encounter TELEPHONE TRIAGE IHE Encounter Template Text not used by [place] Plan of Treatment: Future Appointments (+ 6 months) and Future Tests (+/- 45 days) The Plan of Treatment section includes future care activities for the patient from all [place] treatmentfacilities. This section includes future appointments and future orders which are active, pending or scheduled. Future Appointments This section includes appointments that were scheduled to occur 6 months from the date of the Encounter, up to a maximum of 20 appointments. The data comes from all [place] treatment facilities. Appointment Date/Time Appointment Type Appointme nt Facility Name Dec 16, 2024 09:00 AM AMBULATORY - MEDICINE [facility] Lab Results: +/- 30 days of the encounter This section includes the Chemistry and Hematology Lab Results on record with [place] for the patient. Radiology Reports and Pathology Reports are provided separately, in subsequent sections. Lab Results This section contains the Chemistry/Hematology Results that were resulted 30 days before or 30 daysafter the date of the Encounter. Date/Time Source Result Type Result - Unit Interpretation Reference Range Specimen Type Comment Jun 17, 2024 09:26 AM [facility] LYME SEROLOGY PANEL SERUM Specimen [...] of the panel were validated at the [facility]. Results are considered [...] Jun 16, 2024 03:53 PM Reporting Lab: [facility] [address] [facility] [address] Performing Lab: [facility] [address] [facility] [address] TIER 1 LYME SCREENING EIA Negative Negat michelle LYME AB FINAL INTERPRETATION Negative Ne gative Jun 17, 2024 09:26 AM [facility] ANAPLASMA AND EHRLICHIA AB PANEL [...] analytical performance characteristics have been determined by [facility], [place], [place]. It has not been cleared or [...] analytical performance characteristics have been determined by [employer] [place], [place]. It has not been cleared or approved by the U.S. Food and Drug Administration. This assay has been validated pursuant to the CLIA regulations and is used for clinical purposes. Test Performed by [facility], [employer] [facility], [address] [place], [place] Fish Ramirez M.D., Ph.D., Director of Laboratories , CLIA [id number] TEST PERFORMED AT: , Ordering Provider: SHELL TRAN Report Released Date/Time: Jun 16, 2024 03:59 PM Reporting Lab: [facility] [address] [facility] [address] Performing Lab: [facility] [address] [address] E. chaffeensis Ab IgG <1:64 SEE BELOW E. chaffeensis Ab IgM <1:20 SEE BELOW A.phagocytophilum Ab IgG <1:64 SEE BEL OW A.phagocytophilum Ab IgM <1:20 SEE BEL OW EHRLICHIA CHAFFEENSIS AB INTER SEE NOTE A. phagocytophilum inter SEE NOTE Jun 17, 2024 09:26 AM [facility] TESTOSTERONE, TOTAL (WHV) SERUM Specimen Type : SERUM No comment entered. Ordering Provider: SHELL TRAN Report Released Date/Time: Jun 16, 2024 04:10 PM Reporting Lab: [facility] [address] [facility] [address] Performing Lab: [facility] [address] [facility] [address] TESTOSTERONE, TOTAL (WHV) 907.09 ng/dL H 2 20.00-892.00 Jun 17, 2024 09:26 AM [facility] SED RATE, AUTOMATED BLOOD Specimen Type: BLOO D No comment entered. Ordering Provider: SHELL TRAN Report Released Date/Time: Jun 16, 2024 03:53 PM Reporting Lab: [facility] [address] [facility] [address] Performing Lab: [address] [address] SED RATE, AUTOMATED <1 mm/h 0-15 Jun 17, 2024 09:26 AM [facility] CBC BLOOD Specimen Type: BLOOD No comment entered. Ordering Provider: SHELL TRAN Report Released Date/Time: Jun 16, 2024 03:53 PM Reporting Lab: [address] [address] Performing Lab: [address] [address] WBC 4.03 10*3/uL L 4.50-11.00 RBC 5.18 10*6/uL 4.23-5.66 HGB 15.6 g/dL 12.8-17 HCT 45.8 39.2-50.4 MCV 88.4 fL 82-99 MCHC 34.1 g/dL 30.8-35.1 PLT 196 10*3/uL 140-360 RDW-CV 12.2 12.0-16.0 MCH 30.1 pg 26.2-32.6 Jun 17, 2024 09:26 AM [facility] BASIC METABOLIC PANEL (fasting) SERUM Specime n Type: SERUM No comment entered. Ordering Provider: SHELL TRAN Report Released Date/Time: Jun 16, 2024 03:53 PM Reporting Lab: [address] [address] Performing Lab: [address] [address] UREA NITROGEN 11 mg/dL 7-25 GLUCOSE 86 mg/dL 65-100 SODIUM 140 mmol/L 135-145 POTASSIUM 5.3 mmol/L H 3.5-5.0 CHLORIDE 105 mmol/L 100-110 CO2 29 meq/L 20-30 CALCIUM 10.5 mg/dL H 8.5-10.2 CREATININE, Serum 1.00 mg/dL 0.50-1.40 eGFR(CKD-EPI 2020) >90 mL/min >60 Social History: Smoking Status (Most current) and Tobacco Use (All prior to encounter date) This section includes the most current, and the historical, smoking and tobacco- related health factors from the [place] facility where the Encounter took place. Current Smoking Status This section includes the most current smoking, or tobacco-related health factor, from the [place] facility where the Encounter took place. Date/Time Current Smoking Status Comment Facil ity Nov 17, 2023 09:00 AM VA-TOBACCO NEVER USED [facility] [place] [facility] Tobacco Use History This section includes a history of the smoking, or tobacco-related health factors, that were collected on or before the date of the Encounter. The data comes from the [place] facility where the Encounter took place. Date/Time Smoking Status/Tobacco Use Comment F acbrandy Nov 20, 2022 01:00 PM VA-TOBACCO NEVER USED [facility] [place] [facility] Sep 05, 2021 01:00 PM VA-TOBACCO NEVER USED [facility] [place] [facility] May 10, 2020 09:00 AM VA-TOBACCO NEVER USED [facility] [place] [facility] Jan 07, 2019 10:45 AM VA-TOBACCO NEVER USED [facility] [place] [facility] Jul 24, 2017 12:53 PM LIFETIME NON-TOBACCO USER [facility] [place] [facility] Jul 15, 2016 09:35 AM LIFETIME NON-TOBACCO USER [facility] [place] [facility] Sep 21, 2012 02:42 PM LIFETIME NON-TOBACCO USER [facility] [place] [facility] Encounter Notes: All associated encounter notes This section contains the clinical notes associated to the Encounter. Date/Time Encounter Note(s) Provider Source Jul 09, 2024 06:36 PM RN PROGRESS NOTE: LOCAL TITLE: CCC: CLINICAL TRIAGE STANDARD TITLE: RN PROGRESS NOTE DATE OF NOTE: JUL 09, 2024@18:36:28 ENTRY DATE: JUL 09, 2024@18:36:28 AUTHOR: ANIYAH WING COSIGNER: URGENCY: STATUS: COMPLETED Caller Verification Caller/Recipient Relation to Patient: Self Caller Name: SHONDA BARLOW Emergency Contact: UNK UNK Triage Summary Conducted triage/discussed symptoms Pain Score: 5 (Moderate to Severe Pain) Utilized the Triage Tool: Yes Chief Complaint: Neck Pain System WHEN: Within 24 Hours Nurse's Recommendation / WHEN: Within 24 Hours System WHERE: Clinic Nurse's Recommendation / WHERE: Clinic/[facility] WHEN/WHERE modifier reason: No Appointments Available Other - Modifiers: weekend Patient Disposition Patient/Caregiver agrees to plan of care: Yes Patient WHERE: Urgent Care non-[facility] Patient WHEN: Within 24 hours Nursing Plan and Disposition Referred patient to higher level of care Instructed to go to Urgent Care (UC) Provided location of Urgent Care Center Other course(s) of action Generated msg to PACT/Provider Provided guidance for worsening symptoms: *Caller/Patient* advised to call facilities [place] Clinical Contact Center or seek immediate medical attention for new or worsening symptoms Nurse Summary Nurse Summary: He called reporting higher than usual blood pressure (BP)154/106 HR 59. Repeat BP 150/98. BP medications taken 0700. Chief complaint of intermittent sharp neck pain radiating into back with tingling sensation in right arm. [place] states he has neck pain, ear pain with elevated blood pressure and sometimes sharp pain throughout his body. reported he visited local emergency department 06/16 for head pain. He had CT scan of head; he was started on Propranolol and subsequently hydrochlorothiazide after PCP visit. He reports he is taking both medications as prescribed. He states the propranolol improves migraine. Denies: fever, numbness, weakness, chest pain, SOB, difficulty breathing, sore throat, recent trauma/ injury, headache lightheadedness, dizziness. Advised to visit urgent care. Provided with the nearest [place] In-network community urgent care location, and phone number to call to confirm services and hour. [employer] number provided. Advised to call the CCC available 21/10 for further assistance, or with any questions or concerns. Advised on symptoms needing ER. Alerting PACT/provider with this note for review and follow-up. Clinical Contact Center Codes Clinic/Location: V1 CWM PHONE [facility] RN Decision Support System Output: Triage Complete Triage Date: 07/09/2024, 06:27 PM Triage Note: Decision Support Tool Used: TXCC Phone Triage 09 Jul 2024 21:37:21 +0000 [facility] Demographics 44 y/o Male Results CC: Neck Pain Software suggested: Within 24 Hours Software suggested follow-up location: Clinic Values and Measures Duration of CC: 1 Months Positive Responses HPI: neck pain, duration longer than 1 month HPI: neck pain, moderate to severe HPI: neck pain, worsening HPI: numbness or tingling, arm or hand, new HPI: pain or stiffness, neck, worsening, duration longer than 1 week VS: temperature not taken Negative Responses Denies: HPI: arm or hand weakness, unilateral, new Denies: HPI: buccal mucosal swelling Denies: HPI: cervical lymph node swelling and tenderness Denies: HPI: chest pain, with neck pain Denies: HPI: fever, subjective Denies: HPI: neck erythema, worsening Denies: HPI: neck injury, within past 48 hours Denies: HPI: neck pain, radiates to arm Denies: HPI: neck pain, severe Denies: HPI: neck swelling, unilateral Denies: HPI: neck swelling, worsening Denies: HPI: preauricular swelling Denies: HPI: sore throat Denies: HPI: sublingual pain, severe Denies: HPI: submandibular swelling, worsening Denies: HPI: tongue swelling, worsening Denies: MEDS: medication risk for dystonia Denies: PMH: angina Denies: PMH: CHF Denies: PMH: diabetes Denies: PMH: heart attack Education Verbal Education Provided for: Neck Pain Home Care IMPORTANT: This note was created by [facility] Clinical Contact Center staff. Please do not alert the staff member by adding them as a signer for future communications. Alerts are not monitored by this user. /shweta/ ANIYAH WING RN VISN 2 [facility] NURSE Signed: 07/09/2024 18:36 Receipt Acknowledged By: * AWAITING SIGNATURE * CECIL MORALES * AWAITING SIGNATURE * SHELL TRAN * AWAITING SIGNATURE * ISMAEL CHAUDHARY DYION [facility]
[2024-07-10 13:47] LABS: Basophils Percent Auto 0.6 % (0-2); Eosinophils Absolute Auto 0.2 X10*3/uL (0.0-0.4); Eosinophils Percent Auto 3.3 % (0-4); Hematocrit 43.6 % (42.0-52.0); Hemoglobin 15.3 g/dl (14.0-18.0); Imm Gran Abs Auto 0.01 X10*3/uL (0.00-0.03); Imm Gran Pct Auto 0.2 % (0.0-0.4); Lymphocytes Percent Auto 40.7 % (20-40); Mean Corpuscular HGB Conc 35.1 g/dl (31.0-36.0); Mean Corpuscular Hemoglobin 30.2 pg (27.0-33.0); Mean Corpuscular Volume 86.2 fL (80.0-98.0); Mean Platelet Volume 9.6 fL (9.4-12.4); Monocytes Absolute Auto 0.5 X10*3/uL (0.1-1.2); Monocytes Percent Auto 9.8 % (2-11); Neutrophils Absolute Auto 2.2 x10*3/uL (2.0-8.3); Neutrophils Percent Auto 45.4 % (45-73); Platelet Count 204 X10*3/uL (160-400); Red Blood Count 5.06 X10*6/uL (4.60-5.80); Red Cell Distribution Width 12.2 % (11.0-16.0); White Blood Count 4.9 X10*3/uL (4.8-10.8)
[2024-07-10 13:55] LABS: Alanine Aminotransferase 17 U/L (0-40); Albumin Level 4.4 g/dL (3.5-5.0); Alkaline Phosphatase 55 U/L (39-117); Anion Gap 13 (12-20); Aspartate Amino Transferase 20 U/L (5-37); Bilirubin Total 0.3 mg/dL (0.0-1.0); Blood Urea Nitrogen 14 mg/dL (9-16); Calcium 9.6 mg/dL (8.4-10.2); Carbon Dioxide 28 mmol/L (22-29); Chloride 103 mmol/L (96-108); Creatinine Clr Calc Pharmacy 93.6; Estimated Glomerular Filt Rate > 60; Glucose Random 103 mg/dL (60-115); Magnesium 1.8 mg/dL (1.6-2.6); Potassium 3.8 mmol/L (3.3-5.1); Sodium 140 mmol/L (135-145); Total Protein 7.4 g/dL (6.5-8.0)
[2024-07-10 14:06] LABS: Troponin-I High Sensitivity < 2.7 ng/L (<3.5-35.0)
--- NOTE | 2024-07-10 14:12 | ED.HA ---
HPI - Headache General Chief Complaint: Headache Stated Complaint: high bp Time Seen by Provider: 07/10/24 13:33 Related Data Home Medications ?Medication ?Instructions ?Recorded ?Confirmed atomoxetine 40 mg capsule 40 mg PO QAM 03/03/23 03/03/23 omeprazole 20 mg capsule,delayed 20 mg PO DAILY 03/03/23 03/03/23 release prazosin 2 mg capsule 2 mg PO BEDTIME 03/03/23 03/03/23 Previous Rx's ?Medication ?Instructions ?Recorded hydrochlorothiazide 25 mg tablet 25 mg PO DAILY #90 tabs 07/03/24 Allergies Allergy/AdvReac Type Severity Reaction Status Date / Time No Known Allergies Allergy Verified 07/10/24 13:14 [facility] Past Medical History Medical History PTSD (post-traumatic stress disorder) ADHD (attention deficit hyperactivity disorder) GERD (gastroesophageal reflux disease) Asthma Surgical History Hx of knee surgery Social History Social History Patient Tobacco Use Status: Never used Tobacco Advance Directives: No Advance Directives Information Provided: No Do you have a plan to hurt others: No Plan Physical Exam Vital Signs: Vital Signs: Last Vital Signs Temp 98.6 F 07/10/24 13:12 Pulse 63 07/10/24 13:12 Resp 16 07/10/24 13:12 BP 155/104 H 07/10/24 13:12 Pulse Ox 100 07/10/24 13:12 O2 Del Method Room Air 07/10/24 13:12 BMI result Body Mass Index 23.7 Medical Decision Making Lab Data 07/10/24 13:30 07/10/24 13:30 Labs: Lab Results 07/10/24 Range/Units 13:30 WBC 4.9 (4.8-10.8) X10*3/uL RBC 5.06 (4.60-5.80) X10*6/uL Hgb 15.3 (14.0-18.0) g/dl Hct 43.6 (42.0-52.0) % MCV 86.2 (80.0-98.0) fL MCH 30.2 (27.0-33.0) pg MCHC 35.1 (31.0-36.0) g/dl RDW 12.2 (11.0-16.0) % Plt Count 204 (160-400) X10*3/uL MPV 9.6 (9.4-12.4) fL Immature Gran % (Auto) 0.2 (0.0-0.4) % Neut % (Auto) 45.4 (45-73) % Lymph % (Auto) 40.7 H (20-40) % [place] % (Auto) 9.8 (2-11) % Eos % (Auto) 3.3 (0-4) % Baso % (Auto) 0.6 (0-2) % Lymph # (Auto) 2.0 (1.2-4.9) X10*3/uL [place] # (Auto) 0.5 (0.1-1.2) X10*3/uL Eos # (Auto) 0.2 (0.0-0.4) X10*3/uL Baso # (Auto) 0.0 (0.0-0.2) X10*3/uL Abs Immat Gran (auto) 0.01 (0.00-0.03) X10*3/uL Absolute Neuts (auto) 2.2 (2.0-8.3) x10*3/uL Absolute Nucleated RBC 0.000 (0.0-0.012) X10*3/uL Nucleated RBC % (auto) 0.0 (0.0-0.2) /100WBC Sodium 140 (135-145) mmol/L Potassium 3.8 (3.3-5.1) mmol/L Chloride 103 (96-108) mmol/L Carbon Dioxide 28 (22-29) mmol/L Anion Gap 13 (12-20) BUN 14 (9-16) mg/dL Creatinine 1.05 (0.5-1.4) mg/dL Estim Creat Clear Calc 93.6 Estimated GFR > 60 Random Glucose 103 (60-115) mg/dL Calcium 9.6 D (8.4-10.2) mg/dL Magnesium 1.8 (1.6-2.6) mg/dL Total Bilirubin 0.3 (0.0-1.0) mg/dL AST 20 (5-37) U/L ALT 17 (0-40) U/L Alkaline Phosphatase 55 (39-117) U/L Troponin I High Sens < 2.7 (<3.5-35.0) ng/L Total Protein 7.4 (6.5-8.0) g/dL Albumin 4.4 (3.5-5.0) g/dL Discharge Plan Discharge Prescriptions: No Action omeprazole 20 mg Capsule,Delayed Release(Dr/Ec) 20 mg PO DAILY prazosin 2 mg Capsule 2 mg PO BEDTIME atomoxetine 40 mg Capsule 40 mg PO QAM hydrochlorothiazide 25 mg tablet 25 mg PO DAILY Qty: 90 0RF Print Language: Portuguese
[2024-07-10 14:15] VITALS: BP 170/102; PULSE 84; RESP 14; O2SAT 98
[2024-07-10 14:32] VITALS: BP 168/100
[2024-07-10] MEDS: amLODIPine Besylate 5 MG TABLET PO (14:32)
[2024-07-10] MEDS: Butalb/Acetamin/Caff 50/325/40 TABLET 1 TAB PO (14:33)
[2024-07-10 15:11] VITALS: BP 136/98; PULSE 60; RESP 16; TEMP 36.7; O2SAT 100
[2024-07-10 16:28] VITALS: BP 134/96; PULSE 58; RESP 16; TEMP 36.7; O2SAT 97
== END 2024-07-10 16:33 | disposition home or self-care (01) ==
PROVIDERS: Physician Assistant; Registered Nurse Emergency; Emergency Provider Emergency Medicine; PCP Internal Medicine
DX: R07.89 Other chest pain (principal); R51.9 Headache, unspecified; R10.2 Pelvic and perineal pain; I10 Essential (primary) hypertension; Z79.899 Other long term (current) drug therapy
CPT/HCPCS: 36415; 71046; 80053; 83735; 84443; 84484; 85025; 93005; 93975; 99284; 99285

== ENCOUNTER → 2024-07-10 13:14 | Outpatient (BNV) | payer OTHER, SELFPAY | PROVIDERS: Emergency Provider Emergency Medicine; PCP Internal Medicine; Visit Provider Internal Medicine Cardiovascular Disease | DX: R07.9 Chest pain, unspecified (principal) | CPT/HCPCS: 93010 ==

== ENCOUNTER → 2024-07-10 14:10 | Outpatient (BNV) | payer OTHER, SELFPAY | PROVIDERS: Emergency Provider Emergency Medicine; PCP Internal Medicine; Visit Provider Radiology Diagnostic Radiology | DX: I1A.0 Resistant hypertension (principal); R07.9 Chest pain, unspecified | CPT/HCPCS: 71046; 93975 ==